=== PATIENT | male | born 1940 | race Caucasian/White ===

== ENCOUNTER 2023-05-07 10:14 | Emergency (ER) | payer MEDICARE, OTHER, SELFPAY ==
[2023-05-07 10:18] VITALS: BP 169/96
--- NOTE | 2023-05-07 11:30 | ED.GENMED ---
History of Present Illness
General
Chief Complaint: Rectal Bleeding
Time Seen by Provider: 05/07/23 10:36
Travel History
Have you had any contact with someone who has COVID-19?: No
Do you have any symptoms of coronavirus? Fever > 100 degrees, chills, cough, shortness of breath, sore throat, loss of taste or smell, muscle aches, or headache?: No
History of Present Illness
History of Present Illness:
82-year-old male with history of hypertension and coronary artery disease currently on dual antiplatelet therapy presents to the emergency department for evaluation of 1 episode of rectal bleeding this morning. He states he had a bowel movement and
noted blood in the bowl. Denies any rectal pain or rectal itching. Denies any abdominal pain. Denies any dizziness or lightheadedness.
Past History
Past History
ED Past Medical History: CAD, COPD, CVA, GERD, HTN, Hypercholesterolemia, [place] and Other
ED Past Surgical History: Cardiac (Stent) and Other (Skin grafting many years ago for severe del real. Kidney stone removal)
Patient has exhibited threatening behavior?: No
PSI?: No
Social History
Tobacco: Other (Cigar)
Alcohol: Occasional
Drug: None
Personal: Single
Living: alone
Employment: Retired
Family History
Family History: Other (No significant)
Review of Systems
Review of Systems
Allergies reviewed?: Yes
All Other Systems: ROS reviewed and negative except as documented in HPI and ROS
Phy Exam
Physical Exam
Physical Exam:
GEN: Well appearing, NAD, WDWN
HEENT: Oral mucosa moist, no scleral icterus
Cardiac: Regular rate
Lung: No respiratory distress, no tachypnea
Rectal: Brown stool in the rectal vault, trace amounts of bright red blood, no evidence for active bleeding, no fissure, no palpable masses or tenderness
MSK: No gross deformity or injuries
Skin: Good color, no pallor or jaundice, no rashes
Neuro: AO x3, moves all extremities freely
Psych: Calm, cooperative
Course
Orders/Labs/Results
Orders:
Orders
05/07/23 10:42
Basic Metabolic Panel Urgent
Complete Blood Count/No Diff Urgent
Vital Signs
Initial and Last Documented VS:
Initial Vital Signs
Temp Pulse Resp BP Pulse Ox
98.1 F 71 16 169/96 98
05/07/23 10:18 05/07/23 10:18 05/07/23 10:18 05/07/23 10:18 05/07/23 10:18
Last Documented Vital Signs
Temp Pulse Resp BP Pulse Ox
98.1 F 71 16 169/96 98
05/07/23 10:18 05/07/23 10:18 05/07/23 10:18 05/07/23 10:18 05/07/23 10:18
MDM/Problems Addressed
MDM/Problems Addressed:
Suspect internal hemorrhoidal bleeding. The patient was ordered for blood work especially to assess the hemoglobin however the patient declined this, stated to me 'I think I will be fine'. Will prescribe hydrocortisone suppositories for the next 5
days. Would not advise him to discontinue his antiplatelets given his known coronary disease. Ultimately recommend outpatient GI or colorectal follow-up, ED return parameters discussed
*Critical Care Note
Total Time (30-74mins, 75-104mins- exclusive of procedures): Not Applicable
ED Attending Note
-
Portions of this chart may have been created with voice recognition software.� Occasional wrong word or��sound alike� substitutions may have occurred due to the inherent limitations of voice recognition software.
Discharge Plan
Departure
Patient Disposition: Home (Routine Discharge)
Date of Disposition: 05/07/23
Time of Disposition: 11:31
Patient with high blood pressure during this ER visit?: No
Discharge Problem:
Rectal bleeding
Instructions: Bloody Stools, Adult (DC)
Prescriptions:
New
hydrocortisone acetate [Anusol-HC] 25 mg suppository
25 mg PA DAILY 5 Days Qty: 12 0RF
No Action
clopidogrel 75 mg Tablet
75 mg PO QPM
aspirin 81 mg Tablet,Delayed Release (Dr/Ec)
81 mg PO QPM
atorvastatin 80 mg Tablet
80 mg PO QPM Qty: 90 5RF
lisinopril 20 mg Tablet
20 mg PO BID Qty: 60 5RF
amlodipine 5 mg Tablet
5 mg PO BID Qty: 60 5RF
metoprolol succinate 50 MG tablet extended release 24 hr
50 mg PO QPM
Referrals:
Joesph Robbins MD [Active] -
Irwin Hein MD [Family Provider] -
Interventions
Interventions:
*Risk Screen - Suicide Last Done: 05/07/23 11:22
*General Assessment Last Done: 05/07/23 11:22
*Neglect/Abuse Screening Last Done: 05/07/23 11:22
ED- Fall Risk Assessment Last Done: 05/07/23 11:22
*ED COVID-19 Vaccine History Last Done: 05/07/23 10:18
*Nursing Disposition Last Done: 05/07/23 11:37
EA-Jtpdid-Qqfhqbdwde Assessment Last Done: 05/07/23 11:22
ED- Pulmonary Assessment Last Done: 05/07/23 11:22
Discharge Date and Time
Discharge Date/Time: 05/07/23 11:37
== END 2023-05-07 11:37 | disposition home or self-care (01) ==
LOC: EMR 10:14
PROVIDERS: EMERGENCY PHYSICIAN Emergency Medicine; FAMILY PHYSICIAN Internal Medicine
DX: K62.5 Hemorrhage of anus and rectum (principal); I10 Essential (primary) hypertension; I25.10 Atherosclerotic heart disease of native coronary artery without angina pectoris; Z79.02 Long term (current) use of antithrombotics/antiplatelets; J44.9 Chronic obstructive pulmonary disease, unspecified; K21.9 Gastro-esophageal reflux disease without esophagitis; E78.00 Pure hypercholesterolemia, unspecified; I25.2 Old myocardial infarction; Z86.73 Personal history of transient ischemic attack (TIA), and cerebral infarction without residual deficits
CPT/HCPCS: 99282

== ENCOUNTER 2023-06-02 22:38 | Inpatient (IN) | payer MEDICARE, OTHER, SELFPAY ==
[2023-06-02 19:05] VITALS: BP 125/91
[2023-06-02 19:30] VITALS: BP 177/82
[2023-06-02 19:34] LABS: % Eosinophils 1.4 % (0-6); % Immature Granulocytes 0.3 % (0-0.5); % Lymphocytes 22.1 % (20.5-51.1); % Monocytes 8.9 % (1.7-9.3); % Neutrophils 66.3 % (42.2-75.2); Absolute Basophils 0.1 10^3/uL (0-0.2); Absolute Eosinophils 0.1 10^3/uL (0-0.7); Absolute Lymphocytes 1.6 10^3/uL (1.2-3.4); Absolute Monocytes 0.7 10^3/uL (0.1-0.6); Absolute Neutrophils 4.8 10^3/uL (1.4-6.5); Hematocrit 41.5 % (39.0-52.0); Hemoglobin 14.3 g/dL (13.0-18.0); Mean Corp Hgb Conc. 34.5 g/dL (33.0-37.0); Mean Corpuscular Hgb 29.1 pg (27.0-31.0); Mean Corpuscular Volume 84.3 fL (80.0-94.0); Mean Platelet Volume 9.4 fL (7.4-10.4); Nucleated Red Blood Cells % 0 % (-); Platelet Count 274 10^3/uL (130-400); Red Blood Cell Count 4.92 10^6/uL (4.70-6.10); Red Cell Dist. Width 13.1 % (11.5-14.5); White Blood Cell Count 7.3 10^3/uL (4.8-10.8)
--- NOTE | 2023-06-02 19:39 | ED.GENMED ---
History of Present Illness
General
Chief Complaint: Chest Pain
Time Seen by Provider: 06/02/23 19:21
Travel History
Have you had any contact with someone who has COVID-19?: No
Do you have any symptoms of coronavirus? Fever > 100 degrees, chills, cough, shortness of breath, sore throat, loss of taste or smell, muscle aches, or headache?: No
History of Present Illness
History of Present Illness:
82-year-old male with history of coronary artery disease, hypertension, hyperlipidemia, and COPD presents to the emergency department for evaluation of brief onset of chest pain occurring approximately 5 PM today. He states he was seated on his
couch watching TV. The episode lasted approximately 20 to 25 minutes. He took baking soda orally and feels that symptoms improved after belching. Does not feel comparable to past MIs. Denies any current symptoms. Denies any associated fever,
chills, sweats, nausea, vomiting, or diarrhea. Does continue to smoke. Was last catheterized approximately 6 weeks ago, underwent PCI to the LAD. He states he is compliant with his cardiac medications
Past History
Past History
ED Past Medical History: CAD, COPD, CVA, GERD, HTN, Hypercholesterolemia, [place] and Other
ED Past Surgical History: Cardiac (Stent) and Other (Skin grafting many years ago for severe del real. Kidney stone removal)
Patient has exhibited threatening behavior?: No
PSI?: No
Social History
Tobacco: Other (Cigar)
Alcohol: Occasional
Drug: None
Personal: Single
Living: alone
Employment: Retired
Family History
Family History: Other (No significant)
Review of Systems
Review of Systems
Allergies reviewed?: Yes
All Other Systems: ROS reviewed and negative except as documented in HPI and ROS
Phy Exam
Physical Exam
Physical Exam:
GEN: Well appearing, NAD, WDWN
HEENT: Oral mucosa moist, no scleral icterus
Cardiac: Regular rate and rhythm, no murmurs, radial pulses 2+ bilaterally
Lung: No respiratory distress, no tachypnea
MSK: No gross deformity or injuries
Skin: Good color, no pallor or jaundice, no rashes
Neuro: AO x3, moves all extremities freely
Psych: Calm, cooperative
Scores
Heart Score for Chest Pain Patients
STEMI patient?: No
History: Moderately Suspicious
ECG: Nonspecific Repolarization
Age: >/= 65 years
Risk Factors: >/= 3 Risk Factors or History of CAD
Troponin: >/= 3 x Normal Limit
Heart Score for Chest Pain Patients: 8
Heart Score Risk: 72.7 % MACE over next 6 weeks
Course
Orders/Labs/Results
Orders:
Orders
06/02/23 18:56
Electrocardiogram (*1) Urgent
Reason for Study: Chest Pain
EKG- Treatment ONCE
06/02/23 19:26
Complete Blood Count/With Diff Urgent
Comprehensive Metabolic Panel Urgent
Glycohemoglobin (HgbA1c) Urgent
Troponin I Urgent
06/02/23 20:16
CR Chest - 2 Views Urgent
Comment:
Reason For Exam: chest pain
06/02/23 20:25
Heparin 3,800 units IV NOW STA
Nursing to Place Non Medication Order As Directed
Physician Order: PTT 6 hours after initial start of Heparin infusion
Above order entered?: Yes
06/02/23 20:30
Heparin 56145 Units/250 ml 25,000 units in 250 ml IV PER PROTOCOL
Weight to be used for heparin protocol in kilograms (kg):: 64
Protocol:: Cardiac Tx/Acute Coronary
PTT Goal Range to be used:: PTT 73 to 111 seconds
Order type:: Initial
INITIAL Infusion Dose (UNITS/KG/hr) & then follow protocol:: 12 units/kg/hr
Infusion Dose in UNITS/hr & then follow protocol (UNITS/hr):: 750
INFUSION RATE in mL/hr & then follow protocol (mL/hr):: 7.5
PTT less than or equal to 64 seconds:: Increase rate by 200 units/hr (+ 2 mL/hr)
PTT 64.1 to 72.9 seconds:: Increase rate by 100 units/hr (+ 1 mL/hr)
PTT 73 to 111 seconds:: Target Range. No change in rate.
PTT 111.1 to 130.9 seconds:: Decrease rate by 100 units/hr (- 1 mL/hr)
PTT 131 to 199.9 seconds:: HOLD for 1 hr. Then decrease rate by 200 units/hr (- 2 mL/hr)
PTT greater than or equal to 200 seconds:: HOLD for 2 hrs & Notify Provider. Then decrease by 200 units/hr (-
2 mL/hr)
Lab follow-up:: Each change, PTT q6h until 2 consecutive are therapeutic. Then PTT
daily.
06/02/23 20:35
PTT Urgent
Comment: Obtain baseline before beginning heparin infusion if not already collected
06/02/23 21:30
Admit/Transfer Patient As Directed
Co-Sign Provider:
Level of Care: Inpatient admission
Assign to:: IVU
Physician / Group: randi rucker
Diagnosis: chest pain
Reason for Hospitalization: chest pain
Expected length of stay greater than two midnights?: Yes
ELOS- Estimated Length of Stay in days: 3
I certify the patient meets the requirements for IP care: Yes
06/02/23 21:31
Code Status As Directed
Resuscitation Status: Full Code
06/02/23 22:42
Troponin I Q3H
Comment: at admit & Q3H for 3 total including ED draws, obtain ECG with each level
06/02/23 22:42
CARDIOLOGY CONSULT Routine
Consulting Provider: Aashish Burris
Was physician already notified: Yes
Heparin Protocol- PTT Orders As Directed
PTT per Heparin protocol: -Obtain CBC and baseline PTT - if not already collected.
-Obtain PTT 6 hours from start of infusion. Then, every 6 hours until 2 consecutive
PTT's are therapeutic. Then, PTT Daily.
-With each rate change, obtain PTT every 6 hours until 2 consecutive PTT's are
therapeutic. Then, PTT Daily.
Activity As Directed
Activity Level: As Tolerated
ECG as needed As Directed
ECG as needed for:: Chest Pain
Additional Instructions:: with chest pain x 2 episodes.
INT (Intravenous Needle Therapy) As Directed
Comment: maintain peripheral IV access
Intake/ Output As Directed
Frequency: Per unit guidelines
Notify MD As Directed
Notify physician if: PTT is greater than or equal to 200.
Vital Signs As Directed
Frequency: q4h
Weight As Directed
Frequency: Daily
Pt Eval And Treat Routine
Activity Level: As Tolerated
06/03/23 00:00
Electrocardiogram (*1) Q6H
Reason for Study: Chest Pain
Comment: at admission and Q3H for total of 3, to be done with each troponin
06/03/23 03:00
PTT Urgent
06/03/23 06:00
Basic Metabolic Panel IN AM
Cardiovascular Evaluation IN AM
Complete Blood Count/No Diff IN AM
06/03/23 07:00
Electrocardiogram (*1) Q6H
Reason for Study: Chest Pain
Comment: at admission and Q3H for total of 3, to be done with each troponin
06/03/23 08:00
Amlodipine [Norvasc] 5 mg PO BID
Lisinopril [Zestril] 20 mg PO DAILY
06/03/23 18:00
Aspirin Low Dose EC [Aspir Low (Enteric Coated)] 81 mg PO QPM
Atorvastatin [Lipitor] 80 mg PO QPM
Clopidogrel Bisulfate [Plavix] 75 mg PO QPM
Metoprolol Xl [Toprol Xl] 50 mg PO QPM
06/04/23 06:00
Basic Metabolic Panel IN AM
Complete Blood Count/No Diff IN AM
Complete Blood Count/No Diff Q2D
Comment: notify provider: Platelet count < 130,000 or decrease by 50% from baseline
06/05/23 06:00
Basic Metabolic Panel IN AM
Complete Blood Count/No Diff IN AM
06/06/23 06:00
Basic Metabolic Panel IN AM
Complete Blood Count/No Diff IN AM
Complete Blood Count/No Diff Q2D
Comment: notify provider: Platelet count < 130,000 or decrease by 50% from baseline
06/07/23 06:00
Basic Metabolic Panel IN AM
Complete Blood Count/No Diff IN AM
06/08/23 06:00
Complete Blood Count/No Diff Q2D
Comment: notify provider: Platelet count < 130,000 or decrease by 50% from baseline
06/10/23 06:00
Complete Blood Count/No Diff Q2D
Comment: notify provider: Platelet count < 130,000 or decrease by 50% from baseline
06/12/23 06:00
Complete Blood Count/No Diff Q2D
Comment: notify provider: Platelet count < 130,000 or decrease by 50% from baseline
06/14/23 06:00
Complete Blood Count/No Diff Q2D
Comment: notify provider: Platelet count < 130,000 or decrease by 50% from baseline
06/16/23 06:00
Complete Blood Count/No Diff Q2D
Comment: notify provider: Platelet count < 130,000 or decrease by 50% from baseline
06/18/23 06:00
Complete Blood Count/No Diff Q2D
Comment: notify provider: Platelet count < 130,000 or decrease by 50% from baseline
Abnormal Lab Results
06/02/23
19:26
Absolute Monos (auto) 0.7 H 10^3/uL
(0.1-0.6)
Glucose 104 H mg/dl
(70-99)
Troponin I 0.242 H* ng/ml
06/02/23 19:26
06/02/23 19:26
Vital Signs
Initial and Last Documented VS:
Initial Vital Signs
Temp Pulse Resp BP Pulse Ox
96.9 F L 78 18 125/91 98
06/02/23 19:05 06/02/23 19:05 06/02/23 19:05 06/02/23 19:05 06/02/23 19:05
Last Documented Vital Signs
Temp Pulse Resp BP Pulse Ox
98.1 F 68 20 156/81 99
06/02/23 22:43 06/02/23 23:15 06/02/23 22:43 06/02/23 22:56 06/02/23 23:46
MDM/Problems Addressed
MDM/Problems Addressed:
82-year-old male presents with brief episode of chest pain lasting approximately 30 minutes. His EKG is unchanged from prior however he has a significant troponin elevation. He has numerous cardiovascular risk factors and continues to smoke.
Although his current symptoms are not typical for his prior angina/MD related pain, we cannot discount the significance of the troponin elevation particular given his significant known coronary artery disease. Patient started on heparin. As he is
maintained on dual antiplatelets at home we will not load him with aspirin at this time. Will admit to the hospitalist service with cardiology consultation for further management
Comment
Comment:
EKG independently interpreted by me shows normal sinus rhythm at a rate of [address] depressions in lead V4 as well as flattening/inverted T waves in aVL. Comparable to past EKGs
*Critical Care Note
Total Time (30-74mins, 75-104mins- exclusive of procedures): 30 minutes
comment:
Critical care time: 30 minutes
Critical care time was exclusive of: Separately billable procedures, treating other patients, and teaching time
Critical care was necessary to treat or prevent imminent or life-threatening deterioration of the following conditions: NSTEMI
Critical care time spent personally by me on the following activities:
[x] Review of old charts
[x] Obtaining history from patient or surrogate
[x] Ordering and review of the laboratory studies
[x] Ordering and review of radiographic studies
[x] Ordering and performing treatments and interventions
[x] Patient patient's response to treatment
[x] Development of treatment plan with patient or surrogate
ED Attending Note
-
Portions of this chart may have been created with voice recognition software.� Occasional wrong word or��sound alike� substitutions may have occurred due to the inherent limitations of voice recognition software.
Discharge Plan
Departure
Patient Disposition: Admit
Date of Disposition: 06/02/23
Time of Disposition: 20:40
Admit to: IVU
Presentation/result/management discussed w/ accepting MD/DO: Hospitalist
Discharge Problem:
Non-ST elevation (NSTEMI) myocardial infarction
Interventions
Interventions:
*Risk Screen - Suicide Last Done: 06/02/23 22:53
*General Assessment Last Done: 06/02/23 19:05
*Neglect/Abuse Screening Last Done: 06/02/23 19:05
ED- Fall Risk Assessment Last Done: 06/02/23 20:56
*ED COVID-19 Vaccine History Last Done: 06/02/23 22:49
*Nursing Disposition Last Done: 06/02/23 22:42
ED- Cardiac Assessment Last Done: 06/02/23 20:56
Discharge Date and Time
Discharge Date/Time: 06/02/23 22:44
[2023-06-02 19:48] LABS: ALT (SGPT) 21 U/L (0-50); AST (SGOT) 35 U/L (17-59); Albumin 4.5 g/dl (3.5-5.0); Alkaline Phosphatase 89 U/L (38-126); Blood Urea Nitrogen 20 mg/dl (9-20); Carbon Dioxide 28 mmol/L (22-30); Chloride 99 mmol/L (98-107); Glucose 104 mg/dl (70-99); Sodium 137 mmol/L (135-145); Total Bilirubin 0.6 mg/dl (0.2-1.3); Total Protein 7.6 g/dl (6.3-8.2); eGFR > 60.00
[2023-06-02 20:00] VITALS: BP 153/80
[2023-06-02 20:04] LABS: Troponin I 0.242 ng/ml
[2023-06-02 20:55] LABS: APTT 24.8 Sec (23.4-35.0)
[2023-06-02] MEDS: HEPARIN 3800 UNITS IV (20:57)
[2023-06-02] MEDS: HEPARIN 25000 UNITS/250 ML IV (21:01)
[2023-06-02 21:03] VITALS: BP 169/78
--- NOTE | 2023-06-02 21:05 | HPS.HSE ---
Addendum entered and electronically signed by Carter Willams DO 06/02/23 22:54:
Patient seen and examined independently. Agree with findings and plan as set forth by TERESA Lange.
Patient is an 82y M with PMH significant for ASCVD s/p coronary stent 04/09/23, COPD and hypertension who presents to ED complaining of chest pain. Patient states that he developed chest pain while sitting and watching TV this evening around 5
PM. Pain lasted for about 30 minutes before resolving. He is currently pain free in the ED. He denies any associated lightheadedness, dizziness, SOB or diaphoresis.
Ass:
ACS
ASCVD
COPD
Benign Hypertension
Dyslipidemia
Tobacco Use Disorder
Plan:
Admit for further evaluation and treatment.
Continue current CV med regimen.
Add IV heparin for now and follow troponin to peak.
Follow for any recurrent chest pain.
Cardiology evaluation appreciated.
Cath on Sunday - perhaps sooner if any recurrent / persistent pain.
Encouraged smoking cessation (has 2 cigars daily). Patient does not believe that this is related to his current symptoms.
Original Note:
Family Physician
-
Family Physician: Irwin Hein
Chief Complaint
-
mid sternum chest heaviness
History of Present Illness
82-year-old male with history of coronary artery disease, hypertension, hyperlipidemia, and COPD presents to us with non radiating, non exertional chest heaviness today evening which lasted for 30 minutes. patient denied sob.� He took baking soda
orally and feels that symptoms improved after belching.� Denies any associated fever, chills, sweats, nausea, vomiting, or diarrhea. denied [place]< dizzy or syncopal episode. denied dysuria or hematuria. � Does continue to smoke.� Was last catheterized
approximately 6 weeks ago, underwent PCI to the LAD.� He states he is compliant with his cardiac medications.
noted elevated trop. started on heparin drip. admitting for further managment.
Medical History
Past Medical History
Past Medical History: Reports Other
Additional Past Medical History:
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
Past Surgical History: Reports Other
Additional Past Surgical History:
extraction of renal calculi
skin graft LE for del real
Social History
Tobacco: Smoker (2-3 cigars daily)
Alcohol: Occasional
Drug: None
Personal: Single
Living: Alone
Family History
Family History: Not pertinent
Allergies / Home Medications
Allergies reflects when Allergies were last updated in [facility].
Home Medications with original date entered in [facility]
Allergy/Medication List:
Allergies
Allergy/AdvReac Type Severity Reaction Status Date / Time
No Known Allergies Allergy Verified 05/07/23 10:20
Home Medications
aspirin 81 mg tablet,delayed release 81 mg PO QPM Blood Clot Prevention/Tx 04/06/23
clopidogrel 75 mg tablet 75 mg PO QPM Blood Clot Prevention/Tx 04/06/23
amlodipine 5 mg tablet 5 mg PO BID #60 tabs 04/10/23
atorvastatin 80 mg tablet 80 mg PO QPM #90 tabs 04/10/23
metoprolol succinate 50 mg tablet,extended release 24 hr 50 mg PO QPM Heart Failure 05/07/23
lisinopril 20 mg tablet 20 mg PO DAILY 06/02/23
Review of Systems
-
Constitutional: Reports No Symptoms
EENT: Reports No Symptoms
Respiratory: Reports No Symptoms
Cardiac: Reports Chest Pain
Abdomen/GI: Reports No Symptoms
: Reports No Symptoms
Musculoskeletal: Reports No Symptoms
Skin: Reports No Symptoms
Neurological: Reports No Symptoms
Endocrine: Reports No Symptoms
Hematologic/Lymphatic: Reports No Symptoms
Psych: Reports No Symptoms
Physical Exam
Vital Signs
Vital Signs
Temp Pulse Resp BP Pulse Ox
96.9 F L 78 18 125/91 98
06/02/23 19:05 06/02/23 19:05 06/02/23 19:05 06/02/23 19:05 06/02/23 19:05
Physical Exam
General: Well Developed, Well Nourished and No Apparent Distress
HEENT: NormoCephalic, Moist mucous membranes and Atraumatic
Respiratory: Decreased Breath Sounds
Cardiac: S1/S2 and Regular Rhythm; No Murmur or Rub
GI: Soft, Non Tender, Non Distended and Normal Bowel Sounds; No Organomegaly
Rectal: Deferred by Provider
Musculoskeletal: No Clubbing, No Cyanosis and No Edema
Skin: No Rash
Neuro: AO x 3 and Nonfocal/grossly intact
Psych: Calm
Laboratory Results
-
06/02/23 19:26
06/02/23 19:26
Laboratory Results
Total Bilirubin 0.6 mg/dl (0.2-1.3) 06/02/23 19:26
AST 35 U/L (17-59) 06/02/23 19:26
ALT 21 U/L (0-50) 06/02/23 19:26
Alkaline Phosphatase 89 U/L (38-126) 06/02/23 19:26
Troponin I 0.242 ng/ml H* 06/02/23 19:26
Data Reviewed
-
Lab Data: Labs Reviewed by me
Impression/Plan
-
#NSTEMI
-recent stent to mid LAD
-trop 0.242
-EKG with NSR with nonspecific ST and T wave
-heparin drip
-aspirin,Plavix continued
-maintain NPO
-cardiology consulted
#essential htn
-Norvasc continued
-lisinopril continued
-metoprolol continued
#HLD
-statin continued
#DVT Prophylaxis
-heparin
#CODE status
-full code
[2023-06-02 22:00] VITALS: BP 150/73
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
[2023-06-02 22:44] VITALS: BMI 21.0
[2023-06-02 22:56] VITALS: BP 156/81
--- NOTE | 2023-06-02 23:53 | PTCARENOTE ---
Rec'd pt. into room 2255 from ED AAOx3; VSS, NSR-SB (50's) on the monitor. Pt. states he is chest pain free. Heparin gtt infusing at 750 units/hr. Ambulatory with steady gait. Oriented to room and plan of care discussed, understanding
verbalized. Pt. currently resting quietly.
[2023-06-03] VITALS (10 sets, daily range): BP systolic 137–178; BP diastolic 72–85
[2023-06-03 03:09] LABS: Hematocrit 38.6 % (39.0-52.0); Hemoglobin 13.6 g/dL (13.0-18.0); Mean Corp Hgb Conc. 35.2 g/dL (33.0-37.0); Mean Corpuscular Hgb 29.1 pg (27.0-31.0); Mean Corpuscular Volume 82.7 fL (80.0-94.0); Mean Platelet Volume 9.4 fL (7.4-10.4); Platelet Count 238 10^3/uL (130-400); Red Blood Cell Count 4.67 10^6/uL (4.70-6.10); Red Cell Dist. Width 13.1 % (11.5-14.5); White Blood Cell Count 6.2 10^3/uL (4.8-10.8)
[2023-06-03 03:21] LABS: APTT 50.5 Sec (23.4-35.0)
[2023-06-03 03:57] LABS: Troponin I 0.595 ng/ml
[2023-06-03 04:33] LABS: Blood Urea Nitrogen 17 mg/dl (9-20); Calcium 8.9 mg/dl (8.4-10.2); Carbon Dioxide 27 mmol/L (22-30); Chloride 102 mmol/L (98-107); Estimated Creatinine Clearance 62 ml/min; Glucose 103 mg/dl (70-99); HDL Cholesterol 47 mg/dl; LDL Cholesterol, Calculated 50 mg/dl; Potassium 4.3 mmol/L (3.5-5.1); Sodium 138 mmol/L (135-145); Total Cholesterol 106 mg/dl (50-199); Triglyceride 47 mg/dl (10-149); Very Low Density Lipoprotein 9 mg/dl (0-30); eGFR > 60.00
--- NOTE | 2023-06-03 05:25 | PTCARENOTE ---
Pt. remains chest pain free. EKG from 307 and troponin results (0.595) shown/reported to Aries Viramontes [facility]- [employer]AN[employer] OPERATION EVALUATION MANAGER. No new orders at this time. Pt. resting quietly.
--- NOTE | 2023-06-03 07:49 | W.PN.HOSP.TC ---
Today's Communication/Plan
-
Await cardiac catheterization on Sunday
Assessment / Plan
Assessment / Plan
Gen-AAOx3, NAD
HEENT-NC, AT, anicteric, clear oral mm
Neck-supple
CV-reg, no M, +S1/S2
Lungs-clear B/L
Abd-soft, NT, ND
Ext-no edema
Musculoskeletal-no cyanosis, clubbing
Skin-warm and dry
Neuro-grossly non-focal
Psych-calm, cooperative
NSTEMI -waiting for troponin to peak. Continue IV heparin, aspirin, Plavix, Lipitor. Metoprolol. Awaiting cardiac catheterization on Sunday.
CAD -admitted in March 2023 to our hospital for non-ST elevation [place], underwent successful stenting of mid LAD.
History of TIA -left vertebral artery stenosis.
COPD without exacerbation
Hyperlipidemia -continue atorvastatin.
Essential hypertension -elevated blood pressure noted. Resume home meds.
Tobacco dependence
Full code
Patient requesting to leave AMA to feed his cats. I tried to explain to him that he had a heart attack and it is certainly not safe to do so. I asked him to find someone else to feed the cats but he claims there is no one else available. He has a
girlfriend but she is not available until Sunday. I told him it is not safe to leave and I will not allow him to do so. He is threatening to elope. Encouraged him to speak with cardiology this morning.
Anticipated Discharge: > 48 hours
Subjective/Interval History
-
Date of Service: June 03, 2023
Patient seen and examined. Denies chest pain currently. No complaints.
Objective Data
-
Labs:
Laboratory Results
06/02/23 06/02/23 06/03/23
19:26 20:35 03:03
WBC 7.3 6.2
Hgb 14.3 13.6
Hct 41.5 38.6 L
Plt Count 274 238
APTT 24.8 50.5 H
Sodium 137 138
Potassium 4.0 4.3
Chloride 99 102
Carbon Dioxide 28 27
BUN 20 17
Creatinine 0.9 0.8
Glucose 104 H 103 H
Calcium 9.0 8.9
Total Bilirubin 0.6
AST 35
ALT 21
Alkaline Phosphatase 89
06/03/23
10:15
WBC
Hgb
Hct
Plt Count
APTT Pending
Sodium
Potassium
Chloride
Carbon Dioxide
BUN
Creatinine
Glucose
Calcium
Total Bilirubin
AST
ALT
Alkaline Phosphatase
Vital Signs:
Vital Signs
Temp Pulse Resp BP Pulse Ox
97.5 F 58 16 160/82 94
06/03/23 07:09 06/03/23 05:05 06/03/23 07:09 06/03/23 05:05 06/03/23 07:09
I&O
06/02/23 06/03/23 06/04/23
05:59 06:59 06:59
Output Total
Balance
Review of Systems
-
History Source: Patient
All other systems: Reviewed and negative
[2023-06-03] MEDS: ZESTRIL 20 MG PO (07:58)
[2023-06-03] MEDS: NORVASC 5 MG PO ×2 (07:59→19:36)
[2023-06-03 09:51] LABS: Glycohemoglobin (HgbA1c) 5.6 % (4.0-5.6)
[2023-06-03 10:17] LABS: APTT 43.2 Sec (23.4-35.0)
--- NOTE | 2023-06-03 13:25 | W.PN.CARDCBS ---
Today's Communication / Plan
-
Change Imdur to Ranexa
For cardiac catheterization on 06/03
Convinced patient to stay in hospital and get someone else to feed the cats
d/w nursing
Impression / Plan
-
Impression:
Chest pain/non-STEMI with peak troponin of 0.6
History of non-STEMI March 2023 with peak troponin of 1.6
Status post drug-eluting stent of LAD March 2023
Non-ST segment elevation [place] 2015, refused for CABG at that time related to lack of conduit
Orbital atherectomy with Promus drug-eluting stent to mid LAD July 2015
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
Cerebrovascular disease, history of TIA 2013
Left vertebral artery stenosis
Carotid ultrasound with <50% bilateral stenosis
Degenerative disc disease
History of lower extremity del real
Hypertension
Hypercholesterolemia
Tobacco use
Echocardiogram 04/09/2023: Ejection fraction 55 to 60%
04/09/23 [facility]:
1.� Left heart catheterization, coronary angiogram.
2.� Ultrasound-guided access.
3.� Successful percutaneous coronary intervention of hazy 90% mid LAD focal stenosis proximal to prior stent with a 3.0 x 15 mm Xience karen point drug-eluting stent, postdilated with a 3.25 x 15 mm NC balloon at 18 marques distally and with a 3.5 x 8 mm
NC balloon at 18 marques proximally with an excellent angiographic result.
Cardiac catheterization 04/2018: Left main with luminal irregularities, calcified LAD, patent Promus stent mid LAD, 50% stenosis proximal to stent, OM 2 with 90% stenosis, CHILD CARE AIDE of RCA with good collateral flow left to right, normal EF, 2.5/20 Synergy
stent to OM 2
Catheterization 08/12/2015
CONCLUSION
1.� Unsuccessful rotational atherectomy of the left anterior descending artery secondary to device failure outside the body.�
Catheterization 08/09/2015
CORONARY FINDINGS
Dominance: Right
Left Main: 30% proximal stenosis. The coronaries are heavily calcified.
LAD: There is a 99% mid LAD stenosis followed by another sequential 90% stenosis.
Circumflex: There is a long smooth 75% stenosis of the mid circumflex before a large OM 2.
RCA: There is a 99% mid stenosis followed by a 90% distal stenosis that feeds the PDA. The distal RCA fills very well via left to right collaterals.
VENTRICULOGRAPHY: There is normal contractility of all lynch with normal left ventricular function. The ejection fraction is 58%. There is some diastolic mitral regurgitation.
Plan:
He remains pain-free on IV heparin as well as aspirin and Plavix
Plan is for cardiac catheterization on Saturday 06/03
He declined Imdur and will switch to Ranexa given possible interaction with nitrous oxide which he uses for ED
LDL 58�continue Lipitor
Progress Note - Direct Support Professional Home Health
Subjective
Date of Service: June 03, 2023
No complaints
Objective
Labs:
06/03/23 03:03
06/03/23 03:03
Labs
Hgb 13.6 g/dL (13.0-18.0) 06/03/23 03:03
Hct 38.6 % (39.0-52.0) L 06/03/23 03:03
Plt Count 238 10^3/uL (130-400) 06/03/23 03:03
APTT 43.2 Sec (23.4-35.0) H 06/03/23 09:49
Sodium 138 mmol/L (135-145) 06/03/23 03:03
Potassium 4.3 mmol/L (3.5-5.1) 06/03/23 03:03
BUN 17 mg/dl (9-20) 06/03/23 03:03
Creatinine 0.8 mg/dL (0.7-1.3) 06/03/23 03:03
Glucose 103 mg/dl (70-99) H 06/03/23 03:03
Troponins
06/02/23 06/03/23 06/03/23
19:26 03:03 09:49
Troponin I 0.242 H* 0.595 H* D 0.470 H*
06/03/23
10:15
Troponin I Cancelled
Vital Signs and I&O:
Vital Signs
Temp Pulse Resp BP Pulse Ox
97.9 F 58 18 155/74 97
06/03/23 11:35 06/03/23 12:00 06/03/23 11:35 06/03/23 11:35 06/03/23 11:35
Vital Signs
Temp Pulse Resp BP Pulse Ox
97.9 F 58 18 155/74 97
06/03/23 11:35 06/03/23 12:00 06/03/23 11:35 06/03/23 11:35 06/03/23 11:35
Intake & Output
06/01/23 06/02/23 06/03/23 06/04/23
05:59 05:59 06:59 06:59
Output Total 200 / 200
Balance -200 / -200
Physical Exam
Physical Exam
General: Well developed, well nourished in NAD.
Neck: Supple, no JVD, HJR, carotids +2 B/L, no bruits bilaterally.
Heart: Non displaced PMI, RRR, no murmurs, No S3, S4, no rubs.
Lungs: Scattered rhonchi
Extremities: No clubbing, cyanosis or edema bilaterally.
Neuro: Grossly nonfocal, awake, alert and oriented x3.
[2023-06-03 17:16] LABS: APTT 52.4 Sec (23.4-35.0)
[2023-06-03] MEDS: LIPITOR 80 MG PO (18:09)
[2023-06-03] MEDS: TOPROL XL 50 MG PO (18:10)
[2023-06-03] MEDS: PLAVIX 75 MG PO (18:10)
[2023-06-03] MEDS: ASPIR LOW (ENTERIC COATED) 81 MG PO (18:10)
[2023-06-03] MEDS: RANEXA EXTENDED RELEASE 500 MG PO (19:36)
[2023-06-03] MEDS: HEPARIN 25000 UNITS/250 ML IV (21:13)
--- NOTE | 2023-06-03 21:54 | PTCARENOTE ---
Received pt at handoff. AOx3. Assessment noted as documented. Heparin gtt infusing at 1350 units/hr. Ambulatory in room; steady gait. Offers no complaints at this time. POC reviewed w/ pt. Aware of NPO status at midnight. Resting in bed; call tovar
w/in reach.
[2023-06-04] VITALS (15 sets, daily range): BP systolic 97–164; BP diastolic 73–89; PULSE 60; O2SAT 96; BMI 21.2
[2023-06-04 00:37] LABS: APTT 71.8 Sec (23.4-35.0)
[2023-06-04 06:22] LABS: Hematocrit 37.8 % (39.0-52.0); Hemoglobin 12.9 g/dL (13.0-18.0); Mean Corp Hgb Conc. 34.1 g/dL (33.0-37.0); Mean Corpuscular Hgb 28.7 pg (27.0-31.0); Mean Platelet Volume 9.8 fL (7.4-10.4); Platelet Count 233 10^3/uL (130-400); Red Cell Dist. Width 13.1 % (11.5-14.5); White Blood Cell Count 5.9 10^3/uL (4.8-10.8)
[2023-06-04 06:49] LABS: Blood Urea Nitrogen 18 mg/dl (9-20); Calcium 8.4 mg/dl (8.4-10.2); Carbon Dioxide 25 mmol/L (22-30); Chloride 105 mmol/L (98-107); Estimated Creatinine Clearance 50 ml/min; Glucose 95 mg/dl (70-99); Sodium 134 mmol/L (135-145); eGFR > 60.00
[2023-06-04] MEDS: RANEXA EXTENDED RELEASE PO ×2 (08:23→12:07)
[2023-06-04] MEDS: NORVASC 5 MG PO ×2 (08:23→20:22)
[2023-06-04] MEDS: ZESTRIL 20 MG PO (08:23)
--- NOTE | 2023-06-04 08:32 | PTCARENOTE ---
assumed care of pt from previous shift RN, sinus rhythm on tele, + peripheral pulses, no edema, denies CP or SOB, lungs clr, NPO maintained pre CCL, voids spontaneously, heparin gtt infusing at 1450 units/hr, awaiting PTT result. Plan of care
reviewed w the pt and questions encouraged.
[2023-06-04 08:34] LABS: APTT 138.6 Sec (23.4-35.0)
--- NOTE | 2023-06-04 09:13 | W.PN.HOSP.TC ---
Addendum entered and electronically signed by Carolyn Cuadra MD 06/04/23 09:19:
Correction- Trop Peaked
Original Note:
Today's Communication/Plan
-
Cath today
Assessment / Plan
Assessment / Plan
CVS: S1-S2 normal
Chest: CTA B/L
Abdomen: Soft, NT / Bowel sounds present
Extremities: No edema
Denies any chest pain or shortness of breath this morning
#NSTEMI -waiting for troponin to peak. Continue IV heparin, aspirin, Plavix, Lipitor. Metoprolol. Awaiting cardiac catheterization on Sunday.
#CAD -admitted in March 2023 to our hospital for non-ST elevation [place], underwent successful stenting of mid LAD.
Percutaneous coronary intervention to the obtuse marginal in 2018
#History of TIA -left vertebral artery stenosis.
#COPD without exacerbation
#Hyperlipidemia -continue atorvastatin.
#Essential hypertension -elevated blood pressure noted. Resume home meds.
#DJD
#COPD
#Enlarged prostate with history of TURP
#Tobacco dependence-cigars
#Full code
D/W RN
.
Anticipated Discharge: Within 24 hours
Subjective/Interval History
-
Date of Service: June 04, 2023
Objective Data
-
Labs:
Laboratory Results
06/04/23 06/04/23 06/04/23
00:11 04:58 08:13
WBC 5.9
Hgb 12.9 L
Hct 37.8 L
Plt Count 233
APTT 71.8 H 138.6 H
Sodium 134 L
Potassium 4.0
Chloride 105
Carbon Dioxide 25
BUN 18
Creatinine 1.0
Glucose 95
Calcium 8.4
06/04/23
15:00
WBC
Hgb
Hct
Plt Count
APTT Pending
Sodium
Potassium
Chloride
Carbon Dioxide
BUN
Creatinine
Glucose
Calcium
Vital Signs:
Vital Signs
Temp Pulse Resp BP Pulse Ox
98.7 F 55 20 148/85 100
06/04/23 07:50 06/04/23 08:00 06/04/23 07:50 06/04/23 07:52 06/04/23 07:50
I&O
06/03/23 06/04/23 06/05/23
06:59 06:59 06:59
Output Total 400 / 400 400 / 400
Balance -400 / -400 -400 / -400
--- NOTE | 2023-06-04 09:59 | CM ---
Reviewed chart. Met with Mr. Lau to review discharge plans. He states prior to admission he resides alone in a two story home with two steps to enter. He states he has a full flight of steps to get to bedroom/full bathroom. He states he has a
powder room on the first floor. He states prior to admission he was independent with ambulation and adls. He states he does not have any DME in the home. He states he has a prescription plan and uses [facility]. Medical work-up in progress. The
discharge plan is to return home when medically stable.
--- NOTE | 2023-06-04 15:00 | PTCARENOTE ---
report given to CCL nurse.
[2023-06-04] MEDS: ASPIR LOW (ENTERIC COATED) 81 MG PO (16:14)
[2023-06-04] MEDS: PLAVIX 75 MG PO (16:15)
[2023-06-04 16:49] LABS: ACT-LR - POC 232 Seconds (116-155)
[2023-06-04 17:05] LABS: ACT-LR - POC 279 Seconds (116-155)
--- NOTE | 2023-06-04 17:50 | PTCARENOTE ---
received pt from [facility], right groin w dressing intact, + peripheral pulses.
--- NOTE | 2023-06-04 17:53 | ITS.CL.CATH ---
[employer] - Catheterization
Cardiac Catheterization
Procedure Report:
LEFT HEART CATH AND CORONARY INTERVENTION
Date of Procedure: June 04, 2023
Referring: Dr. Aashish Burris
PROCEDURES:
[ ]
INDICATION: This is an 82-year-old gentleman with a complicated cardiovascular history including multiple coronary artery stents in 2016 in 2019 after being turned down for CABG in 2016 secondary to poor conduit availability. He was most recently
admitted to [facility] on April 09, 2023 with chest discomfort and elevated troponin consistent with a non-ST segment elevation myocardial infarction. He underwent successful stenting of the LAD with a 3.0 x 15 mm Xience stent that was
implanted and postdilated with a 3.25 mm noncompliant balloon distally and with a 3.5 mm noncompliant balloon proximally. The chest heaviness, neck discomfort and bilateral arm discomfort has improved significantly following this procedure,
however, he now presents with chest tightness with physical exertion with no associated neck or arm discomfort. He has been very resistant to titration of medications for maximal effect although is chronically maintained on metoprolol XL 50 mg
daily and amlodipine 5 mg p.o. twice daily. His troponin was found to be mildly elevated on admission at 0.242 and increased to 0.595 nanograms per milliliter. 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
is collateralized from the circumflex.
ACCESS: Right common femoral artery, 6 Mongolian sheath
HEMODYNAMICS (mmHg):
AO (s/d, m) : 163/74
CORONARY FINDINGS
Dominance: Right
LEFT MAIN: Minor distal tapering
LEFT ANTERIOR DESCENDING: The LAD is heavily calcified and arises normally from the left main running in the anterior interventricular groove. The stent implanted in March 2023 remains widely patent. There are 2 major diagonal branches arising
from the mid LAD which are calcified.
CIRCUMFLEX: The circumflex is a medium caliber vessel giving rise to a single large obtuse marginal branch. There is a tubular 80% ostial to proximal circumflex stenosis. The prior OM stent is widely patent. There are well-developed circumflex
collaterals to the occluded RCA
RIGHT CORONARY: Known to be 100% occluded at its origin
VENTRICULOGRAPHY: Not done
ANGIOPLASTY PROCEDURE DETAIL: Upon review of the diagnostic catheterization films the decision was made to proceed with percutaneous revascularization of the circumflex/OM. Intravenous heparin was administered and the ACT was monitored throughout
the procedure. The origin of the left main was cannulated with a 6 Mongolian EBU 3.75 guide catheter and a BMW guidewire was advanced across the 80% proximal circumflex stenosis and into the distal portion of the only sizable obtuse marginal branch.
A second BMW guidewire was advanced to the distal LAD.
Balloon predilation was performed with a 2.25 x 12 mm NC Trek with serial inflations to 18-24 marques before the high-grade mid circumflex stenosis became fully expanded. A 2.5 x 15 mm Aaron stent was then advanced over the guidewire in position with
fluoroscopic and angiographic guidance. The stent was implanted from the ostium of the circumflex covering the stenotic segment. The stent was deployed at 12 marques then postdilated with a 2.75 mm noncompliant balloon to 20 marques with a nice
angiographic result
RADIATION SUMMARY: Fluoro Time (min): 9.7, Dose (mGy): 1012, DAP (Gy.cm2) : 61.5
CONCLUSIONS
1. Successful stenting of ostial to proximal circumflex with a 2.5 x 15 mm Aaron stent that was implanted at nominal pressures then postdilated to high pressures with a 2.75 mm noncompliant balloon
2. Patent mid LAD stent from 04/09/2023
3. Chronically occluded RCA
RECOMMENDATIONS
1. Uninterrupted dual antiplatelet therapy
2. Patient needs more aggressive control of his blood pressures. In the past he has been reluctant to change any of his medications which complicates management of his recurrent coronary disease.
3. Smoking cessation remains essential
Copy to: Dr. Wilfred Nevarez
[2023-06-04] MEDS: LIPITOR 80 MG PO (18:08)
[2023-06-04] MEDS: TOPROL XL 50 MG PO (18:08)
[2023-06-04] MEDS: RANEXA EXTENDED RELEASE 500 MG PO (20:23)
[2023-06-05 04:11] VITALS: BP 136/81
[2023-06-05 04:49] LABS: Hematocrit 39.7 % (39.0-52.0); Hemoglobin 13.4 g/dL (13.0-18.0); Mean Corp Hgb Conc. 33.8 g/dL (33.0-37.0); Mean Corpuscular Hgb 28.7 pg (27.0-31.0); Mean Platelet Volume 9.7 fL (7.4-10.4); Platelet Count 230 10^3/uL (130-400); Red Blood Cell Count 4.67 10^6/uL (4.70-6.10); Red Cell Dist. Width 13.1 % (11.5-14.5); White Blood Cell Count 7.6 10^3/uL (4.8-10.8)
[2023-06-05 05:10] LABS: Blood Urea Nitrogen 16 mg/dl (9-20); Calcium 8.8 mg/dl (8.4-10.2); Carbon Dioxide 23 mmol/L (22-30); Chloride 106 mmol/L (98-107); Estimated Creatinine Clearance 45 ml/min; Glucose 88 mg/dl (70-99); Potassium 4.4 mmol/L (3.5-5.1); Sodium 134 mmol/L (135-145); eGFR > 60.00
--- NOTE | 2023-06-05 05:39 | PTCARENOTE ---
patient slept well overnight. no cp/sob. SB/SR 50s-70s. bp stable. R groin site, intact. ambulating independently. urinating yellow urine in the urinal. reviewed plan of care with patient and verbalized understanding. eager to go home. call tovar
within reach.
--- NOTE | 2023-06-05 08:00 | PTCARENOTE ---
resumed care of pt from previous RN. walking rounds completed. NSS. HR 60s. 96% RA. lungs clear.right groin w dressing intact, + peripheral pulses. no edema. independent in care. hopeful d/c today. will continue to monitor.
[2023-06-05 08:07] VITALS: BP 134/69
--- NOTE | 2023-06-05 08:33 | W.PN.HOSP.TC ---
Addendum entered and electronically signed by Carolyn Cuadra MD 06/05/23 13:36:
Discharge time 31 min
Original Note:
Today's Communication/Plan
-
Discharge today if okay with cardiology
Assessment / Plan
Assessment / Plan
CVS: S1-S2 normal
Chest: CTA B/L
Abdomen: Soft, NT / Bowel sounds present
Extremities: No edema
Right Inguinal area with no hematoma
Denies any chest pain or shortness of breath
#NSTEMI - Aspirin, Plavix, Lipitor. Metoprolol, lisinopril
Cath 06/04/2023-stenting of ostial to proximal circumflex, patent LAD stent from March 2023, chronically occluded RCA
#CAD -admitted in March 2023 to our hospital for non-ST elevation [place], underwent successful stenting of mid LAD.
Percutaneous coronary intervention to the obtuse marginal in 2018
#History of TIA -left vertebral artery stenosis.
Continue aspirin, statin
#COPD without exacerbation
#Hyperlipidemia -continue atorvastatin.
#Essential hypertension -continue metoprolol, lisinopril, Norvasc
#DJD
#COPD
#Enlarged prostate with history of TURP
#Tobacco dependence-cigars smoking cessation
#Full code
D/W RN
D/W Cards
Anticipated Discharge: Today
Subjective/Interval History
-
Date of Service: June 05, 2023
Objective Data
-
Labs:
Laboratory Results
06/04/23 06/05/23
15:00 04:14
WBC 7.6
Hgb 13.4
Hct 39.7
Plt Count 230
APTT Cancelled
Sodium 134 L
Potassium 4.4
Chloride 106
Carbon Dioxide 23
BUN 16
Creatinine 1.1
Glucose 88
Calcium 8.8
Vital Signs:
Vital Signs
Temp Pulse Resp BP Pulse Ox
98.2 F 63 16 136/81 96
06/05/23 08:06 06/05/23 08:06 06/05/23 08:06 06/05/23 04:11 06/05/23 08:06
I&O
06/04/23 06/05/23 06/06/23
06:59 06:59 06:59
Output Total 400 / 400 1200 / 1200
Balance -400 / -400 -1200 / -1200
[2023-06-05] MEDS: NORVASC 5 MG PO (08:38)
[2023-06-05] MEDS: RANEXA EXTENDED RELEASE PO ×2 (08:38→08:40)
[2023-06-05] MEDS: ZESTRIL 20 MG PO (08:38)
--- NOTE | 2023-06-05 10:59 | W.PN.CARDCBS ---
Addendum entered and electronically signed by Aashish Burris MD 06/05/23 14:44:
I saw and examined the patient.
The RIVET BUCKER or PA's note was reviewed and I agree with the note.
Comment: General: Well developed, well nourished in NAD.
Stable cardiology status for discharge to home
Will try to add Ranexa but unclear if he will take it
Follow-up arranged
Discussed with patient
Discharge time greater than 30 minutes
Original Note:
Today's Communication / Plan
-
Cont all preadmission meds and will send new Rx for Ranexa which he may or may not take at home
Cardiology f/u arranged
Impression / Plan
-
PCP: Dr. Hein
Cardiology: Dr. SIMBA Nevarez
Impression:
Chest pain, NSTEMI with peak troponin of 0.6
CAD
NSTEMI with MACHINE STRIPER RCA and 75% mid Circ but turned down to CABG due to lack of conduits and had orbital atherectomy with Promus drug-eluting stent to mid LAD 07/2015
NSTEMI and 3.25 mm Xience to mid LAD 04/09/23
NSTEMI and 2.5 mm Aaron to ostial-prox Circ, patent mid LAD stent, MACHINE STRIPER RCA by cath 06/04/23
Cerebrovascular disease, history of TIA 2013
Left vertebral artery stenosis
Carotid ultrasound with <50% bilateral stenosis 2016
Degenerative disc disease
History of lower extremity del real
Hypertension
Hypercholesterolemia
Tobacco use
Echo 04/09/2023: Ejection fraction 55 to 60%
Plan:
-Patient's peak troponin was 0.595. Cath 06/04/23 showed a patent previously placed LAD stent from 04/09/23 and new ostial Circ disease that was stented with a 2.5 mm Aaron YUSRA.
-Patient was tolerating aspirin and Plavix prior to admission as treatment for his stent from 04/09/23 so this was continued. Hgb stable.
-Tele reviewed by me 06/05/23 and no VT.
-Outpatient doses of amlodipine 5 mg daily, Toprol XL 50 mg daily and lisinopril 20 mg daily continued.
-LDL 58. He had stopped his atorvastatin for a period of time between last [place] and PCI 04/09/23 and last office visit 05/26/23, but he has since resumed and has been taking all doses during this admission. Cont atorvastatin 80 mg daily.
-Patient declined Imdur due to possible interaction with nitrous oxide which he uses for ED and plan was to switch to Ranexa, but he does not want to take Ranexa more than once a day.
-Cardiology f/u arranged
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
Subjective
Date of Service: June 05, 2023
He feels well and wants to go home
Objective
Labs:
06/05/23 04:14
06/05/23 04:14
Labs
Hgb 13.4 g/dL (13.0-18.0) 06/05/23 04:14
Hct 39.7 % (39.0-52.0) 06/05/23 04:14
Plt Count 230 10^3/uL (130-400) 06/05/23 04:14
APTT Cancelled 06/04/23 15:00
Sodium 134 mmol/L (135-145) L 06/05/23 04:14
Potassium 4.4 mmol/L (3.5-5.1) 06/05/23 04:14
BUN 16 mg/dl (9-20) 06/05/23 04:14
Creatinine 1.1 mg/dL (0.7-1.3) 06/05/23 04:14
Glucose 88 mg/dl (70-99) 06/05/23 04:14
Troponins
06/02/23 06/03/23 06/03/23
19:26 03:03 09:49
Troponin I 0.242 H* 0.595 H* D 0.470 H*
06/03/23
10:15
Troponin I Cancelled
Vital Signs and I&O:
Vital Signs
Temp Pulse Resp BP Pulse Ox
98.2 F 74 16 134/69 96
06/05/23 08:06 06/05/23 08:38 06/05/23 08:06 06/05/23 08:38 06/05/23 08:06
Vital Signs
Temp Pulse Resp BP Pulse Ox
98.2 F 74 16 134/69 96
06/05/23 08:06 06/05/23 08:38 06/05/23 08:06 06/05/23 08:38 06/05/23 08:06
Intake & Output
06/03/23 06/04/23 06/05/23 06/06/23
06:59 06:59 06:59 06:59
Output Total 400 / 400 1200 / 1200
Balance -400 / -400 -1200 / -1200
Physical Exam
Physical Exam
General: NAD
HEENT: EOMI
Heart: Reg
Lungs: No audible wheeze
Extremities: No edema bilaterally.
Neuro: Grossly nonfocal
[2023-06-05 11:27] VITALS: BP 127/71
[2023-06-05 11:29] VITALS: BMI 21.2
--- NOTE | 2023-06-05 13:36 | W.DS.TRANS ---
Addendum entered and electronically signed by Carolyn Cuadra MD 06/05/23 17:00:
Dictation- [id number]
Original Note:
DC Summary - Customer Success Representative
-
Discharge Instructions:
Discharge Diagnosis/Procedures NSTEMI, s/p angioplasty and stent to Left
Circumflex artery, coronary artery disease, COPD
, high cholesterol, hypertension, enlarged
prostate , Hiatal Hernia
Diet 2 Gram Sodium,Restrict fluids to 64 oz
Driving Restrictions No driving for 24 hours
Other Services Cardiac Rehab,VN
Specialty Instructions Weigh Daily
Instructions:
Stand-Alone Forms: DC Instructions- Cath/EP Lab
Changes to Home Medications: Yes
Discharge Medications:
DC Medications w/original date entered in [facility]
aspirin 81 mg tablet,delayed release 81 mg PO QPM Blood Clot Prevention/Tx 04/06/23
clopidogrel 75 mg tablet 75 mg PO QPM Blood Clot Prevention/Tx 04/06/23
amlodipine 5 mg tablet 5 mg PO BID #60 tabs 04/10/23
metoprolol succinate 50 mg tablet,extended release 24 hr 50 mg PO QPM Heart Failure 05/07/23
lisinopril 20 mg tablet 20 mg PO DAILY Blood Pressure 06/02/23
atorvastatin 80 mg tablet 80 mg PO QPM High cholesterol #90 tabs 06/05/23
ranolazine 500 mg tablet,extended release,12 hr 500 mg PO BID Heart disease/condition #60 tabs 06/05/23
Home Medication Changes
new
ranolazine 500 mg tablet,extended release,12 hr 500 mg PO BID Heart disease/condition #60 tabs 06/05/23
Pending Results: No
--- NOTE | 2023-06-05 14:35 | CM ---
Reviewed chart. Met with Mr. Lau to review discharge plans. Reviewed [facility] with him. He has declined [facility] Services at this time. Prior to admission he resides alone in a two story home with two steps to enter. He has a full flight of
steps to get to bedroom/bathroom. He has a powder room on the first floor. Prior to admission he was independent with ambulation and adls. He does not have any DME in the home. He has a prescription plan and uses [facility]. Medical work-up in
progress. The discharge plan is to return home when medically stable.
== END 2023-06-05 14:49 | disposition home health service (06) | DRG 322 ==
LOC: IVU 22:38
PROVIDERS: Hospitalist; Internal Medicine Cardiovascular Disease; Physician Assistant; Registered Nurse; ADMITTING PHYSICIAN Hospitalist; ATTENDING PHYSICIAN Hospitalist; CONSULT PHYSICIAN Internal Medicine Cardiovascular Disease; EMERGENCY PHYSICIAN Emergency Medicine; FAMILY PHYSICIAN Internal Medicine
PROC: 4A023N7 Measurement of Cardiac Sampling and Pressure, Left Heart, Percutaneous Approach (ICD-10-PCS; 2023-06-04)
PROC: 027034Z Dilation of Coronary Artery, One Artery with Drug-eluting Intraluminal Device, Percutaneous Approach (ICD-10-PCS; 2023-06-04)
PROC: B2111ZZ Fluoroscopy of Multiple Coronary Arteries using Low Osmolar Contrast (ICD-10-PCS; 2023-06-04)
DX: I21.4 Non-ST elevation (NSTEMI) myocardial infarction (principal); I25.10 Atherosclerotic heart disease of native coronary artery without angina pectoris; J44.9 Chronic obstructive pulmonary disease, unspecified; E78.00 Pure hypercholesterolemia, unspecified; I50.9 Heart failure, unspecified; I11.0 Hypertensive heart disease with heart failure; N40.0 Benign prostatic hyperplasia without lower urinary tract symptoms; K44.9 Diaphragmatic hernia without obstruction or gangrene; F17.290 Nicotine dependence, other tobacco product, uncomplicated; I25.82 Chronic total occlusion of coronary artery; Z95.5 Presence of coronary angioplasty implant and graft; Z79.82 Long term (current) use of aspirin
CPT/HCPCS: 71046; 80048; 80053; 80061; 83036; 84484; 85025; 85027; 85347; 85730; 93005; 93454; 96365; 96366; 97162; 99291; 99406; C1725; C1760; C1769; C1874; C1894; C9600; Q9967

== ENCOUNTER → 2023-07-27 16:21 | Outpatient (REF) | payer MEDICARE, OTHER, SELFPAY | LOC: CLAB 16:21 | PROVIDERS: ATTENDING PHYSICIAN Specialist | DX: N39.0 Urinary tract infection, site not specified (principal) | CPT/HCPCS: 87086 ==

== ENCOUNTER 2023-08-25 11:45 | Emergency (ER) | payer MEDICARE, OTHER, SELFPAY ==
[2023-08-25 11:54] VITALS: BP 124/65
[2023-08-25 13:29] VITALS: BMI 27.2
[2023-08-25 13:44] VITALS: BP 166/74
[2023-08-25 14:00] VITALS: BP 156/76
[2023-08-25 14:34] VITALS: BP 156/76
--- NOTE | 2023-08-25 14:42 | ED.GENMED ---
History of Present Illness
General
Chief Complaint: Head Injury
Source: patient
Exam Limitations: none
Time Seen by Provider: 08/25/23 13:18
Nursing documentation reviewed up to this point in time: agreed with
Travel History
Have you had any contact with someone who has COVID-19?: No
Do you have any symptoms of coronavirus? Fever > 100 degrees, chills, cough, shortness of breath, sore throat, loss of taste or smell, muscle aches, or headache?: No
History of Present Illness
History of Present Illness:
Patient is an 83-year-old male with past medical history of previous CVA, [place], CAD with multiple cardiac stents, on Plavix, COPD, who lives alone who presents to the emergency department for evaluation following a fall that occurred around 8 PM last
night. Patient reports that he was walking into his home and accidentally tripped over a tree branch. Patient reports that he did strike the right side of his head. Patient denies does not believe that he experienced a loss of consciousness.
Patient thought that he was fine and went to bed but woke up this morning and noted severe pain over his left shoulder, prompting him to come to the emergency department. Patient denies any headache, dizziness, vision changes, neck pain, back pain,
chest pain, shortness of breath, abdominal pain, nausea, vomiting. Patient denies any numbness, weakness, tingling of his extremities. Patient reports he has been having some left shoulder pain for the past few weeks. He reports he was going to
see an orthopedic surgeon but ultimately decided not to as he was able to lift the arm without difficulty. Patient reports that since the fall last night, he has had significant difficulty lifting up his left arm due to pain and therefore decided
to come in. Patient denies the pain radiates anywhere else. Patient denies any numbness, weakness, tingling of the hand or fingers.
Past History
Past History
ED Past Medical History: CAD, COPD, CVA, GERD, HTN, Hypercholesterolemia, [place] and Other
ED Past Surgical History: Cardiac (Stent) and Other (Skin grafting many years ago for severe del real. Kidney stone removal)
Patient has exhibited threatening behavior?: No
PSI?: No
Social History
Tobacco: Other (Cigar)
Alcohol: Occasional
Drug: None
Personal: Single
Living: alone
Employment: Retired
Family History
Family History: Other (No significant)
Phy Exam
General Physical Exam
General Presentation: well appearing and no apparent distress
General Skin: warm, dry and other (Dried blood noted over the patient's right forehead, blood was cleansed with normal saline, abrasions present, however, no laceration appreciated)
General Habitus: normal
General Mental: alert
General Hydration: appears well hydrated
ENT Exam
ENT Exam: EOMI, pharynx normal, neck supple and normocephalic
Eye Exam
Eye Exam: PERRL, cornea clear and conjunctiva normal
Cardiovascular Exam
Cardiovascular Exam: regular rate/rhythm, no edema, no murmur and normal peripheral pulses
Pulmonary Exam
Pulmonary Exam: lungs clear, no respiratory distress, no rales, no crackles, no rhonchi, no stridor, no wheezing and no cough
Gastrointestinal Exam
Gastrointestinal Exam: normal bowel sounds, non tender, soft, no organomegaly, no pulsatile mass and non distended
Neurological Exam
Neurological Exam: alert, oriented x3, no motor deficits and speech normal
Musculoskeletal Exam
Musculoskeletal Exam: other (No swelling, erythema, ecchymosis to the left upper extremity, there is mild tenderness to palpation of the left glenohumeral joint, patient has significant difficulty with forward flexion of the left shoulder secondary
to pain, patient has normal veneer sawyer strength bilaterally, 2+ radial pulses b/l)
Skin Exam
Skin Exam: normal color, warm/dry, no rash and no petechia
Psychiatric Exam
Psychiatric Exam: normal mood/affect
Course
Orders/Labs/Results
Orders:
Orders
08/25/23 12:01
CR Humerus - Left Min 2 Views* Urgent
Comment:
Reason For Exam: pain/decreased ROM
08/25/23 12:08
CT Head W/o Iv Contrast Urgent
Comment: On Plavix
Reason For Exam: s/p fall hitting head
Vital Signs
Initial and Last Documented VS:
Initial Vital Signs
Temp Pulse Resp BP Pulse Ox
98.5 F 86 18 124/65 98
08/25/23 11:54 08/25/23 11:54 08/25/23 11:54 08/25/23 11:54 08/25/23 11:54
Last Documented Vital Signs
Temp Pulse Resp BP Pulse Ox
98.5 F 68 16 156/76 94
08/25/23 11:54 08/25/23 14:34 08/25/23 14:34 08/25/23 14:34 08/25/23 14:34
*Critical Care Note
Total Time (30-74mins, 75-104mins- exclusive of procedures): Not Applicable
Update Note
Update Note:
Patient is an 83-year-old male with past medical history as noted, currently on Plavix, who presents to the emergency department for evaluation following a mechanical fall that occurred at 8 PM last night. Patient reports that he tripped over a
tree branch, he denies any preceding symptoms. On arrival, patient's vital signs are stable, he is afebrile. On exam, patient is well-appearing and in no acute distress, he does have abrasions over his right forehead with some dried blood, he also
has decreased range of motion of the left shoulder secondary to pain but is neurovascularly intact. Radiographs of the left humerus demonstrate no acute fracture or dislocation however there is evidence of a complete tear of the left rotator cuff
which is the most likely etiology of the patient's symptoms. Will recommend supportive care and close outpatient orthopedic follow-up for definitive diagnosis and treatment. In regards to the patient's head, CT of the head demonstrates no acute
abnormalities. Previous infarct noted however patient does have a history of previous stroke. Patient reports that his tetanus is up-to-date. Wound was cleansed with normal saline and dressed with antibiotic ointment and a dressing. Patient
offered to get set up with a visiting nurse which he declined stating that he does not need help at home. Patient is able to ambulate with a steady gait and is safe for discharge to home with wound care instructions along with strict return
precautions. He expressed understanding of the plan and agreed.
ED Attending Note
-
Portions of this chart may have been created with voice recognition software.� Occasional wrong word or��sound alike� substitutions may have occurred due to the inherent limitations of voice recognition software.
Discharge Plan
Departure
Patient Disposition: Home (Routine Discharge)
Date of Disposition: 08/25/23
Time of Disposition: 15:45
Patient with high blood pressure during this ER visit?: Yes
Condition: Good
Covid-19: Not Applicable
Discharge Problem:
Closed head injury, Abrasion of scalp, Complete rotator cuff tear of left shoulder, Acute pain of left shoulder
Instructions: Head injury in adults, Rotator Cuff Injury (DC), Taking care of cuts, scrapes, and puncture wounds
Prescriptions:
No Action
clopidogrel 75 mg Tablet
75 mg PO QPM
aspirin 81 mg Tablet,Delayed Release (Dr/Ec)
81 mg PO QPM
amlodipine 5 mg Tablet
5 mg PO BID Qty: 60 5RF
metoprolol succinate 50 MG tablet extended release 24 hr
50 mg PO QPM
lisinopril 20 mg tablet
20 mg PO DAILY
ranolazine 500 mg Tablet Extended Release 12 Hr
500 mg PO BID Qty: 60 11RF
atorvastatin 80 mg Tablet
80 mg PO QPM Qty: 90 5RF
Referrals:
Min Wallace MD [Active] - Follow up in 2-3 days
Irwin Hein MD [Family Provider] - Follow up in 2-3 days
Activity Restrictions/Additional Instructions:
You were seen in the emergency department for evaluation following a fall. You had a CT scan of your head which shows no dangerous abnormalities. You sustained wounds to your right forehead, please keep these clean by washing gently with soap and
water, pat dry, apply a thin layer of antibiotic ointment. You may keep covered for the next few days until they start to close. If you develop worsening headache, dizziness, vision changes, or increased pain, swelling, redness, drainage of pus
from the wound, then you should return to the emergency department immediately. Otherwise please follow-up with your primary care provider for a wound check. In addition, you noted left shoulder pain. X-rays are suggestive of a complete rotator
cuff tear. It is important to follow-up with orthopedics for further evaluation and treatment. In the meantime you may take Tylenol 650 mg every 4 hours not to exceed 3000 mg in a 24-hour period. Please return to the emergency department if you
develop numbness, weakness, tingling of the left arm, hand, fingers, or for any other worsening or concerning symptoms.
Interventions
Interventions:
*Risk Screen - Suicide Last Done: 08/25/23 11:54
*General Assessment Last Done: 08/25/23 13:29
*Neglect/Abuse Screening Last Done: 08/25/23 11:54
ED- Fall Risk Assessment Last Done: 08/25/23 13:29
*ED COVID-19 Vaccine History Last Done: 08/25/23 11:54
*Nursing Disposition Last Done: 08/25/23 16:19
ED-Musculoskeletal Assessment Last Done: 08/25/23 13:29
ED- Neurological Assessment Last Done: 08/25/23 13:29
ED-Skin Assessment Last Done: 08/25/23 13:29
Discharge Date and Time
Discharge Date/Time: 08/25/23 16:19
Print Language: CZECH
== END 2023-08-25 16:19 | disposition home or self-care (01) ==
LOC: EMR 11:45
PROVIDERS: EMERGENCY PHYSICIAN Emergency Medicine; FAMILY PHYSICIAN Internal Medicine
DX: S09.90XA Unspecified injury of head, initial encounter (principal); S00.01XA Abrasion of scalp, initial encounter; S46.012A Strain of muscle(s) and tendon(s) of the rotator cuff of left shoulder, initial encounter; W19.XXXA Unspecified fall, initial encounter; I10 Essential (primary) hypertension; F17.290 Nicotine dependence, other tobacco product, uncomplicated; M25.512 Pain in left shoulder; Z86.73 Personal history of transient ischemic attack (TIA), and cerebral infarction without residual deficits; I25.10 Atherosclerotic heart disease of native coronary artery without angina pectoris; I25.2 Old myocardial infarction; Z79.02 Long term (current) use of antithrombotics/antiplatelets
CPT/HCPCS: 99284; 70450; 73060

== ENCOUNTER 2023-08-31 21:46 | Observation (INO) | payer MEDICARE, OTHER, SELFPAY ==
[2023-08-31 20:00] VITALS: BP 215/121
[2023-08-31 20:20] LABS: % Basophils 0.8 % (0-2); % Eosinophils 1.6 % (0-6); % Immature Granulocytes 0.3 % (0-0.5); % Lymphocytes 20.8 % (20.5-51.1); % Monocytes 8.4 % (1.7-9.3); % Neutrophils 68.1 % (42.2-75.2); Absolute Basophils 0.1 10^3/uL (0-0.2); Absolute Eosinophils 0.1 10^3/uL (0-0.7); Absolute Lymphocytes 1.3 10^3/uL (1.2-3.4); Absolute Monocytes 0.5 10^3/uL (0.1-0.6); Absolute Neutrophils 4.2 10^3/uL (1.4-6.5); Hematocrit 38.6 % (39.0-52.0); Hemoglobin 13.4 g/dL (13.0-18.0); Mean Corp Hgb Conc. 34.7 g/dL (33.0-37.0); Mean Corpuscular Hgb 29.3 pg (27.0-31.0); Mean Corpuscular Volume 84.5 fL (80.0-94.0); Nucleated Red Blood Cells % 0 % (-); Platelet Count 236 10^3/uL (130-400); Red Blood Cell Count 4.57 10^6/uL (4.70-6.10); Red Cell Dist. Width 13.9 % (11.5-14.5); White Blood Cell Count 6.2 10^3/uL (4.8-10.8)
[2023-08-31 20:25] VITALS: BP 176/83
[2023-08-31 20:26] VITALS: BMI 24.2
[2023-08-31 20:34] LABS: ALT (SGPT) 16 U/L (0-50); APTT 24.5 Sec (23.4-35.0); AST (SGOT) 26 U/L (17-59); Albumin 4.4 g/dl (3.5-5.0); Alkaline Phosphatase 73 U/L (38-126); Blood Urea Nitrogen 16 mg/dl (9-20); Calcium 9.2 mg/dl (8.4-10.2); Carbon Dioxide 26 mmol/L (22-30); Chloride 104 mmol/L (98-107); Estimated Creatinine Clearance 53 ml/min; Glucose 128 mg/dl (70-99); Potassium 4.4 mmol/L (3.5-5.1); Sodium 139 mmol/L (135-145); Total Bilirubin 0.5 mg/dl (0.2-1.3); Total Protein 7.2 g/dl (6.3-8.2); eGFR > 60.00
[2023-08-31] MEDS: NITROSTAT (SUBLINGUAL) 0.400000000000000022 MG SL (20:35)
[2023-08-31] MEDS: LOW STRENGTH ASPIRIN 324 MG PO (20:35)
--- NOTE | 2023-08-31 20:35 | ED.GENMED ---
History of Present Illness
General
Chief Complaint: Chest Pain
Source: patient
Exam Limitations: none
Time Seen by Provider: 08/31/23 20:29
Travel History
Have you had any contact with someone who has COVID-19?: No
Do you have any symptoms of coronavirus? Fever > 100 degrees, chills, cough, shortness of breath, sore throat, loss of taste or smell, muscle aches, or headache?: No
History of Present Illness
History of Present Illness:
See MDM
Past History
Past History
ED Past Medical History: CAD, COPD, CVA, GERD, HTN, Hypercholesterolemia, [place] and Other
ED Past Surgical History: Cardiac (Stent) and Other (Skin grafting many years ago for severe del real. Kidney stone removal)
Patient has exhibited threatening behavior?: No
PSI?: No
Social History
Tobacco: Other (Cigar)
Alcohol: Occasional
Drug: None
Personal: Single
Living: alone
Employment: Retired
Family History
Family History: Other (No significant)
Phy Exam
Physical Exam
Physical Exam:
See MDM
Scores
Heart Score for Chest Pain Patients
STEMI patient?: No
History: Highly Suspicious
ECG: Nonspecific Repolarization
Age: >/= 65 years
Risk Factors: >/= 3 Risk Factors or History of CAD
Troponin: >1 - <3 x Normal Limit
Heart Score for Chest Pain Patients: 8
Heart Score Risk: 72.7 % MACE over next 6 weeks
Course
Orders/Labs/Results
Orders:
Orders
08/31/23 19:59
ECG [Electrocardiogram (*1)] Urgent
Reason for Study: Chest Pain
EKG- Treatment ONCE
08/31/23 20:09
BNP [NT-proBNP] Urgent
Complete Blood Count/With Diff Urgent
Comprehensive Metabolic Panel Urgent
PTT Urgent
Troponin I Urgent
08/31/23 20:32
Aspirin Chewable [Low Strength Aspirin] 324 mg PO NOW STA
Nitroglycerin Sublingual [Nitrostat (Sublingual)] 0.4 mg SL [id number] PRN
08/31/23 20:33
CR Chest - 2 Views Urgent
Comment:
Reason For Exam: Chest pain
08/31/23 21:29
Admit/Transfer Patient As Directed
Co-Sign Provider:
Level of Care: Observation services
Assign to:: Telemetry
Physician / Group: kacie
Diagnosis: chest pain
Reason for Telemetry: Arrhythmia
Date to Stop Telemetry: 09/03/23
Time to Stop Telemetry: 11:00
08/31/23 21:30
Code Status As Directed
Resuscitation Status: Do not resuscitate
Reached after discussion with pt or family/Healthcare POA: Yes
DNR Bracelet Application ONCE
08/31/23 22:00
Flush (0.9% Sodium Chloride) [Flush (Nss)] See Dose Instructions IV PER PROTOCOL
09/03/23 11:00
DC Protocol for Telemetry ONCE
Abnormal Lab Results
08/31/23
20:09
RBC 4.57 L 10^6/uL
(4.70-6.10)
Hct 38.6 L %
(39.0-52.0)
Glucose 128 H mg/dl
(70-99)
08/31/23 20:09
08/31/23 20:09
Vital Signs
Initial and Last Documented VS:
Initial Vital Signs
Temp Pulse Resp BP Pulse Ox
99.6 F 94 20 215/121 98
08/31/23 20:00 08/31/23 20:00 08/31/23 20:00 08/31/23 20:00 08/31/23 20:00
Last Documented Vital Signs
Temp Pulse Resp BP Pulse Ox
99.6 F 97 17 176/83 98
08/31/23 20:00 08/31/23 21:00 08/31/23 21:00 08/31/23 20:25 08/31/23 21:00
MDM/Problems Addressed
Differential Diagnosis Includes:
HPI and MDM Narrative:
83-year-old male presenting with crushing chest pain. Patient states he noticed it approximately 1 hour ago similar to his prior episodes where he required stents. He states he is short of breath when he exerts himself. Patient takes his
medicines at night and has not taken any nitroglycerin or aspirin. Patient states he has a history of 7 stents. Given his history, will give aspirin and nitroglycerin. Will obtain troponin and ultimately admit.
Physical exam
General: Uncomfortable, diaphoretic
HEENT: protecting airway
Neck: appears supple
CV: No evidence of cyanosis. Regular rate and rhythm
Resp: No accessory muscle use
Abd: Non-distended
Extremities: No deformities
Neuro: alert
Psych: Normal affect
Skin: Intact
Problems Addressed including Acute and Chronic Conditions affecting care:
1. Unstable angina
Acuity: acute
Prognosis: unstable
Details: Given his crushing chest pain similar to prior episodes, will treat as unstable angina given that it is at rest. Patient given aspirin and nitro
Updates
9 PM after 1 nitro, patient states he is feeling better
Troponin high normal. However its only been an hour since symptoms. Symptoms improving with nitroglycerin. Given that he is high risk with similar presentation, will admit for troponin trending
Differential Diagnosis (but not limited to): Unstable angina, NSTEMI
Testing considered: D-dimer
Drug therapy (if applicable): OTC meds, please see d/c instruction regarding Rx drugs
Amount and/or Complexity of Data Reviewed
Clinical info obtained from: Patient
External data reviewed: N/A
Labs I independently reviewed (but not limited to): Troponin
Radiology: X-ray independently reviewed: Chest x-ray clear
Pulse Ox: not hypoxic
EKG independently reviewed: sinus rhythm, left axis, no STEMI
Geochemistry Teacher: Sinus rhythm
Critical Care: N/A
Risk of Complication:
Social Determinants of health: Good social support
Discussed with other providers: N/A
Escalation of Care includes Admit/Obs: Given high risk chest pain, will admit
Occasional wrong word or 'sound a like' substitutions may have occurred due to the inherent limitations of voice recognition software. Read the chart carefully and recognize, using context, where substitutions have occurred.
*Critical Care Note
Total Time (30-74mins, 75-104mins- exclusive of procedures): Not Applicable
ED Attending Note
-
Portions of this chart may have been created with voice recognition software.� Occasional wrong word or��sound alike� substitutions may have occurred due to the inherent limitations of voice recognition software.
Discharge Plan
Departure
Patient Disposition: Admit
Date of Disposition: 08/31/23
Time of Disposition: 21:15
Admit to: Telemetry
Presentation/result/management discussed w/ accepting MD/DO: Hospitalist
Discharge Problem:
CAD (coronary artery disease)
Interventions
Interventions:
*Risk Screen - Suicide Last Done: 08/31/23 20:00
*General Assessment Last Done: 08/31/23 20:00
*Neglect/Abuse Screening Last Done: 08/31/23 20:00
ED- Fall Risk Assessment Last Done: 08/31/23 20:26
*ED COVID-19 Vaccine History Last Done: 08/31/23 20:17
ED- Cardiac Assessment Last Done: 08/31/23 20:26
[2023-08-31 20:45] LABS: NT-proBNP 1080 pg/ml; Troponin I 0.034 ng/ml
--- NOTE | 2023-08-31 21:32 | HPS.HSE ---
Family Physician
-
Family Physician: Irwin Hein
Chief Complaint
-
chest pain
History of Present Illness
83-year-old male past medical history of prior NSTEMI post left circumflex stent in May, LAD stent in March, obtuse marginal stenting 2019 and 7 stents total, CAD, COPD, hypercholesterolemia, TIA, hypertension, BPH status post TURP, hiatal
hernia presenting for crushing chest pressure that started 1 hour prior to arrival. Pain radiates to his left arm. He denies nausea or vomiting. He denies shortness of breath. He did have sweating.
Patient smokes a few cigars a day. He denies alcohol. He denies any drugs.
Medical History
Past Medical History
Past Medical History: Reports Other (prior NSTEMI post left circumflex stent in May, LAD stent in March, obtuse marginal stenting 2019 and 7 stents total, CAD, COPD, hypercholesterolemia, TIA, hypertension, BPH status post TURP, hiatal hernia)
Past Surgical History: Reports None
Social History
Tobacco: Smoker
Alcohol: None
Drug: None
Family History
Family History: Not pertinent
Allergies / Home Medications
Allergies reflects when Allergies were last updated in [facility].
Home Medications with original date entered in [facility]
Allergy/Medication List:
Allergies
Allergy/AdvReac Type Severity Reaction Status Date / Time
No Known Allergies Allergy Verified 08/31/23 19:59
Home Medications
aspirin 81 mg tablet,delayed release 81 mg PO QPM Blood Clot Prevention/Tx 04/06/23
clopidogrel 75 mg tablet 75 mg PO QPM Blood Clot Prevention/Tx 04/06/23
metoprolol succinate 50 mg tablet,extended release 24 hr 50 mg PO QPM Heart Failure 05/07/23
lisinopril 20 mg tablet 20 mg PO QPM Blood Pressure 06/02/23
atorvastatin 80 mg tablet 80 mg PO QPM High cholesterol #90 tabs 06/05/23
amlodipine 5 mg tablet 5 mg PO QPM 08/31/23
Review of Systems
-
History Source: Patient
A 12 point ROS was completed and negative except as noted: Yes
Constitutional: Reports No Symptoms
EENT: Reports No Symptoms
Respiratory: Reports See HPI
Cardiac: Reports See HPI
Abdomen/GI: Reports No Symptoms
: Reports No Symptoms
Musculoskeletal: Reports No Symptoms
Skin: Reports No Symptoms
Neurological: Reports No Symptoms
Endocrine: Reports No Symptoms
Hematologic/Lymphatic: Reports No Symptoms
Psych: Reports No Symptoms
Physical Exam
Vital Signs
Vital Signs
Temp Pulse Resp BP Pulse Ox
99.6 F 97 17 176/83 98
08/31/23 20:00 08/31/23 21:00 08/31/23 21:00 08/31/23 20:25 08/31/23 21:00
Physical Exam
General: Well Developed, Well Nourished and No Apparent Distress
HEENT: NormoCephalic, Moist mucous membranes and Atraumatic
Respiratory: Clear
Cardiac: S1/S2 and Regular Rhythm; No Murmur or Rub
GI: Soft, Non Tender, Non Distended and Normal Bowel Sounds; No Organomegaly
Rectal: Deferred by Provider
Musculoskeletal: No Clubbing, No Cyanosis and No Edema
Skin: No Rash
Neuro: Nonfocal/grossly intact
Laboratory Results
-
08/31/23 20:09
08/31/23 20:09
Laboratory Results
APTT 24.5 Sec (23.4-35.0) 08/31/23 20:09
Total Bilirubin 0.5 mg/dl (0.2-1.3) 08/31/23 20:09
AST 26 U/L (17-59) 08/31/23 20:09
ALT 16 U/L (0-50) 08/31/23 20:09
Alkaline Phosphatase 73 U/L (38-126) 08/31/23 20:09
Troponin I 0.034 ng/ml 08/31/23 20:09
Data Reviewed
-
Lab Data: Labs Reviewed by me
Old Records: Reviewed
Impression/Plan
-
IMPRESSION:
PLAN:
# Possible NSTEMI/unstable angina
# History of CAD, with history of 7 stents
-Currently without chest pain
-EKG shows ST depressions in leads V2
-Troponin 0.034
-Trend troponins
-Aspirin given
-Continue Plavix
-As needed nitroglycerin
-Check chest x-ray
-Continue statin
-N.p.o. past midnight in case catheterization necessary
-Cardiology consulted
# Hypertensive urgency
-Patient did not take medications today
-Continue amlodipine, lisinopril
-Continue metoprolol
COPD
Hypercholesterolemia
History of TIA
BPH status post TURP
Hiatal hernia
Active smoker
DNR/DNI
DVT prophylaxis�heparin
Regular diet, n.p.o. past midnight
[2023-08-31 22:00] VITALS: BP 139/71
--- NOTE | 2023-08-31 22:21 | PTCARENOTE ---
Pt received from ED to 414-2. Pt oriented to room and call tovar.
[2023-08-31 22:25] VITALS: BP 157/79; BMI 21.6
[2023-08-31 23:17] VITALS: BP 150/78
[2023-09-01] VITALS (9 sets, daily range): BP systolic 136–186; BP diastolic 65–95
[2023-09-01 02:50] LABS: Troponin I 0.697 ng/ml
[2023-09-01] MEDS: NORVASC 5 MG PO ×2 (03:37→19:50)
[2023-09-01 08:23] LABS: % Basophils 1.1 % (0-2); % Immature Granulocytes 0.4 % (0-0.5); % Lymphocytes 22.6 % (20.5-51.1); % Monocytes 9.8 % (1.7-9.3); % Neutrophils 64.1 % (42.2-75.2); Absolute Basophils 0.1 10^3/uL (0-0.2); Absolute Eosinophils 0.1 10^3/uL (0-0.7); Absolute Lymphocytes 1.3 10^3/uL (1.2-3.4); Absolute Monocytes 0.6 10^3/uL (0.1-0.6); Absolute Neutrophils 3.6 10^3/uL (1.4-6.5); Hematocrit 36.2 % (39.0-52.0); Hemoglobin 12.2 g/dL (13.0-18.0); Mean Corp Hgb Conc. 33.7 g/dL (33.0-37.0); Mean Corpuscular Volume 86.2 fL (80.0-94.0); Mean Platelet Volume 10.2 fL (7.4-10.4); Nucleated Red Blood Cells % 0 % (-); Platelet Count 211 10^3/uL (130-400); Red Cell Dist. Width 13.9 % (11.5-14.5); White Blood Cell Count 5.6 10^3/uL (4.8-10.8)
[2023-09-01 08:59] LABS: ALT (SGPT) 15 U/L (0-50); AST (SGOT) 31 U/L (17-59); Albumin 3.8 g/dl (3.5-5.0); Alkaline Phosphatase 61 U/L (38-126); Blood Urea Nitrogen 18 mg/dl (9-20); Carbon Dioxide 27 mmol/L (22-30); Chloride 105 mmol/L (98-107); Estimated Creatinine Clearance 56 ml/min; Glucose 86 mg/dl (70-99); Potassium 4.6 mmol/L (3.5-5.1); Sodium 137 mmol/L (135-145); Total Bilirubin 0.7 mg/dl (0.2-1.3); Total Protein 6.4 g/dl (6.3-8.2); eGFR > 60.00
--- NOTE | 2023-09-01 09:07 | CON.CAR ---
Consultation
Consultation Request
Date/Time Consultation Requested: 09/01/2023 at 8 AM
Date/Time Consultation Performed: 09/01/2023 at 10 AM
Requesting Provider: Dr. Avalos
Performing Provider: Wilfred Nevarez MD
Reason for Consultation: CAD/chest pain
Medical History
-
Chief Complaint: Chest discomfort
History of Present Illness:
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 Last seen in our office in May and doing well at that time. He continues to smoke and will
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 He takes his medications at around 6 PM. He took his medications on . On [place]. He returned home just prior to 6 PM and symptoms started right around that time, before he took his medications.
Past Medical History
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
Hypercholesterolemia and Other (Degenerative disc disease, history of extensive del real as a child)
Past Surgical History: Urological (Renal stone extraction) and Other (Extensive del real as a child)
Social History
Tobacco: Smoker
Drug: None
Personal: Single
Living: Alone
Employment: Retired
Family History
Family History: Reviewed & Not Pertinent
Allergies / Home Medications
Allergy/AdvReac Type Severity Reaction Status Date / Time
No Known Allergies Allergy Verified 08/31/23 19:59
�Medication �Instructions �Recorded �Confirmed �Type
aspirin 81 mg tablet,delayed 81 mg PO QPM Blood Clot 04/06/23 08/31/23 History
release Prevention/Tx
clopidogrel 75 mg tablet 75 mg PO QPM Blood Clot 04/06/23 08/31/23 History
Prevention/Tx
metoprolol succinate 50 mg 50 mg PO QPM Heart Failure 05/07/23 08/31/23 History
tablet,extended release 24 hr
lisinopril 20 mg tablet 20 mg PO QPM Blood Pressure 06/02/23 08/31/23 History
atorvastatin 80 mg tablet 80 mg PO QPM High cholesterol #90 06/05/23 08/31/23 Rx
tabs
amlodipine 5 mg tablet 5 mg PO QPM Blood Pressure 08/31/23 08/31/23 History
Review of Systems
-
All other systems: Negative unless noted
Physical Exam
Vital Signs
Temp Pulse Resp BP Pulse Ox
36.9 C 69 16 186/85 98
09/01/23 07:25 09/01/23 07:25 09/01/23 07:25 09/01/23 07:25 09/01/23 07:25
Lab Results
09/01/23 07:38
09/01/23 07:38
Troponin I 1.290 ng/ml H* D 09/01/23 07:38
Kaf-B-Vgutwoapcbn Pept 1080 pg/ml 08/31/23 20:09
Physical Exam
General: No Apparent Distress
HEENT: Normocephalic
Respiratory: Clear
Cardiac: S1/S2, Regular Rhythm and Other (No obvious murmur)
GI: Non Distended
Musculoskeletal: No Edema
Skin: Other (Extensive scars from del real)
Neuro: AO x 3
Psych: Calm
Impression / Plan
-
PCP: Dr. Hein
Cardiology: Dr. Burris
Impression:
Chest pain, suspect related to medication regimen
CAD
NSTEMI with THEORETICAL PHYSICS TEACHER RCA and 75% mid Circ but turned down to CABG due to lack of conduits and had orbital atherectomy with Promus drug-eluting stent to mid LAD 07/2015
NSTEMI and 3.25 mm Xience to mid LAD 04/09/23
NSTEMI and 2.5 mm Aaron to ostial-prox Circ, patent mid LAD stent, THEORETICAL PHYSICS TEACHER RCA by cath 06/04/23Cerebrovascular disease, history of TIA 2013
Left vertebral artery stenosis
Carotid ultrasound with <50% bilateral stenosis 2016Degenerative disc disease
History of lower extremity del real
Hypertension
Hypercholesterolemia
Tobacco use
Noncompliance
Echo 04/09/2023: Ejection fraction 55 to 60%
Plan:
He presents with chest discomfort and a non-ST segment elevation WA, I suspect this is related to his medication regimen. He takes his pills at 6 PM, has a known chronic total occlusion of the RCA, and I suspect hypertension and possibly relative
tachycardia related to the fact that he was 24 hours without medications.
An alternative explanation would be that he has a technical problem with his recent LAD and circumflex stents. I think this is less likely.
He is reluctant to take nitrates and Ranexa.
Will switch amlodipine and metoprolol to twice daily dosing.
He wants to leave today but I told him he should not.
We will reassess in the morning as to whether or not he should go back to the [facility]. If he is doing well I would be willing to discharge him with outpatient follow-up.
Data Reviewed
-
EKG: Tracing Personally Visualized and interpreted (Normal sinus rhythm, nonspecific ST and T wave changes, heart rate 95, left atrial enlargement, repeat ECG pending)
Radiology: Image Personally Visualized and interpreted (Hiatal hernia, NAD)
Labs: Labs Reviewed by me (Hemoglobin 12.2 platelets 211, BUN and creatinine 18 and 0.9, potassium 4.6, proBNP 1080, troponin 1.29)
Old Records: Reviewed
--- NOTE | 2023-09-01 11:25 | CM ---
Patient seen bedside.
IA completed.
Patient lives alone in 2 story home.
Patient independent prior to admission, drives.
Patient has no assistive devices, has not had VN.
LIU form reviewed and signed.
PCP; DR Steve Hein
Pharmacy: [facility]
Plan: home no needs anticipated, patient will drive himself home.
[2023-09-01] MEDS: TOPROL XL 25 MG PO (11:28)
--- NOTE | 2023-09-01 12:34 | W.PN.HOSP.TC ---
Today's Communication/Plan
-
follow troponins, symptoms
apprec cards
Assessment / Plan
Assessment / Plan
pt is an 83 year old male
Chest pain --NSTEMI--(History of CAD, with history of 7 stents--most recent 05/2023)--EKG shows ST depressions in leads V2--troponin 0.697, 1.290....apprec cards--cont asa/plavix--cont amlodipine and metoprolol BID per cards--As needed
nitroglycerin-Continue statin
Hypertensive urgency--likely cause of chest pain, NSTEMI--Patient did not take medications on day of admission--Continue amlodipine, lisinopril, metoprolol
COPD--no exacerbation--still smokes
Hypercholesterolemia--cont statin
History of TIA
BPH status post TURP
Hiatal hernia
code status --DNR/DNI
DVT prophylaxis�heparin
Anticipated Discharge: 24 - 48 hours
Subjective/Interval History
-
Date of Service: September 01, 2023
pt chest pain free currently
Objective Data
-
Labs:
Laboratory Results
09/01/23
07:38
WBC 5.6
Hgb 12.2 L
Hct 36.2 L
Plt Count 211
Sodium 137
Potassium 4.6
Chloride 105
Carbon Dioxide 27
BUN 18
Creatinine 0.9
Glucose 86
Calcium 9.0
Total Bilirubin 0.7
AST 31
ALT 15
Alkaline Phosphatase 61
Vital Signs:
max temp for 24 hours
08/31/23
20:00
Temp 99.6 F
Vital Signs
Temp Pulse Resp BP Pulse Ox
98.7 F 62 16 182/89 99
09/01/23 11:55 09/01/23 11:55 09/01/23 11:55 09/01/23 11:55 09/01/23 11:55
I&O
08/31/23 09/01/23 09/02/23
06:59 06:59 06:59
Output Total 300 / 300
Balance -300 / -300
Review of Systems
-
All other systems: Reviewed and negative
Physical Exam
-
General: Well Developed, Well Nourished and No Apparent Distress
HEENT: Normocephalic and Atraumatic
Respiratory: Clear to Auscultation; Negative Wheezes, Rhonchi or Crackles
Cardiac: Regular Rhythm and S1/S2; Negative Murmur
GI: Soft, Nontender, Nondistended and Normal Bowel Sounds
Musculoskeletal: No Clubbing, No Cyanosis and No Edema
Skin: Warm
Neuro: Awake
[2023-09-01] MEDS: APRESOLINE 5 MG IV (15:46)
[2023-09-01] MEDS: ASPIR LOW (ENTERIC COATED) 81 MG PO (18:15)
[2023-09-01] MEDS: TOPROL XL 50 MG PO (18:15)
[2023-09-01] MEDS: PLAVIX 75 MG PO (18:15)
[2023-09-01] MEDS: ZESTRIL 20 MG PO (18:15)
[2023-09-01] MEDS: LIPITOR 80 MG PO (18:15)
[2023-09-01 21:09] LABS: Troponin I 0.795 ng/ml
[2023-09-02 03:00] VITALS: BP 161/82
[2023-09-02] MEDS: APRESOLINE 5 MG IV (03:41)
[2023-09-02 07:00] VITALS: BP 145/77
[2023-09-02 07:24] LABS: Hematocrit 39.1 % (39.0-52.0); Hemoglobin 13.1 g/dL (13.0-18.0); Mean Corp Hgb Conc. 33.5 g/dL (33.0-37.0); Mean Corpuscular Hgb 29.2 pg (27.0-31.0); Mean Corpuscular Volume 87.3 fL (80.0-94.0); Mean Platelet Volume 10.5 fL (7.4-10.4); Platelet Count 212 10^3/uL (130-400); Red Blood Cell Count 4.48 10^6/uL (4.70-6.10); Red Cell Dist. Width 13.8 % (11.5-14.5); White Blood Cell Count 6.5 10^3/uL (4.8-10.8)
[2023-09-02 07:43] LABS: Blood Urea Nitrogen 19 mg/dl (9-20); Calcium 8.7 mg/dl (8.4-10.2); Carbon Dioxide 27 mmol/L (22-30); Chloride 105 mmol/L (98-107); Estimated Creatinine Clearance 63 ml/min; Glucose 89 mg/dl (70-99); Magnesium 2.1 mg/dl (1.6-2.3); Potassium 4.5 mmol/L (3.5-5.1); Sodium 137 mmol/L (135-145); eGFR > 60.00
[2023-09-02 07:54] LABS: Troponin I 0.695 ng/ml
[2023-09-02 08:19] VITALS: BP 145/77
--- NOTE | 2023-09-02 09:00 | PTCARENOTE ---
Patient refusing SQ Heparin. Purpose of anticoagulant and benefits explained. Patient adamantly refusing Heparin. Patient eager to go home, no c/o pain. Heart healthy life style reviewd with patient, patient verbalized understanding.
[2023-09-02] MEDS: NORVASC 5 MG PO (09:22)
[2023-09-02] MEDS: TOPROL XL 25 MG PO (09:22)
--- NOTE | 2023-09-02 10:26 | W.PN.HOSP.TC ---
Today's Communication/Plan
-
d/c
Assessment / Plan
Assessment / Plan
pt is an 83 year old male
Chest pain --NSTEMI--(History of CAD, with history of 7 stents--most recent 05/2023)--EKG shows ST depressions in leads V2--troponin 0.697, 1.290....apprec cards--cont asa/plavix--cont amlodipine and metoprolol BID per cards--As needed
nitroglycerin-Continue statin--ok for d/c
Hypertensive urgency--likely cause of chest pain, NSTEMI--Patient did not take medications on day of admission--Continue amlodipine, lisinopril, metoprolol
COPD--no exacerbation--still smokes
Hypercholesterolemia--cont statin
History of TIA
BPH status post TURP
Hiatal hernia
code status --DNR/DNI
DVT prophylaxis�heparin
Anticipated Discharge: Today
Subjective/Interval History
-
Date of Service: September 02, 2023
pt ready for d/c--still CP free
Objective Data
-
Labs:
Laboratory Results
09/02/23
06:09
WBC 6.5
Hgb 13.1
Hct 39.1
Plt Count 212
Sodium 137
Potassium 4.5
Chloride 105
Carbon Dioxide 27
BUN 19
Creatinine 0.8
Glucose 89
Calcium 8.7
Vital Signs:
max temp for 24 hours
09/01/23
19:05
Temp 99.1 F
Vital Signs
Temp Pulse Resp BP Pulse Ox
98.2 F 60 16 145/77 95
09/02/23 07:00 09/02/23 07:00 09/02/23 07:00 09/02/23 07:00 09/02/23 07:00
I&O
09/01/23 09/02/23 09/03/23
06:59 06:59 06:59
Intake Total 360 / 360
Output Total 300 / 300 1675 / 1675
Balance -300 / -300 -1315 / -1315
Review of Systems
-
All other systems: Reviewed and negative
Physical Exam
-
General: Well Developed, Well Nourished and No Apparent Distress
HEENT: Normocephalic and Atraumatic
Respiratory: Clear to Auscultation; Negative Wheezes or Rhonchi
Cardiac: Regular Rhythm and S1/S2; Negative Murmur
GI: Soft, Nontender, Nondistended and Normal Bowel Sounds
Musculoskeletal: No Clubbing, No Cyanosis and No Edema
Skin: Warm
Neuro: Awake
Psych: Calm
[2023-09-02 11:00] VITALS: BP 142/78
--- NOTE | 2023-09-02 14:29 | W.DCSUMMARY ---
Discharge Summary
Discharge Data
Date of Admission: 08/31/23
Date of Discharge: 09/02/23
-
Pending Results: No
Hospital Course
Primary care physician : Irwin Hein
Principal Discharge diagnosis : Chest pain/NSTEMI, hypertensive urgency
Chronic Discharge diagnosis : chronic obstructive pulmonary disease without exacerbation, hyperlipidemia, history of stroke, benign prostatic hyperplasia status post TURP, hiatal hernia
Hospital Course : Patient is an 83-year-old male with a history of a prior HI status post left circumflex stent in May with an LAD stent in March who presented with crushing chest pressure that started 1 hour prior to arrival. He stated that
the pain radiated to his left arm. He denied nausea, vomiting, shortness of breath. He stated that he was sweating. Troponin was positive at 0.034. Patient was admitted.
Problem #1: Chest pain/NSTEMI. Patient was admitted and seen in consultation by cardiology. EKG on admission showed ST depressions in leads V2. Troponins trended as follows 0.034, 0.697, 1.29, 1.25, 0.79, 0.69. Cardiology favored aggressive
medical therapy as opposed to recath. He should follow-up with cardiology as an outpatient. Amlodipine was increased to twice daily, metoprolol was increased to 25 mg daily in the morning and 50 mg in the evening. Sublingual nitroglycerin was
prescribed as needed. Patient has been hesitant to take nitrates in the past.
Problem #2: Hypertensive urgency. Patient stated he missed his medications on the day of admission. This is the likely cause of his chest pain and non-STEMI. He has been instructed to take his medications moving forward.
Problem #3: All other medical issues. These include chronic obstructive pulmonary disease without exacerbation, hyperlipidemia, history of stroke, benign prostatic hyperplasia status post TURP, hiatal hernia. These medical issues were stable
during his hospitalization. Medications were continued as able.
Patient is stable for discharge home at this time. If there are any questions regarding this dictation or his hospital stay, please not hesitate to call. Our office number is [phone].
Discharge Plan
-
Patient Disposition: Home (Routine Discharge)
Discharge Diagnosis/Procedures: Chest pain/NSTEMI, hypertensive urgency, chronic obstructive pulmonary disease, hyperlipidemia, history of stroke, benign prostatic hyperplasia, hiatal hernia
Condition: Good
Diet: Low Cholesterol
Activity: As tolerated
Driving Restrictions: As prior to admission
Bathing Restrictions: None
Referrals:
Irwin Hein MD [Family Provider] - in less than 1 week
Wilfrde Nevarez MD [Active] - in one week
Prescriptions:
New
amlodipine 5 mg Tablet
5 mg PO BID Qty: 60 0RF
metoprolol succinate 25 mg Tablet Extended Release 24 Hr
25 mg PO DAILY Qty: 30 0RF
nitroglycerin 0.4 mg Tablet, Sublingual
0.4 mg sublingual [id number] PRN (Reason: chest pain ) Qty: 20 0RF
Continued
clopidogrel 75 mg Tablet
75 mg PO QPM
aspirin 81 mg Tablet,Delayed Release (Dr/Ec)
81 mg PO QPM
metoprolol succinate 50 MG tablet extended release 24 hr
50 mg PO QPM
lisinopril 20 mg tablet
20 mg PO QPM
atorvastatin 80 mg Tablet
80 mg PO QPM Qty: 90 5RF
Discontinued
amlodipine 5 mg tablet
5 mg PO QPM
Discharge Orders:
Discharge Patient (As Directed); Ordered 09/02/23
Ordered By: Courtney Kemp
Discharge Date and Time
Discharge Date/Time: 09/02/23 12:18
Print Language: SYRIAC
--- NOTE | 2023-09-02 14:33 | W.PN.CARDCBS ---
Today's Communication / Plan
-
Would favor more aggressive medical therapy rather than repeat coronary angiography (C 05/2023), agree with changing antianginals to twice daily dosing
Stable for discharge from my perspective
I have asked my office to reach out to him to schedule a follow-up appointment
Impression / Plan
-
PCP: Dr. Hein
Cardiology: Dr. Burris
Impression:
Chest pain
CAD
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
NSTEMI and 3.25 mm Xience to mid LAD 04/09/23
NSTEMI and 2.5 mm Aaron to ostial-prox Circ, patent mid LAD stent, ACCOUNT RELATIONSHIP MANAGER RCA by cath 06/04/23Cerebrovascular disease, history of TIA 2013
Left vertebral artery stenosis
Carotid ultrasound with <50% bilateral stenosis 2017Degenerative disc disease
History of lower extremity del real
Hypertension
Hypercholesterolemia
Tobacco use
Noncompliance
Echo 04/09/2023: Ejection fraction 55 to 60%
Plan:
Presents following an episode of chest discomfort found to have low level troponin elevation peaking at 1.29
Underwent LHC within the past 3 months showing patent LAD stent and ACCOUNT RELATIONSHIP MANAGER of the RCA
Likely develops angina related to his RCA ACCOUNT RELATIONSHIP MANAGER when he is hypertensive and tachycardic
Plan for more aggressive anti-anginal therapy to control HR and BP, would discharge on BID dosing of metoprolol and amlodipine
Discussed with patient adding Ranexa as an additional agent - avoid nitrates due to ED meds
Asymptomatic overnight into this morning and interested in discharge home
Stable from my perspective. Will ask our office to reach out to schedule follow up.
Progress Note - [facility]
Subjective
Date of Service: September 02, 2023
No acute overnight events. Patient is resting comfortably this morning, no further chest discomfort.
Objective
Labs:
09/02/23 06:09
09/02/23 06:09
Labs
Hgb 13.1 g/dL (13.0-18.0) 09/02/23 06:09
Hct 39.1 % (39.0-52.0) 09/02/23 06:09
Plt Count 212 10^3/uL (130-400) 09/02/23 06:09
APTT 24.5 Sec (23.4-35.0) 08/31/23 20:09
Sodium 137 mmol/L (135-145) 09/02/23 06:09
Potassium 4.5 mmol/L (3.5-5.1) 09/02/23 06:09
BUN 19 mg/dl (9-20) 09/02/23 06:09
Creatinine 0.8 mg/dL (0.7-1.3) 09/02/23 06:09
Glucose 89 mg/dl (70-99) 09/02/23 06:09
Troponins
08/31/23 08/31/23 09/01/23
20:09 22:23 02:06
Troponin I 0.034 Cancelled 0.697 H* D
09/01/23 09/01/23 09/01/23
07:38 14:48 20:32
Troponin I 1.290 H* D 1.250 H* 0.795 H* D
09/02/23
06:09
Troponin I 0.695 H*
Vital Signs and I&O:
Vital Signs
Temp Pulse Resp BP Pulse Ox
98.6 F 63 18 142/78 98
09/02/23 11:00 09/02/23 11:00 09/02/23 11:00 09/02/23 11:00 09/02/23 11:00
Vital Signs
Temp Pulse Resp BP Pulse Ox
98.6 F 63 18 142/78 98
09/02/23 11:00 09/02/23 11:00 09/02/23 11:00 09/02/23 11:00 09/02/23 11:00
Intake & Output
08/31/23 09/01/23 09/02/23 09/03/23
06:59 06:59 06:59 06:59
Intake Total 360 / 360
Output Total 300 / 300 1675 / 1675
Balance -300 / -300 -1315 / -1315
Physical Exam
Physical Exam
Gen: NAD, AAOx3
HEENT: NC/AT, sclera anicteric
Neck: No JVD
CV: RRR, NL s1/s2, no M/R/G
Lungs: CTAB
Abd: S/ND
Ext: No LE edema
Skin: Warm, dry
Neuro: Non-focal
== END 2023-09-02 12:18 | disposition home or self-care (01) ==
LOC: 4 WEST ACU 21:46
PROVIDERS: Emergency Medicine; ADMITTING PHYSICIAN Hospitalist; ATTENDING PHYSICIAN Internal Medicine; CONSULT PHYSICIAN Internal Medicine Cardiovascular Disease; EMERGENCY PHYSICIAN Student in an Organized Health Care Education/Training Program; FAMILY PHYSICIAN Internal Medicine
DX: I21.4 Non-ST elevation (NSTEMI) myocardial infarction (principal); R07.9 Chest pain, unspecified; I16.0 Hypertensive urgency; I25.10 Atherosclerotic heart disease of native coronary artery without angina pectoris; J44.9 Chronic obstructive pulmonary disease, unspecified; E78.00 Pure hypercholesterolemia, unspecified; I11.0 Hypertensive heart disease with heart failure; K21.9 Gastro-esophageal reflux disease without esophagitis; I25.2 Old myocardial infarction; M79.602 Pain in left arm; Z90.79 Acquired absence of other genital organ(s); K44.9 Diaphragmatic hernia without obstruction or gangrene; N40.0 Benign prostatic hyperplasia without lower urinary tract symptoms; F17.290 Nicotine dependence, other tobacco product, uncomplicated; Z79.82 Long term (current) use of aspirin; Z86.73 Personal history of transient ischemic attack (TIA), and cerebral infarction without residual deficits; Z79.02 Long term (current) use of antithrombotics/antiplatelets; Z95.5 Presence of coronary angioplasty implant and graft; Z87.442 Personal history of urinary calculi; Z66 Do not resuscitate; Z91.199 Patient's noncompliance with other medical treatment and regimen due to unspecified reason
CPT/HCPCS: 71046; 80048; 80053; 83735; 83880; 84484; 85025; 85027; 85730; 93005; 99285; 99406; G0378

== ENCOUNTER → 2023-09-22 08:35 | Outpatient (REF) | payer MEDICARE, OTHER, SELFPAY | LOC: MRI 3T 08:35 | PROVIDERS: ATTENDING PHYSICIAN Orthopaedic Surgery Hand Surgery; FAMILY PHYSICIAN Internal Medicine | DX: M75.102 Unspecified rotator cuff tear or rupture of left shoulder, not specified as traumatic (principal); M12.812 Other specific arthropathies, not elsewhere classified, left shoulder | CPT/HCPCS: 73221 ==

== ENCOUNTER 2023-10-17 17:24 | Inpatient (IN) | payer MEDICARE, OTHER, SELFPAY ==
[2023-10-17] VITALS (7 sets, daily range): BP systolic 125–185; BP diastolic 57–98; BMI 22.6
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
[2023-10-17 16:29] LABS: % Basophils 0.4 % (0-2); % Eosinophils 0.4 % (0-6); % Immature Granulocytes 0.4 % (0-0.5); % Lymphocytes 8.8 % (20.5-51.1); % Monocytes 6.8 % (1.7-9.3); % Neutrophils 83.2 % (42.2-75.2); Absolute Basophils 0.1 10^3/uL (0-0.2); Absolute Immature Granulocytes 0.1 10^3/uL (0-0.05); Absolute Monocytes 0.8 10^3/uL (0.1-0.6); Absolute Neutrophils 9.4 10^3/uL (1.4-6.5); Hematocrit 38.4 % (39.0-52.0); Hemoglobin 13.4 g/dL (13.0-18.0); Mean Corp Hgb Conc. 34.9 g/dL (33.0-37.0); Mean Corpuscular Hgb 29.3 pg (27.0-31.0); Mean Platelet Volume 9.9 fL (7.4-10.4); Nucleated Red Blood Cells % 0 % (-); Platelet Count 213 10^3/uL (130-400); Red Blood Cell Count 4.57 10^6/uL (4.70-6.10); Red Cell Dist. Width 13.2 % (11.5-14.5); White Blood Cell Count 11.3 10^3/uL (4.8-10.8)
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
[2023-10-17 16:47] LABS: ALT (SGPT) 16 U/L (0-50); AST (SGOT) 27 U/L (17-59); Albumin 4.1 g/dl (3.5-5.0); Alkaline Phosphatase 72 U/L (38-126); Blood Urea Nitrogen 14 mg/dl (9-20); Calcium 8.8 mg/dl (8.4-10.2); Carbon Dioxide 25 mmol/L (22-30); Chloride 104 mmol/L (98-107); Glucose 91 mg/dl (70-99); Potassium 4.5 mmol/L (3.5-5.1); Sodium 135 mmol/L (135-145); Total Bilirubin 0.8 mg/dl (0.2-1.3); Total Protein 6.6 g/dl (6.3-8.2); eGFR > 60.00
[2023-10-17] MEDS: ASPIR LOW (ENTERIC COATED) 81 MG PO (21:25)
[2023-10-17] MEDS: NORVASC 5 MG PO (21:25)
[2023-10-17] MEDS: LIPITOR 80 MG PO (21:25)
[2023-10-17] MEDS: LOVENOX SC ×2 (21:25→21:30)
[2023-10-17] MEDS: PLAVIX 75 MG PO (21:26)
[2023-10-17] MEDS: ZESTRIL 20 MG PO (21:26)
[2023-10-17] MEDS: TOPROL XL 25 MG PO (21:26)
[2023-10-17] MEDS: TYLENOL 650 MG PO (21:26)
--- NOTE | 2023-10-17 23:12 | PTCARENOTE ---
Pt received from ED via stretcher. Pulled over to bed x3 without incident. Pt c/o L hip pain w/movement. AAOx3, oriented to surroundings and plan of care discussed. Admission completed by cash management coordinator RN. Refusing PO bowel regiman and subQ
lovenox despite education. Boxed lunch provided, consumed 100%. Full physical assessment completed (refer to worklist) L elbow w/abrasion, covered w/foam dressing. 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
raised area noted. LLE shortened. Knee high SCDs placed. Q2 turns, urinal provided. Pt denies pain at present if not moving. Call tovar within reach. Plan of care ongoing.
[2023-10-18] MEDS: TYLENOL PO ×7 (00:43→23:35)
[2023-10-18] MEDS: ROXICODONE 5 MG PO (06:10)
[2023-10-18 07:18] VITALS: BP 145/79
[2023-10-18 08:11] LABS: Hematocrit 36.1 % (39.0-52.0); Hemoglobin 12.4 g/dL (13.0-18.0); Mean Corp Hgb Conc. 34.3 g/dL (33.0-37.0); Mean Corpuscular Hgb 29.3 pg (27.0-31.0); Mean Corpuscular Volume 85.3 fL (80.0-94.0); Mean Platelet Volume 9.9 fL (7.4-10.4); Platelet Count 200 10^3/uL (130-400); Red Blood Cell Count 4.23 10^6/uL (4.70-6.10); Red Cell Dist. Width 13.2 % (11.5-14.5); White Blood Cell Count 5.7 10^3/uL (4.8-10.8)
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
[2023-10-18 09:10] LABS: Blood Urea Nitrogen 14 mg/dl (9-20); Calcium 8.8 mg/dl (8.4-10.2); Carbon Dioxide 26 mmol/L (22-30); Chloride 104 mmol/L (98-107); Estimated Creatinine Clearance 51 ml/min; Glucose 92 mg/dl (70-99); Magnesium 2.1 mg/dl (1.6-2.3); Potassium 4.5 mmol/L (3.5-5.1); Sodium 136 mmol/L (135-145); eGFR > 60.00
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
[2023-10-18 15:01] VITALS: BP 155/80; O2SAT 97
[2023-10-18 15:27] VITALS: BP 159/81
--- NOTE | 2023-10-18 15:44 | PTCARENOTE ---
Assumed care of pt from previous nurse. Pt denies pain. Pt worked with PT, OOB to chair, tolerating well. Pt call tovar is within reach, pt rings [email or web address] cont to monitor.
--- NOTE | 2023-10-18 16:20 | CM ---
CM sent referral to [facility] at for consideration. Await determination re: ability to accept.
CM will continue to follow.
PCP: Noam Hein
Pharmacy: [facility] in [place]
--- NOTE | 2023-10-18 16:24 | CM ---
CM met with Randy to complete IA. He lives alone in a split level home with 2 entry steps and 12 steps to the upper level. 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 PT eval indicates pt appropriate for inpatient acute rehabilitation.
Referral submitted to [facility] for consideration.
CM will follow to facilitate d/c planning needs as indicated by further hospitalization.
[2023-10-18] MEDS: NORVASC 5 MG PO (18:11)
[2023-10-18] MEDS: ZESTRIL 20 MG PO (18:11)
[2023-10-18] MEDS: ASPIR LOW (ENTERIC COATED) 81 MG PO (18:11)
[2023-10-18] MEDS: LOVENOX SC (18:12)
[2023-10-18] MEDS: PLAVIX 75 MG PO (18:12)
[2023-10-18] MEDS: TOPROL XL 25 MG PO (18:12)
[2023-10-18] MEDS: LIPITOR 80 MG PO (18:12)
[2023-10-18 23:36] VITALS: BP 139/73
[2023-10-19] MEDS: TYLENOL PO ×4 (03:22→15:39)
[2023-10-19 07:50] VITALS: BP 136/64
[2023-10-19] MEDS: ROXICODONE 5 MG PO ×2 (10:25→17:02)
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
[2023-10-19 11:15] VITALS: BP 172/90; PULSE 68; O2SAT 98
--- NOTE | 2023-10-19 12:11 | CM ---
CM continues to follow for discharge planning. PT and OT both recommending acute rehab at this time. Case discussed with Devi Jose at [facility] and await determination after records are reviewed.
--- NOTE | 2023-10-19 13:32 | W.DS.TRANS ---
DC Summary - [employer]
-
Discharge Instructions:
Discharge Diagnosis/Procedures nondisplaced greater trochanter fracture of his
left hip
Diet Low Cholesterol,Low Fat
Activity As tolerated
Driving Restrictions No driving
Instructions:
Stand-Alone Forms:
Changes to Home Medications: Yes
Discharge Medications:
DC Medications w/original date entered in [facility]
aspirin 81 mg tablet,delayed release 81 mg PO QPM Blood Clot Prevention/Tx 04/06/23
clopidogrel 75 mg tablet 75 mg PO QPM Blood Clot Prevention/Tx 04/06/23
lisinopril 20 mg tablet 20 mg PO QPM Blood Pressure 06/02/23
atorvastatin 80 mg tablet 80 mg PO QPM High cholesterol #90 tabs 06/05/23
nitroglycerin 0.4 mg sublingual tablet 0.4 mg sublingual [id number] PRN chest pain #20 tabs 09/02/23
amlodipine 5 mg tablet 5 mg PO QPM Blood pressure 10/17/23
metoprolol succinate 25 mg tablet,extended release 24 hr 25 mg PO QPM Heart disease/condition 10/17/23
acetaminophen 325 mg tablet 650 mg (2 x 325 mg) PO Q4HWA PRN Pain #20 tabs 10/19/23
oxycodone 5 mg tablet 5 mg PO Q4HPRN PRN mild pain #10 tabs 10/19/23
Home Medication Changes
acetaminophen 325 mg tablet 650 mg (2 x 325 mg) PO Q4HWA PRN Pain #20 tabs 10/19/23
oxycodone 5 mg tablet 5 mg PO Q4HPRN PRN mild pain #10 tabs 10/19/23
Pending Results: No
--- NOTE | 2023-10-19 13:33 | CM ---
CM contacted by Devi Jose of [facility] and Randy has been accepted for transfer. Bed will be available around 4pm; unit advised to call there around 4pm to check status of bed.
Plan: Transfer to [facility] at [place] today.
PCP: Noam Hein
Pharmacy: [facility] in [place]
Report: [phone]
[2023-10-19 13:52] VITALS: PULSE 64; O2SAT 98
[2023-10-19 15:10] VITALS: BP 132/61
[2023-10-19] MEDS: PLAVIX 75 MG PO (17:02)
[2023-10-19] MEDS: NORVASC 5 MG PO (17:02)
[2023-10-19] MEDS: TOPROL XL 25 MG PO (17:02)
[2023-10-19] MEDS: ZESTRIL 20 MG PO (17:02)
[2023-10-19] MEDS: LIPITOR 80 MG PO (17:03)
[2023-10-19] MEDS: ASPIR LOW (ENTERIC COATED) 81 MG PO (17:03)
[2023-10-19] MEDS: LOVENOX 40 MG SC (17:03)
== END 2023-10-19 18:44 | DRG 536 ==
LOC: 4 EAST ACU 17:24
PROVIDERS: Physician Assistant; ADMITTING PHYSICIAN Internal Medicine; ATTENDING PHYSICIAN Internal Medicine; CONSULT PHYSICIAN Orthopaedic Surgery; EMERGENCY PHYSICIAN Emergency Medicine; FAMILY PHYSICIAN Internal Medicine
DX: S72.115A Nondisplaced fracture of greater trochanter of left femur, initial encounter for closed fracture (principal); M97.02XA Periprosthetic fracture around internal prosthetic left hip joint, initial encounter; S09.90XA Unspecified injury of head, initial encounter; I16.0 Hypertensive urgency; I25.10 Atherosclerotic heart disease of native coronary artery without angina pectoris; J44.9 Chronic obstructive pulmonary disease, unspecified; Z66 Do not resuscitate; K21.9 Gastro-esophageal reflux disease without esophagitis; E78.00 Pure hypercholesterolemia, unspecified; I10 Essential (primary) hypertension; K44.9 Diaphragmatic hernia without obstruction or gangrene; F17.290 Nicotine dependence, other tobacco product, uncomplicated; N40.0 Benign prostatic hyperplasia without lower urinary tract symptoms; D72.829 Elevated white blood cell count, unspecified; I25.2 Old myocardial infarction; Z95.5 Presence of coronary angioplasty implant and graft; Z86.73 Personal history of transient ischemic attack (TIA), and cerebral infarction without residual deficits; Z79.82 Long term (current) use of aspirin; Z79.02 Long term (current) use of antithrombotics/antiplatelets; Z79.899 Other long term (current) drug therapy; Y04.2XXA Assault by strike against or bumped into by another person, initial encounter; W03.XXXA Other fall on same level due to collision with another person, initial encounter
CPT/HCPCS: 70450; 73502; 80048; 80053; 83735; 85025; 85027; 97116; 97162; 97166; 97530; 97535; 99285; 99406

== ENCOUNTER 2024-06-02 08:32 | Emergency (ER) | payer MEDICARE, OTHER, SELFPAY ==
[2024-06-02 08:51] VITALS: BP 139/89
[2024-06-02 09:17] LABS: % Basophils 0.7 % (0-2); % Eosinophils 1.2 % (0-6); % Immature Granulocytes 0.3 % (0-0.5); % Lymphocytes 22.4 % (20.5-51.1); % Monocytes 9.4 % (1.7-9.3); Absolute Basophils 0.1 10^3/uL (0-0.2); Absolute Eosinophils 0.1 10^3/uL (0-0.7); Absolute Lymphocytes 1.5 10^3/uL (1.2-3.4); Absolute Monocytes 0.6 10^3/uL (0.1-0.6); Absolute Neutrophils 4.4 10^3/uL (1.4-6.5); Hematocrit 41.5 % (39.0-52.0); Hemoglobin 13.8 g/dL (13.0-18.0); Mean Corp Hgb Conc. 33.3 g/dL (33.0-37.0); Mean Corpuscular Hgb 29.2 pg (27.0-31.0); Mean Corpuscular Volume 87.9 fL (80.0-94.0); Mean Platelet Volume 10.1 fL (7.4-10.4); Nucleated Red Blood Cells % 0 % (-); Platelet Count 211 10^3/uL (130-400); Red Blood Cell Count 4.72 10^6/uL (4.70-6.10); Red Cell Dist. Width 13.4 % (11.5-14.5); White Blood Cell Count 6.7 10^3/uL (4.8-10.8)
[2024-06-02 09:22] VITALS: BMI 22.7
[2024-06-02 09:29] LABS: ALT (SGPT) 20 U/L (0-50); AST (SGOT) 24 U/L (17-59); Albumin 4.1 g/dl (3.5-5.0); Alkaline Phosphatase 67 U/L (38-126); Blood Urea Nitrogen 18 mg/dl (9-20); Calcium 9.2 mg/dl (8.4-10.2); Carbon Dioxide 28 mmol/L (22-30); Chloride 105 mmol/L (98-107); Estimated Creatinine Clearance 51 ml/min; Glucose 99 mg/dl (70-99); Sodium 139 mmol/L (135-145); Total Bilirubin 0.6 mg/dl (0.2-1.3); Total Protein 6.9 g/dl (6.3-8.2); eGFR > 60.00
--- NOTE | 2024-06-02 09:38 | ED.GENMED ---
History of Present Illness
General
Chief Complaint: Rectal Bleeding
Source: patient
Exam Limitations: none
Time Seen by Provider: 06/02/24 09:38
Nursing documentation reviewed up to this point in time: agreed with
History of Present Illness
History of Present Illness:
83 yr old male presents to the ER with dark stools. Patient reports he started taking Pepto-Bismol for the past 2 days and that is when he noticed his stools became dark. He was taking Pepto-Bismol because he reports he has been eating a lot of
Nigerian spicy foods like salami etc. and has had some reflux. He has been drinking occaistional beer with his 'Nigerian foods.'
He denies any history of GI bleed in the past. He denies any abdominal pain nausea vomiting . He denies any weakness. no hemorrhoids.\\
He was supposed to be taking aspirin recently decided to stop it on his own.
Past History
Past History
ED Past Medical History: CAD, COPD, CVA, GERD, HTN, Hypercholesterolemia, [place] and Other
ED Past Surgical History: Cardiac (Stent) and Other (Skin grafting many years ago for severe del real. Kidney stone removal)
Patient has exhibited threatening behavior?: No
PSI?: No
Social History
Tobacco: Other (Cigar)
Alcohol: Occasional
Drug: None
Personal: Single
Living: alone
Employment: Retired
Family History
Family History: Other (No significant)
Review of Systems
Review of Systems
Allergies reviewed?: Yes
All Other Systems: ROS reviewed and negative except as documented in HPI and ROS
Constitutional: Reports no symptoms; Denies fever, fatigue or chills
ABD/GI: Reports black stools; Denies abdominal pain, nausea, vomiting or diarrhea
: Reports no symptoms
Musculoskeletal: Reports no symptoms
Skin: Reports no symptoms
Neurological: Reports no symptoms
Psychiatric: Reports no symptoms
Phy Exam
General Physical Exam
General Presentation: no apparent distress
General age: appears stated age
General Skin: warm and dry
General Habitus: elderly
General Mental: alert
General Hydration: appears well hydrated
Cardiovascular Exam
Cardiovascular Exam: regular rate/rhythm
Pulmonary Exam
Pulmonary Exam: lungs clear and no respiratory distress
Gastrointestinal Exam
Gastrointestinal Exam: soft and other (Black stools heme-negative)
Neurological Exam
Neurological Exam: alert and oriented x3
Musculoskeletal Exam
Musculoskeletal Exam: full ROM
Skin Exam
Skin Exam: normal color and warm/dry
Psychiatric Exam
Psychiatric Exam: normal mood/affect
Course
Orders/Labs/Results
Orders:
Orders
06/02/24 09:01
Type And Crossmatch [Type+Screen] Urgent
Complete Blood Count/With Diff Urgent
06/02/24 09:02
Comprehensive Metabolic Panel Urgent
06/02/24 09:25
ABO2 Routine
BBK Wristband Number:
Associate notified that ABO2 has been ordered: [id number]
Date: 06/02/24
Time: 09:26
[employer] Consultant ID: [id number]
Abnormal Lab Results
06/02/24
09:01
Monocytes % 9.4 H %
(1.7-9.3)
06/02/24 09:01
06/02/24 09:02
Vital Signs
Initial and Last Documented VS:
Initial Vital Signs
Temp Pulse Resp BP Pulse Ox
98.4 F 66 18 139/89 98
06/02/24 08:51 06/02/24 08:51 06/02/24 08:51 06/02/24 08:51 06/02/24 08:51
Last Documented Vital Signs
Temp Pulse Resp BP Pulse Ox
98.4 F 66 18 139/89 98
06/02/24 08:51 06/02/24 08:51 06/02/24 08:51 06/02/24 08:51 06/02/24 08:51
MDM/Problems Addressed
Differential Diagnosis Includes:
Not limited to dark stools from Pepto-Bismol, less likely GI bleed
MDM/Problems Addressed:
Patient presented with dark stools for the past 2 days incidentally while he has been taking Pepto-Bismol. He has no prior history of GI bleed. He is on aspirin normally but stopped it a couple weeks ago on his own because he decided to do so. He
does have reflux recently but relates this to spicy [place] meats such as salami etc. He denies any abdominal pain weakness nausea vomiting. He denies any weakness he is very well-appearing abdomen soft nontender. Stools are heme-negative black
stools likely from Pepto-Bismol. His labs are unremarkable his hemoglobin is stable at 13.8 he is nontachycardic in no acute distress very well-appearing.
I did recommend the patient's stop eating spicy foods. He does drink alcohol as well intermittently I did instruct patient to stop spicy foods and alcohol he may take Pepcid [id number] discussed close the patient follow-up with family doctor
as well as GI for reflux evaluation. Recommended to stop Pepto-Bismol and return if any worsening of symptoms. I did recommend that he speak with his family doctor about stopping his aspirin.
*Critical Care Note
Total Time (30-74mins, 75-104mins- exclusive of procedures): Not Applicable
ED Attending Note
-
Portions of this chart may have been created with voice recognition software.� Occasional wrong word or��sound alike� substitutions may have occurred due to the inherent limitations of voice recognition software.
Discharge Plan
Departure
Patient with high blood pressure during this ER visit?: Yes
Condition: Fair
Covid-19: Not Applicable
Discharge Problem:
Dark stools
Instructions: BLOOD PRESSURE
Prescriptions:
No Action
bismuth subsalicylate [Pepto-Bismol] 262 mg/15 mL Suspension
See Rx Instructions .ROUTE .COMPLEX PRN (Reason: HEARTBURN)
Rx Instructions:
06/02/24: PATIENT STATES HE TOOK HALF A BOTTLE OF PEPTO BISMOL LIQUID.
atorvastatin 80 mg tablet
40 mg PO QPM
lisinopril 20 mg tablet
20 mg PO QPM Qty: 30 0RF
clopidogrel 75 mg Tablet
75 mg PO QPM Qty: 30 0RF
amlodipine 5 mg tablet
5 mg PO QPM Qty: 30 0RF
metoprolol succinate 25 mg tablet extended release 24 hr
25 mg PO QPM Qty: 30 0RF
Referrals:
Sha Kauffman MD [Active] -
Irwin Hein MD [Family Provider] -
Activity Restrictions/Additional Instructions:
As discussed your stool was negative for blood. Stop Pepto-Bismol. If needed you may take Pepcid over the counter.
It is recommended that you follow-up with your family doctor for further reevaluation of symptoms as well as GI.
Avoid all spicy foods, alcohol etc.
Interventions
Interventions:
*Risk Screen - Suicide Last Done: 06/02/24 08:51
*General Assessment Last Done: 06/02/24 08:51
*Neglect/Abuse Screening Last Done: 06/02/24 08:51
*ED- Fall Risk Assessment Last Done: 06/02/24 09:22
*ED COVID-19 Vaccine History Last Done: 06/02/24 09:22
LK-[id number]-[id number] Assessment Last Done: 06/02/24 09:22
ED- Cardiac Assessment Last Done: 06/02/24 09:22
ED- Pulmonary Assessment Last Done: 06/02/24 09:22
Discharge Date and Time
Print Language: YI
[2024-06-02 10:30] VITALS: BP 177/88
== END 2024-06-02 10:31 | disposition home or self-care (01) ==
LOC: EMR 08:32
PROVIDERS: Emergency Medicine; EMERGENCY PHYSICIAN Student in an Organized Health Care Education/Training Program; FAMILY PHYSICIAN Internal Medicine
DX: R19.5 Other fecal abnormalities (principal); I25.10 Atherosclerotic heart disease of native coronary artery without angina pectoris; J44.9 Chronic obstructive pulmonary disease, unspecified; K21.9 Gastro-esophageal reflux disease without esophagitis; I10 Essential (primary) hypertension; E78.00 Pure hypercholesterolemia, unspecified; F17.290 Nicotine dependence, other tobacco product, uncomplicated; Z86.73 Personal history of transient ischemic attack (TIA), and cerebral infarction without residual deficits; Z95.5 Presence of coronary angioplasty implant and graft
CPT/HCPCS: 99283; 80053; 85025; 86850; 86900; 86901

== ENCOUNTER 2024-09-21 20:01 | Emergency (ER) | payer MEDICARE, OTHER, SELFPAY ==
[2024-09-21] VITALS (15 sets, daily range): BP systolic 105–209; BP diastolic 57–108; BMI 21.8
[2024-09-21] MEDS: LOW STRENGTH ASPIRIN 324 MG PO (20:18)
[2024-09-21] MEDS: NITROSTAT (SUBLINGUAL) 0.4 MG SL ×3 (20:22→20:40)
[2024-09-21 20:32] LABS: % Eosinophils 1.5 % (0-6); % Immature Granulocytes 0.2 % (0-0.5); % Lymphocytes 28.6 % (20.5-51.1); % Monocytes 9.2 % (1.7-9.3); % Neutrophils 59.5 % (42.2-75.2); Absolute Basophils 0.1 10^3/uL (0-0.2); Absolute Eosinophils 0.1 10^3/uL (0-0.7); Absolute Lymphocytes 1.8 10^3/uL (1.2-3.4); Absolute Monocytes 0.6 10^3/uL (0.1-0.6); Absolute Neutrophils 3.7 10^3/uL (1.4-6.5); Hematocrit 39.7 % (39.0-52.0); Hemoglobin 13.6 g/dL (13.0-18.0); Mean Corp Hgb Conc. 34.3 g/dL (33.0-37.0); Mean Corpuscular Hgb 29.4 pg (27.0-31.0); Mean Corpuscular Volume 85.9 fL (80.0-94.0); Mean Platelet Volume 9.9 fL (7.4-10.4); Nucleated Red Blood Cells % 0 % (-); Platelet Count 213 10^3/uL (130-400); Red Blood Cell Count 4.62 10^6/uL (4.70-6.10); Red Cell Dist. Width 13.7 % (11.5-14.5); White Blood Cell Count 6.1 10^3/uL (4.8-10.8)
[2024-09-21 20:54] LABS: ALT (SGPT) 15 U/L (0-50); AST (SGOT) 23 U/L (17-59); Albumin 4.5 g/dl (3.5-5.0); Alkaline Phosphatase 71 U/L (38-126); Blood Urea Nitrogen 22 mg/dl (9-20); Calcium 8.8 mg/dl (8.4-10.2); Carbon Dioxide 23 mmol/L (22-30); Chloride 110 mmol/L (98-107); Estimated Creatinine Clearance 44 ml/min; Glucose 190 mg/dl (70-99); Magnesium 2.2 mg/dl (1.6-2.3); Sodium 141 mmol/L (135-145); Total Bilirubin 0.6 mg/dl (0.2-1.3); Total Protein 7.3 g/dl (6.3-8.2); eGFR > 60.00
[2024-09-21 21:06] LABS: NT-proBNP 476 pg/ml; Troponin I 0.025 ng/ml
[2024-09-21] MEDS: NITROGLYCERIN PREMIX 250 IV (21:28)
--- NOTE | 2024-09-21 22:24 | ED.GENMED ---
History of Present Illness
General
Chief Complaint: Cardiac Symptoms
Source: patient
Exam Limitations: none
Time Seen by Provider: 09/21/24 20:08
Nursing documentation reviewed up to this point in time: agreed with
History of Present Illness
History of Present Illness:
Patient with history of CAD with multiple cardiac stents, presents ED secondary to sudden onset of chest pain, while he was at home, and approxi-1 hour prior to arrival. Chest pain described as heavy pressure in the middle of his chest, with
radiation to both arms, without any alleviating or exacerbating factors. Denies shortness of breath. Denies dizziness. Denies diaphoresis. Denies nausea. Patient states that his symptoms are similar to previous episodes, when he had heart
attack. Denies recent illness. Denies recent travel. Denies back pain. Denies leg pain or swelling. Of note, patient still smokes cigar daily.
Past History
Past History
ED Past Medical History: CAD, COPD, CVA, GERD, HTN, Hypercholesterolemia, [place] and Other
ED Past Surgical History: Cardiac (Stent) and Other (Skin grafting many years ago for severe del real. Kidney stone removal)
Patient has exhibited threatening behavior?: No
PSI?: No
Social History
Tobacco: Other (Cigar)
Alcohol: Occasional
Drug: None
Personal: Single
Living: alone
Employment: Retired
Family History
Family History: Other (No significant)
Review of Systems
Review of Systems
Allergies reviewed?: Yes
All Other Systems: ROS reviewed and negative except as documented in HPI and ROS
Constitutional: Reports no symptoms
Respiratory: Denies trouble breathing
Cardiac: Reports chest pain
ABD/GI: Reports no symptoms
Musculoskeletal: Reports no symptoms
Skin: Reports no symptoms
Neurological: Reports no symptoms
Phy Exam
Physical Exam
Physical Exam:
Physical Exam
General: mild painful distress, not acutely ill. afebrile
Head: nc/at. eomi
Neck: supple. normal range of motion.
Heart: s1/s2 regular rate and rhythm. no murmur
Lungs: no acute respiratory distress. clear bilaterally. chest wall nontender to palpation
Abdomen: normal bowel sounds. not tender.
Neuro: alert and oriented x 3. no focal neurological deficits
Skin: no rash
Psychiatric: well kept. interactive and cooperative
Extremities: no edema. no calf tenderness.
Course
Orders/Labs/Results
Orders:
Orders
09/21/24
Electrocardiogram (*1) Stat
Reason for Study: Chest Pain
09/21/24 20:02
EKG [Electrocardiogram (*1)] Urgent
Reason for Study: Chest Pain
EKG- Treatment ONCE
09/21/24 20:16
Aspirin Chewable [Low Strength Aspirin] 324 mg .ROUTE .STK-MED ONE
Nitroglycerin Sublingual [Nitrostat (Sublingual)] 0.4 mg .ROUTE .STK-MED ONE
09/21/24 20:17
Aspirin Chewable [Low Strength Aspirin] 324 mg PO NOW STA
Nitroglycerin Sublingual [Nitrostat (Sublingual)] 0.4 mg SL NOW STA
CR Chest Portable - 1 View Urgent
Comment:
Reason For Exam: chest pain
Reason Study Needs to be Portable: Patient Unstable
09/21/24 20:24
Complete Blood Count/With Diff Urgent
Comprehensive Metabolic Panel Urgent
Magnesium Urgent
NT-proBNP Urgent
Comment: ADD ON
Troponin I Urgent
09/21/24 20:26
Add On- LAB Urgent
Tests Added?: ProBNP
09/21/24 20:31
Nitroglycerin Sublingual [Nitrostat (Sublingual)] 0.4 mg SL NOW STA
09/21/24 20:40
Nitroglycerin Sublingual [Nitrostat (Sublingual)] 0.4 mg SL NOW STA
09/21/24 21:30
Nitroglycerin 100 mg/250 ml [Nitroglycerin Premix] 100 mg in 250 ml IV PER PROTOCOL
Initial dose in mcg/min, then titrate:: 25
Titrate to keep:: Chest Pain Free
Titrate by mcg/min:: 5 mcg/min, may increase by 10 mcg/min if dose > 20 mcg/min
Frequency of titrations (minutes):: every 3-5 minutes
Maximum dose in mcg/min:: 200
Begin to taper infusion when:: Remained at goal for 2hrs
Taper by mcg/min:: 5 mcg/min
Frequency of taper (minutes) if patient maintains goal:: 30
Taper to off?: Yes
If infusion off & no longer maintaining goal:: Contact Provider
Abnormal Lab Results
09/21/24
20:24
RBC 4.62 L 10^6/uL
(4.70-6.10)
Chloride 110 H mmol/L
(98-107)
BUN 22 H mg/dl
(9-20)
Glucose 190 H mg/dl
(70-99)
09/21/24 20:24
09/21/24 20:24
Vital Signs
Initial and Last Documented VS:
Initial Vital Signs
Temp Pulse Resp BP Pulse Ox
98.0 F 93 20 209/108 99
09/21/24 20:03 09/21/24 20:03 09/21/24 20:03 09/21/24 20:03 09/21/24 20:03
Last Documented Vital Signs
Temp Pulse Resp BP Pulse Ox
98.0 F 53 17 106/59 95
09/21/24 20:03 09/21/24 23:30 09/21/24 23:30 09/21/24 23:30 09/21/24 23:30
MDM/Problems Addressed
MDM/Problems Addressed:
History, exam, and EKG with nonspecific ST depression, concerning for acute coronary syndrome. Chest pain gradually improved with administration of nitroglycerin. Patient started on nitroglycerin infusion complete resolution of chest pain.
Initial blood work reveals minimally elevated troponin. Unfortunately, despite multiple conversations, patient requesting be discharged home without any further workup. Patient will sign out AGAINST MEDICAL ADVICE. Patient does understand that
his presenting symptoms may represent another heart attack, and that his symptoms may worsen upon discharge from the ED, including potential . Patient will return to ED after he takes care of problems at home, or follow-up with his primary
gardener.
*Pulse Oximetry
SaO2: 94
Oxygen Mode of Delivery: Room air
Patient hypoxic: no
*Critical Care Note
Total Time (30-74mins, 75-104mins- exclusive of procedures): Not Applicable
ED Attending Note
-
Portions of this chart may have been created with voice recognition software.� Occasional wrong word or��sound alike� substitutions may have occurred due to the inherent limitations of voice recognition software.
Discharge Plan
Departure
Patient Disposition: Home (Routine Discharge)
Date of Disposition: 09/21/24
Time of Disposition: 22:46
Patient with high blood pressure during this ER visit?: Yes
Discharge Problem:
Left against medical advice, Chest pain
Instructions: Leaving Against Medical Advice, Chest Pain DCA Follow Up
Prescriptions:
No Action
bismuth subsalicylate [Pepto-Bismol] 262 mg/15 mL Suspension
1,048 mg PO HSPRN PRN (Reason: HEARTBURN)
Patient Comments:
06/02/24: PATIENT STATES HE TOOK HALF A BOTTLE OF PEPTO BISMOL LIQUID two night in a row
atorvastatin 80 mg tablet
40 mg PO QPM
lisinopril 20 mg tablet
20 mg PO QPM Qty: 30 0RF
clopidogrel 75 mg Tablet
75 mg PO QPM Qty: 30 0RF
amlodipine 5 mg tablet
5 mg PO QPM Qty: 30 0RF
metoprolol succinate 25 mg tablet extended release 24 hr
25 mg PO QPM Qty: 30 0RF
Referrals:
Aashish Burris MD [Active, Cardiology]
Irwin Hein MD [Family Provider, Internal Medicine]
Activity Restrictions/Additional Instructions:
As discussed, you are leaving AGAINST MEDICAL ADVICE. Risks of tongue leaving ED include worsening chest pain, which may indicate potential heart attack and/or . Please follow-up with your gardener as soon as possible for reevaluation, or
consider return to ED for further evaluation and treatment.
Interventions
Interventions:
*Risk Screen - Suicide Last Done: 09/21/24 20:21
*General Assessment Last Done: 09/21/24 20:03
*Neglect/Abuse Screening Last Done: 09/21/24 20:21
*ED- Fall Risk Assessment Last Done: 09/21/24 20:21
*ED COVID-19 Vaccine History Last Done: 09/21/24 20:21
*Nursing Disposition Last Done: 09/21/24 23:45
ED- Pulmonary Assessment Last Done: 09/21/24 20:21
ED- Cardiac Assessment Last Done: 09/21/24 20:21
Discharge Date and Time
Discharge Date/Time: 09/21/24 23:45
Print Language: MONGOLIAN
== END 2024-09-21 23:45 | disposition home or self-care (01) ==
LOC: EMR 20:01
PROVIDERS: EMERGENCY PHYSICIAN Emergency Medicine; FAMILY PHYSICIAN Internal Medicine
DX: R07.89 Other chest pain (principal); Z53.29 Procedure and treatment not carried out because of patient's decision for other reasons; I25.10 Atherosclerotic heart disease of native coronary artery without angina pectoris; E78.00 Pure hypercholesterolemia, unspecified; I11.9 Hypertensive heart disease without heart failure; I25.2 Old myocardial infarction; F17.290 Nicotine dependence, other tobacco product, uncomplicated; Z86.73 Personal history of transient ischemic attack (TIA), and cerebral infarction without residual deficits; Z87.442 Personal history of urinary calculi; Z95.5 Presence of coronary angioplasty implant and graft
CPT/HCPCS: 99283; 71045; 80053; 83735; 83880; 84484; 85025; 93005

== ENCOUNTER 2024-11-12 11:57 | Inpatient (IN) | payer MEDICARE, OTHER, SELFPAY ==
[2024-11-08 23:27] VITALS: BP 129/78
[2024-11-08 23:30] VITALS: BP 129/78
[2024-11-08 23:57] LABS: Hematocrit 36.0 % (39.0-52.0); Hemoglobin 12.1 g/dL (13.0-18.0); Mean Corp Hgb Conc. 33.6 g/dL (33.0-37.0); Mean Corpuscular Volume 84.9 fL (80.0-94.0); Nucleated Red Blood Cells % 0 % (-); Platelet Count 214 10^3/uL (130-400); Red Cell Dist. Width 13.8 % (11.5-14.5)
[2024-11-09] VITALS (11 sets, daily range): BP systolic 105–168; BP diastolic 44–80; BMI 21.8
[2024-11-09 00:10] LABS: ALT (SGPT) 14 U/L (0-50); AST (SGOT) 24 U/L (17-59); Albumin 4.1 g/dl (3.5-5.0); Alkaline Phosphatase 48 U/L (38-126); Blood Urea Nitrogen 27 mg/dl (9-20); Calcium 8.5 mg/dl (8.4-10.2); Carbon Dioxide 24 mmol/L (22-30); Chloride 114 mmol/L (98-107); Glucose 109 mg/dl (70-99); Potassium 4.6 mmol/L (3.5-5.1); Sodium 143 mmol/L (135-145); Total Protein 6.7 g/dl (6.3-8.2); eGFR > 60.00
[2024-11-09 00:23] LABS: Troponin I 0.026 ng/ml
--- NOTE | 2024-11-09 00:26 | ED.GENMED ---
History of Present Illness
General
Chief Complaint: Chest Pain
Source: patient, ambulance crew and previous hospital records
Exam Limitations: none
Time Seen by Provider: 11/08/24 23:48
Nursing documentation reviewed up to this point in time: agreed with
History of Present Illness
History of Present Illness:
This is an 84-year-old gentleman with history of hypertension, hyperlipidemia, CAD, multiple previous MIs,, previous cardiac stents. He presents via EMS with complaints of substernal chest pressure, heaviness that is similar to previous episodes of
angina. No other associated symptoms. He took 4 chewable aspirin at home and was given 3 sublingual nitroglycerin prehospital by EMS.
Since arrival to the ED chest pain has markedly improved, is now resolved.
Prehospital EKG shows normal sinus rhythm with mild ST depression anteriorly V3 and V4 without reciprocal changes.
EKG upon arrival to the ED, anterior ST depression has resolved.
Upon review of records patient presented to this ED September 21 with similar chest pain which eventually resolved after sublingual nitroglycerin and then IV nitroglycerin.
Initial troponin during that visit 0.025. Patient unfortunately decided to leave and signed out AMA.
Most recent cardiac procedures: PTCA with stent to the LAD March 2023, PTCA with stent to the circumflex May 2023.
He suffered a non-STEMI with brief hospitalization August 2023. Recommendation was for aggressive medical management.
Past History
Past History
ED Past Medical History: CAD, COPD, CVA, GERD, HTN, Hypercholesterolemia, [place] and Other
ED Past Surgical History: Cardiac (PTCA with stent to the circumflex May 2023, PTCA with stent to the LAD March 2023) and Other (Skin grafting many years ago for severe del real. Kidney stone removal)
Patient has exhibited threatening behavior?: No
PSI?: No
Social History
Tobacco: Other (Cigar)
Alcohol: Occasional
Drug: None
Personal: Single
Living: alone
Employment: Retired
Family History
Family History: Other (No significant)
Phy Exam
Physical Exam
Physical Exam:
GENERAL: 84-year-old gentleman appears his stated age, awake and alert, pleasant, appears in no acute distress.
EYE: pupils equal and reactive. anicteric
NECK: Supple, nontender, no meningismus, no significant adenopathy.
ENT: oral mucosa is moist. No rhinorrhea.
CARDIAC: Regular rate and rhythm. no murmur.
LUNGS: Clear breath sounds bilaterally, no acute respiratory distress, no wheezes/rales/rhonchi
ABDOMEN: Soft, nondistended, without focal tenderness, no r/g, no cvat. normoactive BS.
NEUROLOGICAL: Alert and oriented x3, no focal neuro deficits.
SKIN: Warm and dry, normal color, skin intact. No rash. Of note there is a small black tick partially embedded right anterior lower leg, not engorged. Tick was removed without incident with tweezers and disposed of.
MUSCULOSKELETAL: No C/C/E. peripheral pulses are full and equal b/l. No palpable tenderness.
PSYCH: Normal and appropriate interaction.
Scores
Heart Score for Chest Pain Patients
STEMI patient?: No
History: Highly Suspicious
ECG: Significant ST-Depression
Age: >/= 65 years
Risk Factors: >/= 3 Risk Factors or History of CAD
Troponin: </= Normal Limit
Heart Score for Chest Pain Patients: 8
Heart Score Risk: 72.7 % MACE over next 6 weeks
Course
Orders/Labs/Results
Orders:
Orders
11/08/24 23:31
Electrocardiogram (*1) Urgent
Reason for Study: Chest Pain
Cardiac Monitoring- Treatment ONCE
EKG- Treatment ONCE
IV Insert/Care/Rem.- Treatment PRN
O2 Therapy [RESP] Urgent
Titrate/Wean O2 to maintain O2 sat greater than (%): 90
Special Instructions: Maintain sats >/=90%
Pulse Ox/spot Check [RESP] Urgent
Quantity: 1
Special Instructions: ON ROOM AIR
11/08/24 23:42
Complete Blood Count/With Diff Urgent
Comprehensive Metabolic Panel Urgent
Troponin I Urgent
11/09/24 00:24
Nitroglycerin Ointment [Nitro-Bid] 1 inch TOPICAL NOW STA
11/09/24 00:39
PTT Urgent
11/09/24 01:22
Electrocardiogram (*1) Urgent
Reason for Study: Abnormal EKG
EKG- Treatment ONCE
11/09/24 02:00
Troponin I Urgent
Abnormal Lab Results
11/08/24
23:42
RBC 4.24 L 10^6/uL
(4.70-6.10)
Hgb 12.1 L g/dL
(13.0-18.0)
Hct 36.0 L %
(39.0-52.0)
Monocytes % 9.4 H %
(1.7-9.3)
Chloride 114 H mmol/L
(98-107)
BUN 27 H mg/dl
(9-20)
Glucose 109 H mg/dl
(70-99)
11/08/24 23:42
11/08/24 23:42
Vital Signs
Initial and Last Documented VS:
Initial Vital Signs
Temp Pulse Resp BP Pulse Ox
98.0 F 73 24 129/78 93
11/08/24 23:27 11/08/24 23:27 11/08/24 23:27 11/08/24 23:27 11/08/24 23:27
Last Documented Vital Signs
Temp Pulse Resp BP Pulse Ox
98.0 F 79 26 143/74 96
11/08/24 23:27 11/09/24 01:00 11/09/24 01:00 11/09/24 01:00 11/09/24 00:45
MDM/Problems Addressed
Differential Diagnosis Includes:
Significant concern for ACS, non-STEMI
Less likely GERD, chest wall pain, pericarditis, pneumonia, pleurisy.
Currently pain-free and comfortable and EKG has normalized.
Will check troponin and routine labs.
Will place Nitropaste and consider IV heparin.
Due to extensive history of CAD, EKG changes with chest pain which have since normalized patient will likely require acute hospitalization for further evaluation.
Chronic conditions affecting care: HTN, CAD and Other (Hyperlipidemia)
Acute Exacerbation and/or Progression of Chronic Illness: CAD
*Pulse Oximetry
SaO2: 93
Oxygen Mode of Delivery: Room air
Patient hypoxic: no
*EKG
Interpreted by ED Provider?: Yes
Interpretation: normal
Rate: normal
Rhythm: sinus
[place]: normal axis
Interval: normal interval
QRS Pattern: normal QRS
Ischemia: no ischemia
*Technical Clerk Interpretation
Rate: normal
Interpretation: normal
Rhythm: sinus
*Critical Care Note
Total Time (30-74mins, 75-104mins- exclusive of procedures): 30
comment:
Critical care statement: A total of 30 minutes of critical care time was provided for this patient. This includes management of unstable vital signs, evaluation of the patient at bedside, reviewing the patient's pertinent medical records, discussion
with consultants, review of old EKGs and review of pertinent medical records. This time with separate from time utilized to perform the aforementioned documented procedures
Update Note
Update Note:
Patient remains chest pain-free and comfortable.
Initial troponin 0.026. Will continue to trend.
Lengthy discussion with patient that I highly suspect acute coronary syndrome especially with EKG changes with chest pressure which have normalized with resolution of chest pain.
He is agreeable to remain in the hospital for continued evaluation.
Will initiate IV heparin, continue to trend troponin and admit to hospitalist service.
Cardiology, Dr. Burris, has been notified as well.
ED Attending Note
-
Portions of this chart may have been created with voice recognition software.� Occasional wrong word or��sound alike� substitutions may have occurred due to the inherent limitations of voice recognition software.
Discharge Plan
Departure
Patient Disposition: Admit
Date of Disposition: 11/09/24
Time of Disposition: 01:36
Admit to: Telemetry
Admit to doctor: Wes
Presentation/result/management discussed w/ accepting MD/DO: Hospitalist
Condition: Serious
Discharge Problem:
Acute coronary syndrome
Prescriptions:
No Action
bismuth subsalicylate [Pepto-Bismol] 262 mg/15 mL Suspension
1,048 mg PO HSPRN PRN (Reason: HEARTBURN)
Patient Comments:
06/02/24: PATIENT STATES HE TOOK HALF A BOTTLE OF PEPTO BISMOL LIQUID two night in a row
atorvastatin 80 mg tablet
40 mg PO QPM
lisinopril 20 mg tablet
20 mg PO QPM Qty: 30 0RF
clopidogrel 75 mg Tablet
75 mg PO QPM Qty: 30 0RF
amlodipine 5 mg tablet
5 mg PO QPM Qty: 30 0RF
metoprolol succinate 25 mg tablet extended release 24 hr
25 mg PO QPM Qty: 30 0RF
Referrals:
Irwin Hein MD [Family Provider, Internal Medicine]
Interventions
Interventions:
*Risk Screen - Suicide Last Done: 11/08/24 23:33
*General Assessment Last Done: 11/08/24 23:33
*Neglect/Abuse Screening Last Done: 11/08/24 23:33
*ED- Fall Risk Assessment Last Done: 11/08/24 23:33
*ED COVID-19 Vaccine History Last Done: 11/08/24 23:33
Discharge Date and Time
Print Language: ESTONIAN
[2024-11-09] MEDS: NITRO-BID 1 INCH TOPICAL (00:28)
[2024-11-09 00:57] LABS: APTT 24.2 Sec (23.4-35.0)
[2024-11-09 02:11] LABS: Troponin I 0.030 ng/ml
--- NOTE | 2024-11-09 02:43 | HPS.HSE ---
Family Physician
-
Family Physician: Irwin Hein
Chief Complaint
-
Chest pain
History of Present Illness
This is a 84-year-old male with past medical history significant for CAD status post prior NSTEMI and left circumflex stent in May, LAD stent in March, obtuse marginal stenting 2019 and 7 stents total, BPH, hyperlipidemia, hypertension, GERD,
tobacco dependence presenting to the emergency department with chest pain.
Patient reported chest pressure tonight. No nausea vomiting diaphoresis or shortness of breath. He took a dose of aspirin and then called EMS. En route to the emergency department he received nitroglycerin x 3. By time he arrives in the
emergency department patient is chest pain-free. His ECG was initially with ST depressions in anterior leads according to EMS out of hospital ECG. Repeat ECG in the emergency department at normalized.
Reported that he stopped taking asa 81 for a while and recently started 1 -2 days ago. Denies having any melena/hematochezia.
In the emergency department his blood pressure was 128/61 with pulse of 51 and he was satting 98% on room air. He was afebrile. ECG shows a normal sinus rhythm at a rate of [address] or T wave changes. Repeat ECG was also unremarkable
with slight ST depression DOWNSLOPING ST segments in V4 through 6.
Troponin was 0.026 on the first and on repeat 0.03. CBC was unremarkable, electrolytes BUN and creatinine were normal.
Medical History
Past Medical History
Past Medical History: Reports Other (prior NSTEMI post left circumflex stent in May, LAD stent in March, obtuse marginal stenting 2019 and 7 stents total, CAD, COPD, hypercholesterolemia, TIA, hypertension, BPH status post TURP, hiatal hernia)
Past Surgical History: Reports None
Social History
Tobacco: Smoker
Alcohol: None
Drug: None
Family History
Family History: Not pertinent
Allergies / Home Medications
Allergies reflects when Allergies were last updated in [facility].
Home Medications with original date entered in [facility]
Allergy/Medication List:
Allergies
Allergy/AdvReac Type Severity Reaction Status Date / Time
No Known Allergies Allergy Verified 08/31/23 19:59
Home Medications
aspirin 81 mg tablet,delayed release 81 mg PO QPM Blood Clot Prevention/Tx 04/06/23
clopidogrel 75 mg tablet 75 mg PO QPM Blood Clot Prevention/Tx 04/06/23
metoprolol succinate 50 mg tablet,extended release 24 hr 50 mg PO QPM Heart Failure 05/07/23
lisinopril 20 mg tablet 20 mg PO QPM Blood Pressure 06/02/23
atorvastatin 80 mg tablet 80 mg PO QPM High cholesterol #90 tabs 06/05/23
amlodipine 5 mg tablet 5 mg PO QPM 08/31/23
Review of Systems
-
Constitutional: Reports No Symptoms
EENT: Reports No Symptoms
Respiratory: Reports No Symptoms
Cardiac: Reports Chest Pain
Abdomen/GI: Reports No Symptoms
: Reports No Symptoms
Musculoskeletal: Reports No Symptoms
Skin: Reports No Symptoms
Neurological: Reports No Symptoms
Endocrine: Reports No Symptoms
Hematologic/Lymphatic: Reports No Symptoms
Psych: Reports No Symptoms
Physical Exam
Vital Signs
Vital Signs
Temp Pulse Resp BP Pulse Ox
98.0 F 51 15 128/67 94
11/08/24 23:27 11/09/24 02:15 11/09/24 02:15 11/09/24 02:00 11/09/24 02:15
Physical Exam
General: Well Developed, Well Nourished, No Apparent Distress, Comfortable and Conversant
HEENT: NormoCephalic, Moist mucous membranes and Atraumatic
Respiratory: Clear and Non Labored Respirations; No Accessory Resp Muscle Use
Cardiac: S1/S2 and Regular Rhythm; No Murmur or Rub
GI: Soft, Non Tender, Non Distended and Normal Bowel Sounds; No Organomegaly
Rectal: Deferred by Provider
Musculoskeletal: No Clubbing and No Cyanosis
Skin: No Rash
Neuro: Awake and Alert
Psych: Calm and Intact Judgment/Insight
Laboratory Results
-
11/08/24 23:42
11/08/24 23:42
Laboratory Results
APTT 24.2 Sec (23.4-35.0) 11/09/24 00:39
Total Bilirubin 0.4 mg/dl (0.2-1.3) 11/08/24 23:42
AST 24 U/L (17-59) 11/08/24 23:42
ALT 14 U/L (0-50) 11/08/24 23:42
Alkaline Phosphatase 48 U/L (38-126) 11/08/24 23:42
Troponin I 0.030 ng/ml 11/09/24 01:31
Data Reviewed
-
Medical Tests (Nuc Med, Echo, EKG etc): Image Personally Visualized and interpreted
Lab Data: Labs Reviewed by me
Old Records: Reviewed
Impression/Plan
-
IMPRESSION:
84 y.o smoker with h/o CAD s/p multiple stents with most recent PCI 05/2023 with stenting to L circ presenting with substernal chest pain and dynamic ECG changes. Had CP with outside hospital ECG showing anterior ST depression. CP and ECG changes
resolved with SL-nitro x 3. Currently CP free. Similar episode on 09/22 and left AMA at that time. His troponin is 0.026 then 0.03. He reports compliance with medications.
PLAN:
Chest pain - ACS w/o AR at this time. Free of CP.
- admit to telemetry
- repeat cardiac enzymes
- echo in am
- continue asa, continue plavix/statin
- ntg topical applied
- cardiology consultation
HTN
- continue metoprolol, lisinopril and norvasc
DVT PPX - lovenox sq
Code status - Full Code
--- NOTE | 2024-11-09 05:46 | PTCARENOTE ---
Pt received from ED via stretcher. Ambulated to bed independently w/o incident. Telemetry initiated - SB w/1st degree. AAOx3, pleasant. Pt denies chest pain at present. Oriented to surroundings and plan of care discussed. Admission and
assessment completed. R lower anterior leg had tick embedded, removed in ED, small open pink wound ADMISSIONS COORDINATOR. Bilateral LE w/grafting and scars from del real. L eye ? broken blood vessels, denies visual disturbance. RUE w/nitro paste. #18 LAC INT patent.
Med rec verified. Troponin level sent. Offers no complaints, call la w/in reach.
[2024-11-09 06:06] LABS: Troponin I 0.043 ng/ml
--- NOTE | 2024-11-09 06:12 | PTCARENOTE ---
Troponin 0.043, TT to METEOROLOGY TEACHER covering house.
[2024-11-09] MEDS: LOW STRENGTH ASPIRIN 81 MG PO (08:27)
--- NOTE | 2024-11-09 09:10 | W.PN.HOSP.TC ---
Today's Communication/Plan
-
Monitor troponin.
Monitor for chest pain
Assessment / Plan
Assessment / Plan
Impression:
84 y.o smoker with h/o CAD s/p multiple stents with most recent PCI 05/2023 with stenting to L circ presenting with substernal chest pain and dynamic ECG changes. Had CP with outside hospital ECG showing anterior ST depression. CP and ECG changes
resolved with SL-nitro x 3. Currently CP free. Similar episode on 09/22 and left AMA at that time. His troponin is 0.026 then 0.03. He reports compliance with medications.
Assessment/plan:
Chest pain - ACS w/o IL at this time. Free of CP.
Currently chest pain-free.
Continue monitor and storage bin tender.
Seen by cardiology.
Added Imdur, increase Norvasc and have started Ranexa
Monitor troponin and if markedly elevated to consider cardiac cath
Hypertension
- continue metoprolol, lisinopril and norvasc
History of hyperlipidemia.
Continue atorvastatin
CODE STATUS: Full code
DVT prophylaxis: Lovenox
Diet: Regular diet
Disposition: Continue to monitor troponin
Total time spent on today's encounter was 65 minutes which included time spent in counseling the patient/family regarding diagnosis and treatment plan as listed above, goals of care, and symptom management. Case was discussed with nursing staff,
specialists, and care coordinators/case management. All labs and imaging personally reviewed by me. Remainder the time spent in detailed review of previous records, lab data, imaging, and other medical provider documentation.
Anticipated Discharge: 24 - 48 hours
Subjective/Interval History
-
Date of Service: November 09, 2024
Patient seen and examined at bedside, denies any chest pain or shortness of breath, no abdominal pain, no nausea, no vomiting, no diarrhea or constipation.
Objective Data
-
Labs:
Laboratory Results
11/08/24 11/09/24
23:42 00:39
WBC 6.0
Hgb 12.1 L
Hct 36.0 L
Plt Count 214
APTT 24.2
Sodium 143
Potassium 4.6
Chloride 114 H
Carbon Dioxide 24
BUN 27 H
Creatinine 0.9
Glucose 109 H
Calcium 8.5
Total Bilirubin 0.4
AST 24
ALT 14
Alkaline Phosphatase 48
Vital Signs:
Vital Signs
Temp Pulse Resp BP Pulse Ox
98.1 F 61 12 143/67 96
11/09/24 07:30 11/09/24 07:30 11/09/24 07:30 11/09/24 07:30 11/09/24 07:30
Physical Exam
-
General: Well Developed, Well Nourished, No Apparent Distress and Comfortable
HEENT: Normocephalic, Atraumatic, Moist Mucous Membranes, No Ptosis, PERRLA and Nose Appears Normal
Respiratory: Clear to Auscultation and Non Labored Respirations
Cardiac: Regular Rhythm and S1/S2
Breast: Deferred by me
GI: Soft, Nontender, Nondistended and Normal Bowel Sounds
Genito-urinary: No Costovertebral Tender
Musculoskeletal: No Clubbing, No Cyanosis and No Edema
Skin: Warm
Neuro: Awake, Alert, Oriented, AO x 3 and No Motor Deficits
Psych: Calm
Data Reviewed
-
Diagnostic Radiology: Image personally visualized and interpreted and Report Reviewed by me
CT Scan: Image personally visualized and interpreted and Report Reviewed by me
Ultrasound: Image personally visualized and interpreted and Report Reviewed by me
MRI: Image personally visualized and interpreted and Report Reviewed by me
Medical Tests (Nuc Med, Echo etc): Image personally visualized and interpreted and Report Reviewed by me
Labs: Labs Reviewed by me
Old Records: Reviewed
[2024-11-09 09:41] LABS: Troponin I 0.045 ng/ml
--- NOTE | 2024-11-09 09:46 | CON.CAR ---
Consultation
Consultation Request
Date/Time Consultation Requested: 11/08/2024 23: 00
Date/Time Consultation Performed: 11/08/2024 9: 00
Requesting Provider: Darlin
Performing Provider: [place]
Reason for Consultation: Chest pain
Medical History
-
Chief Complaint: Chest discomfort
History of Present Illness:
Randy has long coronary history, including LAD stent 2015, mid LAD stent March 2023, ostial proximal circumflex stent May 2023, JEWELRY BENCH MOLDER of RCA. He was admitted in August 2023 with chest discomfort and was treated medically.
He is admitted with chest pain and elevated troponin. Last night he developed crushing chest pain and he took 4 baby aspirin. He could not find nitroglycerin. With persistent pain came to the ER and is admitted as troponins were elevated. Denies
chest pain at the present time. He was in the ED in August 2024 with chest discomfort and signed out AMA.
Past Medical History
Past Medical History: CAD (JEWELRY BENCH MOLDER of RCA, 75% mid circumflex, with orbital atherectomy and LAD Promus stent 2015, mid LAD Xience stent April 18, Aaron stent to proximal circumflex May 2023), CVA (TIA with left vertebral stenosis 2013), HTN,
Hypercholesterolemia and Other (Degenerative disc disease, history of extensive del real as a child)
Past Surgical History: Urological (Renal stone extraction) and Other (Extensive del real as a child)
Social History
Tobacco: Smoker (3 cigars/day)
Drug: None
Personal: Single
Living: Alone
Employment: Retired
Family History
Family History: Other (Father at 50 of liver cancer)
Allergies / Home Medications
Allergy/AdvReac Type Severity Reaction Status Date / Time
No Known Allergies Allergy Verified 11/08/24 23:32
�Medication �Instructions �Recorded �Confirmed �Type
amlodipine 5 mg tablet 5 mg PO QPM Blood pressure #30 tabs 11/02/23 11/09/24 Rx
clopidogrel 75 mg tablet 75 mg PO QPM Blood Clot 11/02/23 11/09/24 Rx
Prevention/Tx #30 tabs
lisinopril 20 mg tablet 20 mg PO QPM Blood Pressure #30 11/02/23 11/09/24 Rx
tabs
metoprolol succinate 25 mg 25 mg PO QPM Heart 11/02/23 11/09/24 Rx
tablet,extended release 24 hr disease/condition #30 tabs
atorvastatin 80 mg tablet 40 mg PO QPM High cholesterol 06/02/24 11/09/24 History
Review of Systems
-
History Source: Patient
All other systems: Negative unless noted
Constitutional: No Symptoms
EENT: No Symptoms
Respiratory: No Symptoms
Cardiac: Chest Pain
Abdomen/GI: No Symptoms
: Other (Erectile dysfunction)
Musculoskeletal: No Symptoms
Skin: No Symptoms
Neurological: No Symptoms
Endocrine: No Symptoms
Hematologic/Lymphatic: No Symptoms
Physical Exam
Vital Signs
Temp Pulse Resp BP Pulse Ox
98.1 F 61 12 143/67 96
11/09/24 07:30 11/09/24 07:30 11/09/24 07:30 11/09/24 07:30 11/09/24 07:30
Lab Results
11/08/24 23:42
11/08/24 23:42
Troponin I 0.045 ng/ml H* 11/09/24 08:17
General: Well developed, well nourished in NAD.
Neck: Supple, no JVD, HJR, carotids +2 B/L, no bruits bilaterally.
Heart: Non displaced PMI, RRR, no murmurs, No S3, S4, no rubs.
Lungs: Scattered rhonchi
Abdomen: Normal bowel sounds, soft, non-tender, non-distended.
Extremities: No clubbing, cyanosis or edema bilaterally.
Neuro: Grossly nonfocal, awake, alert and oriented x3.
Impression / Plan
-
PCP: Dr. Hein
Cardiology: Dr. Burris
Impression:
Chest pain/elevated troponin
CAD
NSTEMI with JEWELRY BENCH MOLDER RCA and 75% mid Circ but turned down to CABG due to lack of conduits and had orbital atherectomy with Promus drug-eluting stent to mid LAD 07/2015
NSTEMI and 3.25 mm Xience to mid LAD 04/09/23
NSTEMI and 2.5 mm [place] to ostial-prox Circ, patent mid LAD stent, JEWELRY BENCH MOLDER RCA by cath 06/04/23Cerebrovascular disease, history of TIA 2013
Left vertebral artery stenosis
Carotid ultrasound with <50% bilateral stenosis 2016Degenerative disc diseaseHistory of lower extremity del real
Hypertension
Hypercholesterolemia
Tobacco use
Noncompliance
Echo 04/09/2023: Ejection fraction 55 to 60%
Plan:
He presents with chest discomfort and minimally elevated troponin which appears relatively stable at 0.045
In the past he has been reluctant to take medication specifically nitrates because of Viagra but is using a different method for erectile dysfunction currently
Will add Imdur, double Norvasc, and restart Ranexa which he was on in the past. If persistent pain or troponins become markedly elevated will consider cardiac catheterization.
Data Reviewed
-
EKG: Tracing Personally Visualized and interpreted
Radiology: Report Reviewed by me
Medical Tests (Nuc Med, Echo etc): Report Reviewed by me
Labs: Labs Reviewed by me
Old Records: Reviewed
[2024-11-09] MEDS: IMDUR (EXTENDED RELEASE) 30 MG PO (11:16)
[2024-11-09] MEDS: RANEXA EXTENDED RELEASE 500 MG PO ×2 (11:16→20:15)
--- NOTE | 2024-11-09 16:11 | CM ---
Patient seen bedside, initial assessment completed. Patient is a 84-year-old male with past medical history significant for CAD status post prior NSTEMI and left circumflex stent in May, LAD stent in March, obtuse marginal stenting 2019 and 7
stents total, BPH, hyperlipidemia, hypertension, GERD, tobacco dependence presenting to the emergency department with chest pain.
Patient resides alone in a 2sty split level home, 2 steps to enter from the outside. Patient is independent w/ ambulation, no device required. Independent w/ ADLs. No DME reported. KANDI MCHUGH last year. No HC hx reported.
Address, point of contact and insurance verified
PCP: Irwin Hein
Pharmacy: [facility] [place]
Patient admitted obs status. LIU form verbally reviewed, copy provide, copy on chart
Plan: Anticipating home, no needs
[2024-11-09] MEDS: LIPITOR 40 MG PO (17:17)
[2024-11-09] MEDS: ZESTRIL 20 MG PO (17:17)
[2024-11-09] MEDS: PLAVIX 75 MG PO (17:18)
[2024-11-09] MEDS: TOPROL XL 50 MG PO (17:18)
[2024-11-09] MEDS: LOVENOX SC ×2 (17:18→17:22)
[2024-11-09] MEDS: NORVASC 10 MG PO (17:19)
[2024-11-10 03:22] VITALS: BP 132/69
[2024-11-10 07:27] LABS: Hematocrit 34.6 % (39.0-52.0); Hemoglobin 11.4 g/dL (13.0-18.0); Mean Corp Hgb Conc. 32.9 g/dL (33.0-37.0); Mean Corpuscular Volume 86.7 fL (80.0-94.0); Platelet Count 197 10^3/uL (130-400); Red Cell Dist. Width 13.7 % (11.5-14.5)
[2024-11-10 07:40] VITALS: BP 140/83
[2024-11-10 08:00] LABS: Troponin I 0.018 ng/ml
[2024-11-10] MEDS: IMDUR (EXTENDED RELEASE) 30 MG PO (08:55)
[2024-11-10] MEDS: RANEXA EXTENDED RELEASE 500 MG PO ×2 (08:56→20:29)
[2024-11-10] MEDS: LOW STRENGTH ASPIRIN 81 MG PO (08:56)
--- NOTE | 2024-11-10 09:23 | CM ---
Chart reviewed and patient was admitted under OBS, plan is to home alone when stable.
Plan; Home alone when stable.
[2024-11-10 11:15] VITALS: BP 135/66
--- NOTE | 2024-11-10 11:23 | W.PN.CARDCBS ---
Today's Communication / Plan
-
Imdur added with improvement and Norvasc increased.
Ranexa was resumed.
Check echo to reeval EF. If he remains cp free and EF preserved on cath, would consider continued medical management.
otherwise can consider cath.
Impression / Plan
-
PCP: Dr. Hein
Cardiology: Dr. Burris
Impression:
Chest pain/elevated troponin, peak 0.045 and normalized.
CAD
NSTEMI with [employer] RCA and 75% mid Circ but turned down to CABG due to lack of conduits and had orbital atherectomy with Promus drug-eluting stent to mid LAD 07/2015
NSTEMI and 3.25 mm Xience to mid LAD 04/09/23
NSTEMI and 2.5 mm Aaron to ostial-prox Circ, patent mid LAD stent, [employer] RCA by cath 06/04/23Cerebrovascular disease, history of TIA 2013
Left vertebral artery stenosis
Carotid ultrasound with <50% bilateral stenosis 2017Degenerative disc diseaseHistory of lower extremity del real
Hypertension
Hypercholesterolemia
Tobacco use
Noncompliance
Echo 04/09/2023: Ejection fraction 55 to 60%
Plan:
He presented with chest discomfort and minimally elevated troponin which peaked and was stable at 0.045 and has normalized. In the past he has been reluctant to take medication specifically nitrates because of Viagra but is using a different method
for erectile dysfunction currently
Imdur added with improvement and Norvasc increased.
Ranexa was resumed.
Check echo to reeval EF. If he remains cp free and EF preserved on cath, would consider continued medical management.
otherwise can consider cath.
HPI: Randy has long coronary history, including LAD stent 2015, mid LAD stent March 2023, ostial proximal circumflex stent May 2023, [employer] of RCA. He was admitted in August 2023 with chest discomfort and was treated medically.
He is admitted with chest pain and elevated troponin. Last night he developed crushing chest pain and he took 4 baby aspirin. He could not find nitroglycerin. With persistent pain came to the ER and is admitted as troponins were elevated. Denies
chest pain at the present time. He was in the ED in August 2024 with chest discomfort and signed out AMA.
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
Subjective
Date of Service: November 10, 2024
Pt seen and examined. no cp or dyspnea.
Objective
Labs:
11/10/24 07:15
11/08/24 23:42
Labs
Hgb 11.4 g/dL (13.0-18.0) L 11/10/24 07:15
Hct 34.6 % (39.0-52.0) L 11/10/24 07:15
Plt Count 197 10^3/uL (130-400) 11/10/24 07:15
APTT 24.2 Sec (23.4-35.0) 11/09/24 00:39
Sodium 143 mmol/L (135-145) 11/08/24 23:42
Potassium 4.6 mmol/L (3.5-5.1) 11/08/24 23:42
BUN 27 mg/dl (9-20) H 11/08/24 23:42
Creatinine 0.9 mg/dL (0.7-1.3) 11/08/24 23:42
Glucose 109 mg/dl (70-99) H 11/08/24 23:42
Troponins
11/08/24 11/09/24 11/09/24
23:42 01:31 05:19
Troponin I 0.026 0.030 0.043 H* D
11/09/24 11/09/24 11/10/24
08:00 08:17 07:15
Troponin I Cancelled 0.045 H* 0.018
Vital Signs and I&O:
Vital Signs
Temp Pulse Resp BP Pulse Ox
98.6 F 53 20 135/66 97
11/10/24 11:15 11/10/24 11:15 11/10/24 11:15 11/10/24 11:15 11/10/24 11:15
Vital Signs
Temp Pulse Resp BP Pulse Ox
98.6 F 53 20 135/66 97
11/10/24 11:15 11/10/24 11:15 11/10/24 11:15 11/10/24 11:15 11/10/24 11:15
Intake & Output
11/08/24 11/09/24 11/10/24 11/11/24
06:59 06:59 06:59 06:59
Intake Total 240 / 240
Balance 240 / 240
Physical Exam
Physical Exam
General: No acute distress, AAOX3
Neck: Negative JVD
Heart: Regular, Negative S3 positive S1/S2, Negative S4, No murmur
Lungs: CTA b/l, negative wheezes/rales/rhonchi
Abd: Positive BS, NT/ND, neg rebound/rigidity/guarding
Ext: Negative cyanosis/clubbing/edema
Neuro: nonfocal
--- NOTE | 2024-11-10 14:55 | W.PN.HOSP.TC ---
Today's Communication/Plan
-
Pending echo, discharge if cleared by cardio.
Assessment / Plan
Assessment / Plan
Impression:
84 y.o smoker with h/o CAD s/p multiple stents with most recent PCI 05/2023 with stenting to L circ presenting with substernal chest pain and dynamic ECG changes. Had CP with outside hospital ECG showing anterior ST depression. CP and ECG changes
resolved with SL-nitro x 3. Currently CP free. Similar episode on 09/22 and left AMA at that time. His troponin is 0.026 then 0.03. He reports compliance with medications.
Seen by cardiology, adjusted cardiac med
Assessment/plan:
Chest pain - ACS w/o MS at this time. Free of CP.
Currently chest pain-free.
Continue court recording monitor.
Seen by cardiology.
Added Imdur, increase Norvasc and have started Ranexa
Monitor troponin and if markedly elevated to consider cardiac cath
Troponin level improved
Pending echo
Hypertension
- continue metoprolol, lisinopril and norvasc
History of hyperlipidemia.
Continue atorvastatin
CODE STATUS: Full code
DVT prophylaxis: Lovenox
Diet: Regular diet
Disposition: Pending echo, discharge if cleared by cardio.
Family communication: Discussed with son admit
Total time spent on today's encounter was 65 minutes which included time spent in counseling the patient/family regarding diagnosis and treatment plan as listed above, goals of care, and symptom management. Case was discussed with nursing staff,
specialists, and care coordinators/case management. All labs and imaging personally reviewed by me. Remainder the time spent in detailed review of previous records, lab data, imaging, and other medical provider documentation.
Anticipated Discharge: Within 24 hours
Subjective/Interval History
-
Date of Service: November 10, 2024
Patient seen and examined at bedside, denies any chest pain or shortness of breath, no abdominal pain, no nausea, no vomiting, no diarrhea or constipation, discussed with family
Objective Data
-
Labs:
Laboratory Results
11/10/24
07:15
WBC 5.7
Hgb 11.4 L
Hct 34.6 L
Plt Count 197
Vital Signs:
Vital Signs
Temp Pulse Resp BP Pulse Ox
98.6 F 53 20 135/66 97
11/10/24 11:15 11/10/24 11:15 11/10/24 11:15 11/10/24 11:15 11/10/24 11:15
I&O
11/09/24 11/10/24 11/11/24
06:59 06:59 06:59
Intake Total 240 / 240
Balance 240 / 240
Physical Exam
-
General: Well Developed, Well Nourished, No Apparent Distress and Comfortable
HEENT: Normocephalic, Atraumatic, Moist Mucous Membranes, No Ptosis, PERRLA and Nose Appears Normal
Respiratory: Clear to Auscultation and Non Labored Respirations
Cardiac: Regular Rhythm and S1/S2
Breast: Deferred by me
GI: Soft, Nontender, Nondistended and Normal Bowel Sounds
Genito-urinary: No Costovertebral Tender
Musculoskeletal: No Clubbing, No Cyanosis and No Edema
Skin: Warm and Lesions (Left lower extremity scar)
Neuro: Awake, Alert, Oriented, AO x 3 and No Motor Deficits
Psych: Calm
[2024-11-10 15:33] VITALS: BP 137/66
[2024-11-10] MEDS: LIPITOR 40 MG PO (17:03)
[2024-11-10] MEDS: PLAVIX 75 MG PO (17:03)
[2024-11-10] MEDS: LOVENOX 40 MG SC (17:03)
[2024-11-10] MEDS: ZESTRIL 20 MG PO (17:05)
[2024-11-10] MEDS: NORVASC 10 MG PO (17:09)
[2024-11-10] MEDS: TOPROL XL PO (17:45)
[2024-11-10 19:39] VITALS: BP 118/68
[2024-11-10 23:20] VITALS: BP 120/59
[2024-11-11] VITALS (7 sets, daily range): BP systolic 124–174; BP diastolic 67–87
[2024-11-11] MEDS: LOW STRENGTH ASPIRIN 81 MG PO (08:07)
[2024-11-11] MEDS: IMDUR (EXTENDED RELEASE) 30 MG PO (08:07)
[2024-11-11] MEDS: RANEXA EXTENDED RELEASE 500 MG PO ×2 (08:08→19:52)
--- NOTE | 2024-11-11 09:51 | W.PN.CARDCBS ---
Today's Communication / Plan
-
Imdur added with improvement and Norvasc increased.
Ranexa was resumed.
He had an episode of cp PM Nov 10 but did not tell anyone.
Check EKG and troponin Nov 11 AM. If he has any further cp may need to consider left heart cath.
Echo reviewed with pt and shows preserved EF
Toprol was held for bradycardia. Resume Toprol at 25 mg qHS this PM Nov 10.
Discussed with primary service and nursing.
Impression / Plan
-
PCP: Dr. Hein
Cardiology: Dr. Burris
Impression:
Chest pain/elevated troponin, peak 0.045 and normalized.
CAD
NSTEMI with PHYSICAL THERAPIST AIDE RCA and 75% mid Circ but turned down to CABG due to lack of conduits and had orbital atherectomy with Promus drug-eluting stent to mid LAD 07/2015
NSTEMI and 3.25 mm Xience to mid LAD 04/09/23
NSTEMI and 2.5 mm Aaron to ostial-prox Circ, patent mid LAD stent, PHYSICAL THERAPIST AIDE RCA by cath 06/04/23Cerebrovascular disease, history of TIA 2013
Left vertebral artery stenosis
Carotid ultrasound with <50% bilateral stenosis 2017Degenerative disc diseaseHistory of lower extremity del real
Hypertension
Hypercholesterolemia
Tobacco use
Noncompliance
Echo 04/09/2023: Ejection fraction 55 to 60%
Plan:
He presented with chest discomfort and minimally elevated troponin which peaked and was stable at 0.045 and has normalized. In the past he has been reluctant to take medication specifically nitrates because of Viagra but is using a different method
for erectile dysfunction currently
Imdur added with improvement and Norvasc increased.
Ranexa was resumed.
He had an episode of cp PM Nov 10 but did not tell anyone.
Check EKG and troponin Nov 11. If he has any further cp may need to consider left heart cath.
Echo reviewed with pt and shows preserved EF
Toprol was held for bradycardia. Resume Toprol at 25 mg qHS this PM Nov 10.
Discussed with primary service and nursing.
HPI: Randy has long coronary history, including LAD stent 2015, mid LAD stent March 2023, ostial proximal circumflex stent May 2023, PHYSICAL THERAPIST AIDE of RCA. He was admitted in August 2023 with chest discomfort and was treated medically.
He is admitted with chest pain and elevated troponin. Last night he developed crushing chest pain and he took 4 baby aspirin. He could not find nitroglycerin. With persistent pain came to the ER and is admitted as troponins were elevated. Denies
chest pain at the present time. He was in the ED in August 2024 with chest discomfort and signed out AMA.
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
Subjective
Date of Service: November 11, 2024
Pt seen and examined. No complaints. No chest pain or shortness of breath. He states he had cp last PM but did not tell anyone. No recurrent cp.
Objective
Labs:
11/10/24 07:15
11/08/24 23:42
Labs
Hgb 11.4 g/dL (13.0-18.0) L 11/10/24 07:15
Hct 34.6 % (39.0-52.0) L 11/10/24 07:15
Plt Count 197 10^3/uL (130-400) 11/10/24 07:15
APTT 24.2 Sec (23.4-35.0) 11/09/24 00:39
Sodium 143 mmol/L (135-145) 11/08/24 23:42
Potassium 4.6 mmol/L (3.5-5.1) 11/08/24 23:42
BUN 27 mg/dl (9-20) H 11/08/24 23:42
Creatinine 0.9 mg/dL (0.7-1.3) 11/08/24 23:42
Glucose 109 mg/dl (70-99) H 11/08/24 23:42
Troponins
11/08/24 11/09/24 11/09/24
23:42 01:31 05:19
Troponin I 0.026 0.030 0.043 H* D
11/09/24 11/09/24 11/10/24
08:00 08:17 07:15
Troponin I Cancelled 0.045 H* 0.018
Vital Signs and I&O:
Vital Signs
Temp Pulse Resp BP Pulse Ox
98.8 F 65 20 132/74 97
11/11/24 07:40 11/11/24 09:18 11/11/24 07:40 11/11/24 09:18 11/11/24 07:40
Vital Signs
Temp Pulse Resp BP Pulse Ox
98.8 F 65 20 132/74 97
11/11/24 07:40 11/11/24 09:18 11/11/24 07:40 11/11/24 09:18 11/11/24 07:40
Intake & Output
11/09/24 11/10/24 11/11/24 11/12/24
06:59 06:59 06:59 06:59
Intake Total 240 / 240 1040 / 1040
Balance 240 / 240 1040 / 1040
Physical Exam
Physical Exam
General: No acute distress, AAOX3
Neck: Negative JVD
Heart: Regular, Negative S3 positive S1/S2, Negative S4, No murmur
Lungs: CTA b/l, negative wheezes/rales/rhonchi
Abd: Positive BS, NT/ND, neg rebound/rigidity/guarding
Ext: Negative cyanosis/clubbing/edema
Neuro: nonfocal
[2024-11-11 11:02] LABS: Troponin I < 0.012 ng/ml
--- NOTE | 2024-11-11 12:07 | W.PN.HOSP.TC ---
Today's Communication/Plan
-
Cardiology recommending monitor for additional day and if more chest pain to keep n.p.o. for possible cardiac cath in am
Assessment / Plan
Assessment / Plan
Impression:
84 y.o smoker with h/o CAD s/p multiple stents with most recent PCI 05/2023 with stenting to L circ presenting with substernal chest pain and dynamic ECG changes. Had CP with outside hospital ECG showing anterior ST depression. CP and ECG changes
resolved with SL-nitro x 3. Currently CP free. Similar episode on 09/22 and left AMA at that time. His troponin is 0.026 then 0.03. He reports compliance with medications.
Seen by cardiology, adjusted cardiac med
11/11
Patient had chest pain last night, monitor for additional day and keep n.p.o. after midnight.
Assessment/plan:
Chest pain - ACS w/o PR at this time.
Currently chest pain-free.
Continue classroom monitor.
Seen by cardiology.
Added Imdur, increase Norvasc and have started Ranexa
Monitor troponin and if markedly elevated to consider cardiac cath
Troponin level improved
echo shows:
1. Aortic valve is tri-leaflet. There is mild multiple aortic cusp thickening. Mild aortic regurgitation.
2. Compared to a prior transthoracic echocardiogram study from 03/30/23 no significant changes are seen.
3. Left ventricle is normal in size and function.
4. Aortic annulus is mildly dilated.
5. Indexed left atrial volume is severely abnormal (>48 ml/m2).
6. Mild left ventricular hypertrophy.
11/11
Patient again developed chest pain last night which is mild.
Cardiology recommending monitor for additional day and if more chest pain to keep n.p.o. for possible cardiac cath in am
Hypertension
- continue metoprolol, lisinopril and norvasc
History of hyperlipidemia.
Continue atorvastatin
CODE STATUS: Full code
DVT prophylaxis: Lovenox
Diet: Regular diet
Disposition: Cardiology recommending monitor for additional day and if more chest pain to keep n.p.o. for possible cardiac cath in am
Family communication: Discussed with son admit
Total time spent on today's encounter was 65 minutes which included time spent in counseling the patient/family regarding diagnosis and treatment plan as listed above, goals of care, and symptom management. Case was discussed with nursing staff,
specialists, and care coordinators/case management. All labs and imaging personally reviewed by me. Remainder the time spent in detailed review of previous records, lab data, imaging, and other medical provider documentation.
Anticipated Discharge: Within 24 hours
Subjective/Interval History
-
Date of Service: November 11, 2024
Had a chest pain last night, cardiology recommended to continue monitoring.
Objective Data
-
Vital Signs:
Vital Signs
Temp Pulse Resp BP Pulse Ox
98.8 F 65 20 132/74 97
11/11/24 07:40 11/11/24 09:18 11/11/24 07:40 11/11/24 09:18 11/11/24 07:40
I&O
11/10/24 11/11/24 11/12/24
06:59 06:59 06:59
Intake Total 240 / 240 1040 / 1040
Balance 240 / 240 1040 / 1040
Physical Exam
-
General: Well Developed, Well Nourished, No Apparent Distress and Comfortable
HEENT: Normocephalic, Atraumatic, Moist Mucous Membranes, No Ptosis, PERRLA and Nose Appears Normal
Respiratory: Clear to Auscultation and Non Labored Respirations
Cardiac: Regular Rhythm and S1/S2
Breast: Deferred by me
GI: Soft, Nontender, Nondistended and Normal Bowel Sounds
Genito-urinary: No Costovertebral Tender
Musculoskeletal: No Clubbing, No Cyanosis and No Edema
Skin: Warm and Lesions (Left lower extremity scar)
Neuro: Awake, Alert, Oriented, AO x 3 and No Motor Deficits
Psych: Calm
--- NOTE | 2024-11-11 12:50 | CM ---
CM following for discharge planning. Pt will return home when medically cleared.
Plan: Discharge to home with no identified needs. CM will continue to follow.
[2024-11-11] MEDS: NORVASC 10 MG PO (17:21)
[2024-11-11] MEDS: LIPITOR 40 MG PO (17:21)
[2024-11-11] MEDS: LOVENOX SC ×2 (17:22→17:27)
[2024-11-11] MEDS: PLAVIX 75 MG PO (17:22)
[2024-11-11] MEDS: ZESTRIL 20 MG PO (17:22)
--- NOTE | 2024-11-11 18:43 | PTCARENOTE ---
Patient c/o slight discomfort in middle of his chest. Patient states it is not a sarah pain but feels the discomfort starting. EKG done and MD Savage notified. will continue to monitor.
[2024-11-11] MEDS: TOPROL XL 25 MG PO (21:23)
[2024-11-12] VITALS (8 sets, daily range): BP systolic 119–162; BP diastolic 73–91
--- NOTE | 2024-11-12 02:45 | DOWNTIME ---
There was a Guidefitter Client Photography Sales Associate Downtime on 11/12/2024 from 0100 to 11/12/2024 at 0235. Downtime documentation of patient's care, including medication administrations, has been reconciled in the electronic record per guidelines. Refer to the
patient's paper chart under the miscellaneous tab to see printed paper medication records and downtime forms.
[2024-11-12 08:12] LABS: Hematocrit 37.6 % (39.0-52.0); Hemoglobin 12.7 g/dL (13.0-18.0); Mean Corp Hgb Conc. 33.8 g/dL (33.0-37.0); Mean Corpuscular Volume 85.5 fL (80.0-94.0); Platelet Count 229 10^3/uL (130-400); Red Cell Dist. Width 13.2 % (11.5-14.5)
[2024-11-12] MEDS: IMDUR (EXTENDED RELEASE) 30 MG PO (08:12)
[2024-11-12] MEDS: LOW STRENGTH ASPIRIN 81 MG PO (08:12)
[2024-11-12] MEDS: RANEXA EXTENDED RELEASE 500 MG PO ×2 (08:12→20:51)
[2024-11-12 08:46] LABS: Blood Urea Nitrogen 15 mg/dl (9-20); Calcium 8.7 mg/dl (8.4-10.2); Carbon Dioxide 28 mmol/L (22-30); Chloride 105 mmol/L (98-107); Estimated Creatinine Clearance 50 ml/min; Glucose 93 mg/dl (70-99); Potassium 4.4 mmol/L (3.5-5.1); Sodium 138 mmol/L (135-145); eGFR > 60.00
[2024-11-12 08:53] LABS: Troponin I < 0.012 ng/ml
--- NOTE | 2024-11-12 09:16 | W.PN.CARDCBS ---
Addendum entered and electronically signed by Yovanny Savage DO 11/12/24 13:04:
I saw and examined the patient.
The Horse Stud Manager's note was reviewed and I agree with the note.
Comment:
Plan:
Recurrent chest pain last night and continues to have intermittent cp.
EKG and trop appear stable after initial trop elevation, however he has hx of significant CAD
He continues with intermittent cp despite adjustment in medical therapy for angina
Discussed cath and pt is agreeable. Discussed with family at bedside and they agree.
Cont Imdur, Ranexa and beta anel
Discussed with nursing and with interventional caridology.
Original Note:
Today's Communication / Plan
-
No recurrence of chest pain in the last 24 hours
Had chest pain 11/10/24 despite increased medical therapy with Imdur ER and Ranexa and Troponin was up to 0.045 on admission, cardiac cath recommended and patient is considering options
Impression / Plan
-
PCP: Dr. Hein
Cardiology: Dr. Burris
Impression:
Admitted with chest pain/elevated troponin, peak 0.045 and normalized 11/08/24
CAD
NSTEMI with TOWN CLERK RCA and 75% mid Circ but turned down to CABG due to lack of conduits and had orbital atherectomy with Promus drug-eluting stent to mid LAD 07/2015
NSTEMI and 3.25 mm Xience to mid LAD 04/09/23
NSTEMI and 2.5 mm Aaron to ostial-prox Circ, patent mid LAD stent, TOWN CLERK RCA by cath 06/04/23
Cerebrovascular disease, history of TIA 2013
Left vertebral artery stenosis
Carotid ultrasound with <50% bilateral stenosis 2016
Degenerative disc disease
History of lower extremity del real
Hypertension
Hypercholesterolemia
Tobacco use
Noncompliance
Echo 04/09/2023: Ejection fraction 55 to 60%
Echo 11/10/24: EF 71%, mild AR, mild MR
Plan:
-Patient had chest pain on admission and Troponin as high as 0.045 and then normalized. Patient had recurrent chest pain despite changes in medical therapy and Troponin levels remained undetectable.
-On 11/11/24 patient reported recurrent chest pain from 11/10/24, he didn't tell anyone at the time. Chest pain recurred despite additions of Imdur ER 30 mg daily and Ranexa 500 mg BID.
-Patient has extensive h/o CAD and is being recommended cardiac cath for chest pain despite medical therapy, but patient is reticent given previous difficulty with orbital atherectomy in 2016. Reviewed with patient that subsequent PCI in 03/2023 and
05/2023 were uncomplicated. Also reviewed with patient's partner at the bedside 11/12/24 for about 18 minutes. Patient and partner discussing amongst themselves and will let us know decision.
-Patient was previously reluctant to use nitrates due to his use of phosphodiesterase inhibitors and nitrous oxide, but he is now using an injectable medication for ED and is agreeable to nitrate therapy
-Outpatient dose of Toprol XL 25 mg daily resumed 11/11/24, dose was initially held due to sinus bradycardia.
-Outpatient dose of atorvastatin 40 mg daily has been continued
-Echo reviewed and summarized by me, EF preserved with mild MR and AR
HPI: Randy has long coronary history, including LAD stent 2015, mid LAD stent March 2023, ostial proximal circumflex stent May 2023, TOWN CLERK of RCA. He was admitted in August 2023 with chest discomfort and was treated medically.
He is admitted with chest pain and elevated troponin. Last night he developed crushing chest pain and he took 4 baby aspirin. He could not find nitroglycerin. With persistent pain came to the ER and is admitted as troponins were elevated. Denies
chest pain at the present time. He was in the ED in August 2024 with chest discomfort and signed out AMA.
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
Subjective
Date of Service: November 12, 2024
No more chest pain in the last 24 hours
Objective
Labs:
11/12/24 07:53
11/12/24 07:53
Labs
Hgb 12.7 g/dL (13.0-18.0) L 11/12/24 07:53
Hct 37.6 % (39.0-52.0) L 11/12/24 07:53
Plt Count 229 10^3/uL (130-400) 11/12/24 07:53
APTT 24.2 Sec (23.4-35.0) 11/09/24 00:39
Sodium 138 mmol/L (135-145) 11/12/24 07:53
Potassium 4.4 mmol/L (3.5-5.1) 11/12/24 07:53
BUN 15 mg/dl (9-20) 11/12/24 07:53
Creatinine 1.0 mg/dL (0.7-1.3) 11/12/24 07:53
Glucose 93 mg/dl (70-99) 11/12/24 07:53
Troponins
11/09/24 11/10/24 11/11/24
08:17 07:15 10:26
Troponin I 0.045 H* 0.018 < 0.012
11/12/24
07:53
Troponin I < 0.012
Vital Signs and I&O:
Vital Signs
Temp Pulse Resp BP Pulse Ox
98.6 F 62 16 162/91 95
11/12/24 07:00 11/12/24 07:00 11/12/24 07:00 11/12/24 07:00 11/12/24 07:00
Vital Signs
Temp Pulse Resp BP Pulse Ox
98.6 F 62 16 162/91 95
11/12/24 07:00 11/12/24 07:00 11/12/24 07:00 11/12/24 07:00 11/12/24 07:00
Intake & Output
11/10/24 11/11/24 11/12/24 11/13/24
06:59 06:59 06:59 06:59
Intake Total 240 / 240 1040 / 1040 1450 / 1450
Balance 240 / 240 1040 / 1040 1450 / 1450
Physical Exam
Physical Exam
General: NAD
Heart: SR on tele. Reg
Lungs: RA. No audible wheeze
Extremities: No edema bilaterally.
Neuro: Grossly nonfocal
--- NOTE | 2024-11-12 13:20 | W.PN.HOSP.TC ---
Today's Communication/Plan
-
cardiac cath
Assessment / Plan
Assessment / Plan
Impression:
84 y.o smoker with h/o CAD s/p multiple stents with most recent PCI 05/2023 with stenting to L circ presenting with substernal chest pain and dynamic ECG changes. Had CP with outside hospital ECG showing anterior ST depression. CP and ECG changes
resolved with SL-nitro x 3. Currently CP free. Similar episode on 09/22 and left AMA at that time. His troponin is 0.026 then 0.03. He reports compliance with medications.
Seen by cardiology, adjusted cardiac med
11/11
Patient had chest pain last night, monitor for additional day and keep n.p.o. after midnight.
11/12
Cardiology commending cardiac cath
Assessment/plan:
Chest pain - ACS w/o NV at this time.
Currently chest pain-free.
Continue hall monitor.
Seen by cardiology.
Added Imdur, increase Norvasc and have started Ranexa
Monitor troponin and if markedly elevated to consider cardiac cath
Troponin level improved
echo shows:
1. Aortic valve is tri-leaflet. There is mild multiple aortic cusp thickening. Mild aortic regurgitation.
2. Compared to a prior transthoracic echocardiogram study from 03/30/23 no significant changes are seen.
3. Left ventricle is normal in size and function.
4. Aortic annulus is mildly dilated.
5. Indexed left atrial volume is severely abnormal (>48 ml/m2).
6. Mild left ventricular hypertrophy.
11/11
Patient again developed chest pain last night which is mild.
Cardiology recommending monitor for additional day and if more chest pain to keep n.p.o. for possible cardiac cath in am
11/12
Cardiology commending cardiac cath
Hypertension
- continue metoprolol, lisinopril and norvasc
History of hyperlipidemia.
Continue atorvastatin
CODE STATUS: Full code
DVT prophylaxis: Lovenox
Diet: Regular diet
Disposition: Cardiac cath
Family communication: Discussed with family at bedside.
Total time spent on today's encounter was 65 minutes which included time spent in counseling the patient/family regarding diagnosis and treatment plan as listed above, goals of care, and symptom management. Case was discussed with nursing staff,
specialists, and care coordinators/case management. All labs and imaging personally reviewed by me. Remainder the time spent in detailed review of previous records, lab data, imaging, and other medical provider documentation.
Anticipated Discharge: 24 - 48 hours
Subjective/Interval History
-
Date of Service: November 12, 2024
Patient seen and examined at bedside, denies any chest pain or shortness of breath, no abdominal pain, no nausea, no vomiting, no diarrhea or constipation.
The recommended cardiac cath.
Objective Data
-
Labs:
Laboratory Results
11/12/24
07:53
WBC 5.3
Hgb 12.7 L
Hct 37.6 L
Plt Count 229
Sodium 138
Potassium 4.4
Chloride 105
Carbon Dioxide 28
BUN 15
Creatinine 1.0
Glucose 93
Calcium 8.7
Vital Signs:
Vital Signs
Temp Pulse Resp BP Pulse Ox
98.3 F 82 17 127/73 96
11/12/24 11:00 11/12/24 11:00 11/12/24 11:00 11/12/24 11:00 11/12/24 11:00
I&O
11/11/24 11/12/24 11/13/24
06:59 06:59 06:59
Intake Total 1040 / 1040 1450 / 1450
Balance 1040 / 1040 1450 / 1450
Physical Exam
-
General: Well Developed, Well Nourished, No Apparent Distress and Comfortable
HEENT: Normocephalic, Atraumatic, Moist Mucous Membranes, No Ptosis, PERRLA and Nose Appears Normal
Respiratory: Clear to Auscultation and Non Labored Respirations
Cardiac: Regular Rhythm and S1/S2
Breast: Deferred by me
GI: Soft, Nontender, Nondistended and Normal Bowel Sounds
Genito-urinary: No Costovertebral Tender
Musculoskeletal: No Clubbing, No Cyanosis and No Edema
Skin: Warm and Lesions (Left lower extremity scar)
Neuro: Awake, Alert, Oriented, AO x 3 and No Motor Deficits
Psych: Calm
--- NOTE | 2024-11-12 15:26 | ITS.CL.CATH ---
Hospital Nursing Assistant - Catheterization
Cardiac Catheterization
Procedure Report:
LEFT HEART CATHETERIZATION AND CORONARY INTERVENTION
Date of Procedure: November 12, 2024
Referring: Gene Aguilar.
PROCEDURES:
1. Left heart catheterization, coronary angiogram.
2. Moderate sedation.
3. Successful percutaneous coronary artery intervention of a focal 75 to 80% proximal left circumflex in-stent restenosis with one 2.5 x 12 mm Medtronic Oneonta drug-eluting stent, postdilated using a 2.5 x 12 mm NC balloon with an excellent
angiographic result.
INDICATION:Concern for NSTEMI
ACCESS: Right common femoral artery, 6 Polish sheath, under US guidance with micropuncture kit.
HEMODYNAMICS : (mmHg)
AO (s/d) : 155/69
LVEDP : 15
No significant gradient across the aortic valve to suggest aortic stenosis.
INDICATION: Randy is a 84-year-old gentleman with hypertension, hyperlipidemia, coronary artery disease status post multiple stents in 2016 and 2019 after being turndown for CABG in 2016 secondary to poor conduit availability. He was last admitted
to [facility] in May 2023 and underwent PCI to ostial to proximal left circumflex. He has a known chronic total occlusion of ostial RCA which is collateralized from the circumflex artery. He comes back in with exertional chest
discomfort along with progressive dyspnea and at times having rest angina found to have a peak troponin of 0.45 and is now being referred for a left heart catheterization. At of note he underwent a 3.25 mm Xience stent to mid LAD in March 2023,
2.5 x 15 mm Medtronic Aaron drug-eluting stent to ostial/proximal left circumflex in May 2023. Previously he has had from his drug-eluting stent to mid LAD in 2016.
CORONARY FINDINGS
Dominance: Right
LEFT MAIN: The left main artery is a large-caliber vessel which gives rise to the left anterior descending artery and the left circumflex artery. There is mild distal tapering but no obstructive disease.
LEFT ANTERIOR DESCENDING: The left anterior descending artery is a large-caliber heavily calcified vessel which gives rise to 2 major diagonal branches as it courses to the anterior interventricular groove and wraps around the apex. Previously
placed mid LAD stents are widely patent. D2 is a small caliber vessel, heavily calcified with a subtotal occlusion in the proximal portion with left to left collaterals.
CIRCUMFLEX: The left circumflex artery is a medium caliber vessel which gives rise to 1 large obtuse marginal branch. There is a previously placed ostial to proximal left circumflex stent noted with a focal 75 to 80% stenosis towards the distal
edge which is thought to be the culprit of presenting ACS with intervention as noted below. The prior OM stent in the mid to distal circumflex is widely patent. There are well-developed collaterals to the occluded RCA
RIGHT CORONARY: Known to be 100% occluded at its origin.
CORONARY INTERVENTION: Additional heparin was given to maintain a therapeutic ACT throughout the case. The left coronary artery was selectively engaged using a 6 Polish EBU 3.75 guide catheter. The lesion in the proximal left circumflex was
navigated carefully using a 190 cm 0.014' run-through coronary wire which was parked in the distal vessel. The lesion was predilated using a 2.5 x 12 mm semicompliant balloon with full expansion and subsequently stented with a 2.5 x 12 mm Medtronic
Oneonta drug-eluting stent. The stent was postdilated using a 2.5 mm NC balloon at high pressure with an excellent angiographic result. Patient tolerated the procedure well with no acute complications. He was reloaded with 300 mg of Plavix at the
end of the case.
SEDATION: 67 minutes of procedural sedation was utilized. IV Midazolam and IV Fentanyl were administered. An independent certified medical asst was present to assist with and help manage the patient's level of consciousness and physiologic status.
RADIATION SUMMARY: Fluoro Time (min): 77, Dose (mGy): 27.5, DAP (Gy.cm2) : 656.1
Femoral angiography: Femoral arteriotomy is noted to be above the bifurcation and below the inferior epigastric artery. There is minimal luminal irregularities in the visualized external iliac and femoral vessels.
Closure Device: 6 Polish Angio-Seal over the right common femoral artery with successful hemostasis
CONCLUSIONS
1. Successful percutaneous coronary artery intervention of a focal 75 to 80% proximal left circumflex in-stent restenosis with one 2.5 x 12 mm Medtronic Oneonta drug-eluting stent, postdilated using a 2.5 x 12 mm NC balloon with an excellent
angiographic result.
2. LVEDP 15mmHG
RECOMMENDATIONS
1. Wean radial band per protocol. Monitor right hand perfusion and for bleeding from the radial site following removal of the vascular-band following trans-radial access.
2. Continue aggressive medical therapy and risk factor modification for secondary CAD prevention.
3. Continue ASA 81 mg daily for life.
4. Continue plavix for at least 12 months of uninterrupted dual anti-platelet therapy given drug-eluting stent (YUSRA) implantation to mitigate the risk of stent thrombosis. This is not to be stopped for any reason without the guidance of a
learning support services director.
5. Hydrate with normal saline to mitigate the risk of contrast-induced acute kidney injury.
6. Referral for outpatient cardiac rehab.
7. Follow-up with Dr. Burris.
Copy to: Gene Aguilar. and Aashish Burris
[2024-11-12 16:07] LABS: ACT-LR - POC 247 Seconds (116-155)
[2024-11-12 16:17] LABS: ACT-LR - POC 308 Seconds (116-155)
[2024-11-12 16:36] LABS: ACT-LR - POC 261 Seconds (116-155)
--- NOTE | 2024-11-12 17:15 | PTCARENOTE ---
report received from hemodialysis lab technician at 1700. [id number]. vss. fem dressing cdi. + fem pulse. + dorsalis pulse. ekg- nsr. pt updated on plan of care. friend at bedside. will monitor.
[2024-11-12] MEDS: NORVASC 10 MG PO (17:50)
[2024-11-12] MEDS: ZESTRIL 20 MG PO (17:50)
[2024-11-12] MEDS: LIPITOR 40 MG PO (17:53)
[2024-11-12] MEDS: TOPROL XL 25 MG PO (22:12)
--- NOTE | 2024-11-12 23:19 | PTCARENOTE ---
Received patient at change of shift. SB on the monitor, HR in the 50s. VSS on room air. R groin dressing CDI, soft. No chest pain at this time. Call tovar within reach.
[2024-11-13 01:57] VITALS: BP 151/81
[2024-11-13 02:41] LABS: Hematocrit 35.3 % (39.0-52.0); Hemoglobin 12.2 g/dL (13.0-18.0); Mean Corp Hgb Conc. 34.6 g/dL (33.0-37.0); Mean Corpuscular Volume 83.5 fL (80.0-94.0); Platelet Count 228 10^3/uL (130-400); Red Cell Dist. Width 13.2 % (11.5-14.5)
[2024-11-13 02:52] LABS: Blood Urea Nitrogen 18 mg/dl (9-20); Calcium 8.6 mg/dl (8.4-10.2); Carbon Dioxide 24 mmol/L (22-30); Chloride 107 mmol/L (98-107); Estimated Creatinine Clearance 55 ml/min; Glucose 89 mg/dl (70-99); Potassium 4.4 mmol/L (3.5-5.1); Sodium 135 mmol/L (135-145); eGFR > 60.00
[2024-11-13 08:29] VITALS: BP 141/68
[2024-11-13] MEDS: RANEXA EXTENDED RELEASE 500 MG PO (08:35)
[2024-11-13] MEDS: LOW STRENGTH ASPIRIN 81 MG PO (08:35)
[2024-11-13] MEDS: IMDUR (EXTENDED RELEASE) 30 MG PO (08:35)
--- NOTE | 2024-11-13 09:00 | W.PN.HOSP.TC ---
Today's Communication/Plan
-
possible discharge home today of cleared by cardiology.
Assessment / Plan
Assessment / Plan
Impression:
84 y.o smoker with h/o CAD s/p multiple stents with most recent PCI 05/2023 with stenting to L circ presenting with substernal chest pain and dynamic ECG changes. Had CP with outside hospital ECG showing anterior ST depression. CP and ECG changes
resolved with SL-nitro x 3. Currently CP free. Similar episode on 09/22 and left AMA at that time. His troponin is 0.026 then 0.03. He reports compliance with medications.
Seen by cardiology, adjusted cardiac med
Patient had chest pain.
Cardiology commending cardiac cath, cardiac cath on 11/12 with Successful percutaneous coronary artery intervention of a focal 75 to 80% proximal left circumflex in-stent restenosis with one 2.5 x 12 mm Medtronic [place] drug-eluting stent,
postdilated using a 2.5 x 12 mm NC balloon with an excellent angiographic result.
Continue ASA 81 mg daily for life.
Continue plavix for at least 12
possible discharge home today of cleared by cardiology
Assessment/plan:
Chest pain - NSTEMI
Currently chest pain-free.
Continue engine monitor.
Seen by cardiology.
Added Imdur, increase Norvasc and have started Ranexa
Monitor troponin and if markedly elevated to consider cardiac cath
Troponin level improved
echo shows:
1. Aortic valve is tri-leaflet. There is mild multiple aortic cusp thickening. Mild aortic regurgitation.
2. Compared to a prior transthoracic echocardiogram study from 03/30/23 no significant changes are seen.
3. Left ventricle is normal in size and function.
4. Aortic annulus is mildly dilated.
5. Indexed left atrial volume is severely abnormal (>48 ml/m2).
6. Mild left ventricular hypertrophy.
11/11
Patient again developed chest pain last night which is mild.
Cardiology recommending monitor for additional day and if more chest pain to keep n.p.o. for possible cardiac cath in am
11/12
Cardiology commending cardiac cath.
11/13
S/P cardiac cath on 11/12 with Successful percutaneous coronary artery intervention of a focal 75 to 80% proximal left circumflex in-stent restenosis with one 2.5 x 12 mm Medtronic [place] drug-eluting stent, postdilated using a 2.5 x 12 mm NC balloon
with an excellent angiographic result.
Continue ASA 81 mg daily for life.
Continue plavix for at least 12
possible discharge home today of cleared by cardiology.
Hypertension
- continue metoprolol, lisinopril and norvasc
History of hyperlipidemia.
Continue atorvastatin
CODE STATUS: Full code
DVT prophylaxis: Lovenox
Diet: Regular diet
Disposition: possible discharge home today of cleared by cardiology.
Family communication: Discussed with family at bedside.
Total time spent on today's encounter was 65 minutes which included time spent in counseling the patient/family regarding diagnosis and treatment plan as listed above, goals of care, and symptom management. Case was discussed with nursing staff,
specialists, and care coordinators/case management. All labs and imaging personally reviewed by me. Remainder the time spent in detailed review of previous records, lab data, imaging, and other medical provider documentation.
Anticipated Discharge: Today
Subjective/Interval History
-
Date of Service: November 13, 2024
Patient seen and examined at bedside, denies any chest pain or shortness of breath, no abdominal pain, no nausea, no vomiting, no diarrhea or constipation.
S/P cardiac cath 11/12.
Objective Data
-
Labs:
Laboratory Results
11/13/24
02:13
WBC 6.1
Hgb 12.2 L
Hct 35.3 L
Plt Count 228
Sodium 135
Potassium 4.4
Chloride 107
Carbon Dioxide 24
BUN 18
Creatinine 0.9
Glucose 89
Calcium 8.6
Vital Signs:
Vital Signs
Temp Pulse Resp BP Pulse Ox
98.1 F 59 18 151/81 96
11/13/24 02:16 11/13/24 05:45 11/13/24 02:16 11/13/24 01:57 11/13/24 02:16
I&O
11/12/24 11/13/24 11/14/24
06:59 06:59 06:59
Intake Total 1450 / 1450
Output Total 500 / 500
Balance 1450 / 1450 -500 / -500
Physical Exam
-
General: Well Developed, Well Nourished, No Apparent Distress and Comfortable
HEENT: Normocephalic, Atraumatic, Moist Mucous Membranes, No Ptosis, PERRLA and Nose Appears Normal
Respiratory: Clear to Auscultation and Non Labored Respirations
Cardiac: Regular Rhythm and S1/S2
Breast: Deferred by me
GI: Soft, Nontender, Nondistended and Normal Bowel Sounds
Genito-urinary: No Costovertebral Tender
Musculoskeletal: No Clubbing, No Cyanosis and No Edema
Skin: Warm and Lesions (Left lower extremity scar)
Neuro: Awake, Alert, Oriented, AO x 3 and No Motor Deficits
Psych: Calm
--- NOTE | 2024-11-13 09:05 | PTCARENOTE ---
pt aaox3. states no pain or sob. right groin site dressing intact with some light pink drainage. no hematoma noted
--- NOTE | 2024-11-13 10:38 | W.PN.CARDCBS ---
Addendum entered and electronically signed by Yg Nation MD 11/13/24 12:10:
I saw and examined the patient.
The Staff Physical Therapy Assistant's note was reviewed and I agree with the note.
Comment: 84-year-old man past medical history multivessel CAD with multiple coronary interventions in the past presenting with chest discomfort and low-level troponin elevation. Initially attempts were made for medical management but ultimately
decision was for invasive coronary angiography performed 11/12/2024. He was found to have left circumflex territory in-stent restenosis which was treated with a drug-eluting stent.
At the time my evaluation this morning patient tells me he is feeling well, no cardiac complaints including no chest discomfort or dyspnea
Right femoral artery access site clean, dry and intact
Plan to discharge on aspirin/Plavix and high intensity statin with metoprolol and amlodipine as antianginals
He is agreeable to cardiac rehab
Stable to discharge from my perspective, outpatient follow-up has been arranged
Original Note:
Today's Communication / Plan
-
Stop Ranexa and Imdur ER
Rx for Nitro tab SL
Decrease Toprol-XL to 12.5 mg daily due to bradycardia and fatigue, discharge orders changed by me
D/C to home
Impression / Plan
-
PCP: Dr. Hein
Cardiology: Dr. Burris
Impression:
Admitted with chest pain/elevated troponin, peak 0.045 and normalized 11/08/24
[place]
CAD
NSTEMI with TELETRAY OPERATOR RCA and 75% mid Circ but turned down to CABG due to lack of conduits and had orbital atherectomy with Promus drug-eluting stent to mid LAD 07/2015
NSTEMI and 3.25 mm [place]ience to mid LAD 04/09/23
NSTEMI and 2.5 mm [place] to ostial-prox Circ, patent mid LAD stent, TELETRAY OPERATOR RCA by cath 06/04/23
s/p 2.5 mm [place] YUSRA to an area of in-stent restenosis at the proximal circumflex 11/12/2024
Cerebrovascular disease, history of TIA 2013
Left vertebral artery stenosis
Carotid ultrasound with <50% bilateral stenosis 2016
Degenerative disc disease
History of lower extremity del real
Hypertension
Hypercholesterolemia
Tobacco use
Noncompliance
Echo 04/09/2023: Ejection fraction 55 to 60%
Echo 11/10/24: EF 71%, mild AR, mild MR
Plan:
-Patient had chest pain on admission and Troponin as high as 0.045 and then normalized. Patient had recurrent chest pain despite changes in medical therapy and Troponin levels remained undetectable. Patient was agreeable to addition of Ranexa and
Imdur ER this admission, but continued to have chest pain prompting cardiac cath and PCI this admission.
-Patient had previously been resistant to addition of nitrates because he was using phosphodiesterase inhibitors and nitrous oxide for ED, but he has recently switched to an injectable medication for ED and so he was agreeable to the addition of
Imdur ER 30 mg daily and Ranexa 500 mg BID this admission.
-Due to recurrent chest pain patient was agreeable to cardiac cath on 11/12/2024 where he was found to have a area of focal in-stent restenosis of the proximal circumflex that was stented with a 2.5 mm [place] YUSRA.
-ECG reviewed by me 11/13/2024 is sinus bradycardia without acute ST or T wave changes
-Talked with patient and he understands the importance of continuing with his aspirin and Plavix. Patient says he has a full bottle of Plavix at home and does not need refills, we talked about continuing Plavix for at least another year without
interruption.
-Check CVE, ordered by me. Patient is reporting that he only takes his atorvastatin every couple of days because he does not think that he has an issue with cholesterol despite multiple MIs and PCI's.
-Outpatient dose of Toprol XL 25 mg daily was initially held due to sinus bradycardia, resumed 11/11/24. Patient has sinus bradycardia and reports fatigue on 11/13/2024, will decrease Toprol-XL dose to 12.5 mg daily.
-Outpatient dose of atorvastatin 40 mg daily has been continued
-Echo reviewed and summarized by me, EF preserved with mild MR and AR
-Patient is stable for discharge to home on 11/13/2024, he is set up for cardiac rehab and follow-up in the cardiology office. Communicated via TT with hospitalist attending.
HPI: Randy has long coronary history, including LAD stent 2015, mid LAD stent March 2023, ostial proximal circumflex stent May 2023, TELETRAY OPERATOR of RCA. He was admitted in August 2023 with chest discomfort and was treated medically.
He is admitted with chest pain and elevated troponin. Last night he developed crushing chest pain and he took 4 baby aspirin. He could not find nitroglycerin. With persistent pain came to the ER and is admitted as troponins were elevated. Denies
chest pain at the present time. He was in the ED in August 2024 with chest discomfort and signed out AMA.
Progress Note - Animal Technician
Subjective
Date of Service: November 13, 2024
He feels well and wants to go home
Objective
Labs:
11/13/24 02:13
11/13/24 02:13
Labs
Hgb 12.2 g/dL (13.0-18.0) L 11/13/24 02:13
Hct 35.3 % (39.0-52.0) L 11/13/24 02:13
Plt Count 228 10^3/uL (130-400) 11/13/24 02:13
APTT 24.2 Sec (23.4-35.0) 11/09/24 00:39
Sodium 135 mmol/L (135-145) 11/13/24 02:13
Potassium 4.4 mmol/L (3.5-5.1) 11/13/24 02:13
BUN 18 mg/dl (9-20) 11/13/24 02:13
Creatinine 0.9 mg/dL (0.7-1.3) 11/13/24 02:13
Glucose 89 mg/dl (70-99) 11/13/24 02:13
Troponins
11/11/24 11/12/24
10:26 07:53
Troponin I < 0.012 < 0.012
Vital Signs and I&O:
Vital Signs
Temp Pulse Resp BP Pulse Ox
98.2 F 59 18 151/81 98
11/13/24 09:05 11/13/24 05:45 11/13/24 02:16 11/13/24 01:57 11/13/24 09:05
Vital Signs
Temp Pulse Resp BP Pulse Ox
98.2 F 59 18 151/81 98
11/13/24 09:05 11/13/24 05:45 11/13/24 02:16 11/13/24 01:57 11/13/24 09:05
Intake & Output
11/11/24 11/12/24 11/13/24 11/14/24
06:59 06:59 06:59 06:59
Intake Total 1040 / 1040 1450 / 1450
Output Total 500 / 500
Balance 1040 / 1040 1450 / 1450 -500 / -500
Physical Exam
Physical Exam
General: NAD
Heart: SR on tele. Reg
Lungs: RA. No audible wheeze
Extremities: No edema bilaterally.
Neuro: Grossly nonfocal
--- NOTE | 2024-11-13 11:10 | W.DCSUMMARY ---
Discharge Summary
Discharge Data
Date of Admission: 11/12/24
Date of Discharge: 11/13/24
Total time spent discharging patient (in min): 40
-
Pending Results: No
Hospital Course
Hospital course
84 y.o smoker with h/o CAD s/p multiple stents with most recent PCI 05/2023 with stenting to L circ presenting with substernal chest pain and dynamic ECG changes. Had CP with outside hospital ECG showing anterior ST depression. CP and ECG changes
resolved with SL-nitro x 3. Currently CP free. Similar episode on 09/22 and left AMA at that time. His troponin is 0.026 then 0.03. He reports compliance with medications.
Seen by cardiology, adjusted cardiac med
Patient had chest pain.
Cardiology commending cardiac cath, cardiac cath on 11/12 with Successful percutaneous coronary artery intervention of a focal 75 to 80% proximal left circumflex in-stent restenosis with one 2.5 x 12 mm Medtronic [place] drug-eluting stent,
postdilated using a 2.5 x 12 mm NC balloon with an excellent angiographic result.
Continue ASA 81 mg daily for life.
Continue plavix for at least 12
possible discharge home today of cleared by cardiology
During hospitalization patient was treated from the following
Chest pain - NSTEMI
Currently chest pain-free.
Continue hospital monitor.
Seen by cardiology.
Added Imdur, increase Norvasc and have started Ranexa
Monitor troponin and if markedly elevated to consider cardiac cath
Troponin level improved
echo shows:
1. Aortic valve is tri-leaflet. There is mild multiple aortic cusp thickening. Mild aortic regurgitation.
2. Compared to a prior transthoracic echocardiogram study from 03/30/23 no significant changes are seen.
3. Left ventricle is normal in size and function.
4. Aortic annulus is mildly dilated.
5. Indexed left atrial volume is severely abnormal (>48 ml/m2).
6. Mild left ventricular hypertrophy.
11/11
Patient again developed chest pain last night which is mild.
Cardiology recommending monitor for additional day and if more chest pain to keep n.p.o. for possible cardiac cath in am
11/12
Cardiology commending cardiac cath.
11/13
S/P cardiac cath on 11/12 with Successful percutaneous coronary artery intervention of a focal 75 to 80% proximal left circumflex in-stent restenosis with one 2.5 x 12 mm Medtronic [place] drug-eluting stent, postdilated using a 2.5 x 12 mm NC balloon
with an excellent angiographic result.
Continue ASA 81 mg daily for life.
Continue plavix for at least 12
possible discharge home today of cleared by cardiology.
Hypertension
- continue metoprolol, lisinopril and norvasc
History of hyperlipidemia.
Continue atorvastatin
CODE STATUS: Full code
DVT prophylaxis: Lovenox
Diet: Regular diet
Disposition: possible discharge home today of cleared by cardiology.
Family communication: Discussed with family at bedside.
Total time spent on today's encounter was 40 minutes which included time spent in counseling the patient/family regarding diagnosis and treatment plan as listed above, goals of care, and symptom management. Case was discussed with nursing staff,
specialists, and care coordinators/case management. All labs and imaging personally reviewed by me. Remainder the time spent in detailed review of previous records, lab data, imaging, and other medical provider documentation.
Anticipated Discharge: Today
Discharge Plan
-
Patient Disposition: Home (Routine Discharge)
Discharge Diagnosis/Procedures: Angioplasty with stent to Left circumflex artery
NSTEMI
Hypertension
Diet: Low Cholesterol and Low Sodium
Activity: As tolerated
Driving Restrictions: No driving for 24 hours
Bathing Restrictions: OK to Shower
Other Services: Cardiac Rehab
Stand Alone Forms: DC Instructions- Cath/EP Lab
Referrals:
[facility]. Cardiac Rehab [Outside] - 12/15/24 10:00 am
Referral Note: Cardiac Rehab Orientation appointment and� First Exercise appointment is on 12/15 at 10 AM
The Cardiac Rehab gym is located on the first floor of the [facility].
Deepika Paez PA-C [Specified Professional Personl, Cardiology] - 12/09/24 3:20 pm
Irwin Hein MD [Family Provider, Internal Medicine]
Additional Discharge Medication Instructions: - Take aspirin and Plavix (clopidogrel) every day without interruption, missing any doses of aspirin or Plavix could result in heart attack or problems with your heart stents
- Decrease your dose of Toprol-XL (metoprolol succinate) to 12.5 mg (1/2 of a 25 mg tablet) once daily
- Increase your dose of amlodipine to 10 mg (two 5 mg tablets) once a day
Prescriptions:
New
aspirin 81 mg Tablet,Chewable
81 mg PO DAILY Qty: 30 0RF
nitroglycerin 0.4 mg Tablet, Sublingual
0.4 mg sublingual [id number] PRN (Reason: chest pain) Qty: 60 1RF
metoprolol succinate [Toprol XL] 25 mg tablet extended release 24 hr
12.5 mg PO DAILY Qty: 30 11RF
Continued
atorvastatin 80 mg tablet
40 mg PO QPM
lisinopril 20 mg tablet
20 mg PO QPM Qty: 30 0RF
clopidogrel 75 mg Tablet
75 mg PO QPM Qty: 30 0RF
Changed
amlodipine 5 mg tablet
10 mg PO QPM Qty: 30 0RF
Discontinued
metoprolol succinate 25 mg tablet extended release 24 hr
25 mg PO QPM Qty: 30 0RF
Discharge Orders:
Discharge Patient (As Directed); Ordered 11/13/24
Ordered By: Darlin Orta
Discharge Date and Time
Print Language: [place]
[2024-11-13 11:33] VITALS: BP 123/72
--- NOTE | 2024-11-13 11:57 | CM ---
Reviewed chart. Mr. Lau was transferred to IVU. Met with Mr. Lau to review discharge plans. He states he is feeling well and maybe able to go home soon. He states prior to admission he resides alone in a two story home with two steps to
enter. He states he has a full flight of steps to get to bedroom/full bathroom. He states he has a powder room on the first floor. He states prior to admission he was independemt
--- NOTE | 2024-11-13 12:02 | CM ---
Reviewed chart. Mr. Lau was transferred to IVU. He states prior to admission he resides alone in a two story home with two steps to enter. He states he has a full flight of steps to get to bedroom/full bathroom. He states he has a powder room
on the first floor. He states he prior to admission he was independent with ambulation and adls. He states he does not have any DME in the home. He states he has a prescription plan and uses [facility]. Medical work-up in progress. The
discharge plan is to return home when medically stable.
[2024-11-13 12:07] VITALS: BP 123/72
== END 2024-11-13 13:53 | disposition home or self-care (01) | DRG 321 ==
LOC: IVU 11:57
PROVIDERS: Internal Medicine Interventional Cardiology; Nurse Practitioner Adult Health; Physician Assistant; ADMITTING PHYSICIAN Internal Medicine; ATTENDING PHYSICIAN General Practice; CONSULT PHYSICIAN Internal Medicine Cardiovascular Disease; EMERGENCY PHYSICIAN Emergency Medicine; FAMILY PHYSICIAN Internal Medicine
PROC: 027034Z Dilation of Coronary Artery, One Artery with Drug-eluting Intraluminal Device, Percutaneous Approach (ICD-10-PCS; 2024-11-12)
PROC: B2111ZZ Fluoroscopy of Multiple Coronary Arteries using Low Osmolar Contrast (ICD-10-PCS; 2024-11-12)
PROC: 4A023N7 Measurement of Cardiac Sampling and Pressure, Left Heart, Percutaneous Approach (ICD-10-PCS; 2024-11-12)
PROC: B2151ZZ Fluoroscopy of Left Heart using Low Osmolar Contrast (ICD-10-PCS; 2024-11-12)
DX: T82.855A Stenosis of coronary artery stent, initial encounter (principal); I21.4 Non-ST elevation (NSTEMI) myocardial infarction; I25.10 Atherosclerotic heart disease of native coronary artery without angina pectoris; N40.0 Benign prostatic hyperplasia without lower urinary tract symptoms; K21.9 Gastro-esophageal reflux disease without esophagitis; I10 Essential (primary) hypertension; I25.82 Chronic total occlusion of coronary artery; E78.00 Pure hypercholesterolemia, unspecified; F17.290 Nicotine dependence, other tobacco product, uncomplicated; I65.23 Occlusion and stenosis of bilateral carotid arteries; Y83.1 Surgical operation with implant of artificial internal device as the cause of abnormal reaction of the patient, or of later complication, without mention of misadventure at the time of the procedure; J44.9 Chronic obstructive pulmonary disease, unspecified; I25.2 Old myocardial infarction; Z79.02 Long term (current) use of antithrombotics/antiplatelets; Z79.82 Long term (current) use of aspirin; Z79.899 Other long term (current) drug therapy; Z91.198 Patient's noncompliance with other medical treatment and regimen for other reason; Z95.5 Presence of coronary angioplasty implant and graft; Z86.73 Personal history of transient ischemic attack (TIA), and cerebral infarction without residual deficits; Z95.1 Presence of aortocoronary bypass graft
CPT/HCPCS: 80048; 80053; 84484; 85025; 85027; 85347; 85730; 93005; 93306; 93458; 99152; 99153; 99291; C1725; C1760; C1769; C1874; C1894; C9600; Q9967